=== PATIENT | female | born 1960 | race Caucasian/White ===

== ENCOUNTER 2016-08-15 16:09 | Observation (INO) ==
[2016-08-15 17:03] LABS: MANUAL DIFF NEEDED? NO
[2016-08-15 17:04] LABS: BASO% 0.1 % (0.0-0.8); EOS# 0.24 X1000 (0.0-0.7); EOS% 3.2 % (0.0-10.0); HEMATOCRIT 36.1 % (37.0-47.0); HEMOGLOBIN 11.6 g/dL (12.0-16.0); IMM GRAN# 0.02 X1000 (0.0-0.04); IMM GRAN% 0.3 % (0.0-0.5); LYMPH# 1.41 X1000 (1.2-3.4); MCH 27.6 PG (27-31); MCHC 32.1 g/dL (33-37); MCV 85.7 FL (81-99); MONO# 0.61 X1000 (0.11-0.59); MONO% 8.2 % (1.7-9.3); MPV 9.3 FL (7.4-10.4); NEUT% 69.2 % (42.2-75.2); PLT 230 X1000 (130-400); RBC 4.21 XMIL (4.2-5.4)
[2016-08-15 17:12] LABS: INR 1.03; PROTIME 10.9 Seconds (9.2-11.7); PTT 27.5 Seconds (22.0-36.0)
[2016-08-15 17:21] LABS: ALBUMIN 3.7 g/dL (3.5-5.0); CALCIUM 8.9 mg/dL (8.8-10.2); MAGNESIUM 1.4 mg/dL (1.5-2.7); POTASSIUM 4.4 mmol/L (3.5-5.1); TOTAL BILIRUBIN 0.27 mg/dL (0.20-1.00); TOTAL PROTEIN 6.5 g/dL (6.3-8.3)
--- NOTE | 2016-08-15 17:57 | Diag Imaging Result Document ---
PROCEDURE NAME: HEAD W/O CONTRAST - 08/15/2016 CT HEAD WITHOUT CONTRAST: FINDINGS: A dose reduction protocol was used. Compared with 10/14/2014. There is no evidence of hemorrhage, mass effect, midline shift, or hydrocephalus. There are minimal chronic microvascular ischemic changes. There is no evidence of infarct, although acute infarcts may not be immediately visible. Visualized portions of paranasal sinuses appear essentially clear. IMPRESSION: No visible acute intracranial abnormality. No hemorrhage or mass effect.
[2016-08-15] MEDS ORDERED: MAGNESIUM SULFATE 2 GM/S.W.I. 50 ML IV ONE (18:00)
--- NOTE | 2016-08-15 18:06 | Diag Imaging Result Document ---
PROCEDURE NAME: CHEST-2 VIEWS - 08/15/2016 CHEST 2 VIEWS: COMPARISON: Compared with 03/01/2016. FINDINGS: Heart size appears the upper range of normal and stable. There is slight fullness at the right hilum, possibly related to mild perihilar infiltrate or atelectasis. The remainder of the lungs appear clear. There is no pleural effusion or pneumothorax identified. IMPRESSION: Slight fullness at the right hilum, which may relate to mild perihilar infiltrate or atelectasis. Followup is recommended.
--- NOTE | 2016-08-15 18:39 | HISTORY AND PHYSICAL ---
CHIEF COMPLAINT: Headache and accelerated hypertension. HISTORY OF PRESENT ILLNESS: Ms Gamble, 56-year-old white female patient with multiple medical problems including longstanding diabetes, poorly controlled, hypertension, hyperlipidemia, COPD requiring home oxygen, mood disorder, uterine cancer. The patient claims she had headache for 3 days throbbing in nature, associated with mild nausea. The patient claims she had migraines for many years. Usually she takes [id number] Aleve, Advil or Excedrin which takes care of her headache. She took those medicines but it was not helping. She did have some nausea. The patient came to my office. Her systolic blood pressure was more than 200. Patient was in mild to moderate distress. I evaluated the patient. Because of her headache, accelerated blood pressure and other risk factor, I decided to admit the patient for further care. The patient was also complaining of pain in her ear. No ear drainage. She denied any sore throat. No dysphagia or odynophagia. No spitting up of blood. No neck stiffness. The patient does have cough with scanty sputum production. The patient does get short of breath with exertion. No abdominal pain. Denied any diarrhea, blood or mucus in the stool. Complaining of urinary frequency, urgency, dysuria, at times pain in the lower back and legs. No history suggestive of DVT. The patient does have longstanding diabetes. Her blood sugar was staying high. No major hypoglycemic episode. The patient is poorly compliant to diet and medication. The patient does have depression and mood disorder. The patient does have labile mood. No suicidal or homicidal ideation. ALLERGIES: Patient is allergic to codeine. HOME MEDICATIONS: Include Levemir 50 units once a day, NovoLog 12 units twice a day, metformin 850 mg b.i.d., Zestril 20 mg daily, Toprol-XL 50 mg b.i.d., Lipitor 40 mg daily, the patient is on Effexor 150 mg daily, Lamictal 150 mg b.i.d., the patient is on trazodone she does not remember the dose. The patient is on Risperdal. PAST MEDICAL HISTORY: Hypertension, hyperlipidemia, diabetes mellitus, mood disorder, uterine cancer status post hysterectomy, migraine headache, low back pain. The patient had a cholecystectomy, appendectomy, right ankle surgery. Patient had stent placement in LAD. PERSONAL HISTORY: Single. Patient trying to quit smoking. She is on Chantix still smoking 4-5 cigarettes a day. Denied alcohol or substance abuse. Patient is being followed by psychiatrist for her mood disorder. REVIEW OF SYSTEMS: As per HPI. Otherwise unobtainable. PHYSICAL EXAMINATION: GENERAL: Middle-aged white female patient in mild distress. VITAL SIGNS: Blood pressure 180/77, pulse 75, respirations 20, temperature 98 degrees. SKIN: Normal turgor. No rash or petechiae. HEENT: Head atraumatic, normocephalic. [place] conjunctivae. Anicteric sclerae. Extraocular muscle movement normal. Fundus cannot be penetrated. Good oral hygiene. No tonsillopharyngeal congestion or exudate. Both ears did show some orchitis externa. Nose benign. NECK: Supple. No JVD, thyromegaly or lymphadenopathy. CHEST: Bilateral good air entry present. Bibasilar crepitation. Occasional wheezing. CARDIOVASCULAR: S1 and S2 heard. No gallop or thrill. ABDOMEN: Soft, globular. Bowel sounds present. Mild hypogastric tenderness. No guarding or rigidity. EXTREMITIES: No cyanosis, clubbing. No acute DVT. Minimal swelling most likely due to dependency in the lower legs. Crepitation both the knee joints. POLE CUTTER: Alert, awake, oriented x3. No focalities. The patient did have labile mood. LAB DATA: Revealed WBC count 7.41, hemoglobin 11.6, hematocrit 36.1, platelet count was 230,000. PT and PTT were normal. BUN 16, creatinine 1.3. Blood sugar was 385. Magnesium was 1.4. Urinalysis result is pending. I did CT scan of the head because of headache and accelerated hypertension. No visible acute intracranial abnormality. No hemorrhage or mass effect. CONSIDERATION: 1. Headache. 2. Accelerated hypertension. 3. History suggestive of possible urinary tract infection. 4. Otitis. 5. Uncontrolled diabetes. 6. Low back pain. 7. Hyperlipidemia. 8. Mood disorder. PLAN: Admit the patient. Symptomatic treatment. Close observation. Encouraged smoking cessation. Monitor Accu-Chek. Overall plan discussed with the patient and she is in agreement.
[2016-08-15] MEDS: NORCO-7.5 PO PRN (19:01)
[2016-08-15] MEDS: ROCEPHIN 1 GM/NS 50 ML IV SCH (19:04)
[2016-08-15] MEDS: PROTONIX IV SCH (19:04)
[2016-08-15] MEDS: SODIUM CHLORIDE 0.9% INJ SCH (19:04)
[2016-08-15 19:40] LABS: URINE MICRO REVIEW NEEDED? NO; URINE SOURCE CLEAN CATCH
[2016-08-15 19:51] LABS: BILIRUBIN URINE NEGATIVE (NEGATIVE); BLOOD URINE NEGATIVE (NEGATIVE); COLOR YELLOW; GLUCOSE URINE >1000 mg/dL (NEGATIVE); LEUKOCYTES URINE NEGATIVE (NEGATIVE); NITRITE URINE NEGATIVE (NEGATIVE); PH URINE 6.5; PROTEIN URINE 70 mg/dL (NEGATIVE); SP GRAVITY URINE 1.027; TURBIDITY URINE CLEAR (CLEAR); UR EPITHELIAL CELLS <10 /HPF (<10); URINE BACTERIA 1+ /HPF; URINE RBC <10 /HPF (<10); URINE WBC <10 /HPF (<10); UROBILINOGEN URINE NORMAL (NORMAL)
[2016-08-15] MEDS: LAMICTAL PO SCH (20:28)
[2016-08-15] MEDS: RISPERDAL PO SCH (20:28)
[2016-08-15] MEDS: LIPITOR PO SCH (20:28)
[2016-08-15] MEDS: TOPROL XL PO SCH (20:29)
[2016-08-15] MEDS: GLUCOPHAGE PO SCH (20:29)
[2016-08-15] MEDS: CHANTIX PO SCH (20:37)
[2016-08-15] MEDS: HUMALOG SUBQ SCH (22:38)
[2016-08-16] MEDS: NORCO-7.5 PO PRN ×3 (02:18→23:36)
[2016-08-16 06:10] LABS: MANUAL DIFF NEEDED? NO
[2016-08-16] MEDS: HUMALOG SUBQ SCH ×4 (06:12→23:51)
[2016-08-16 06:19] LABS: BASO% 0.1 % (0.0-0.8); EOS# 0.29 X1000 (0.0-0.7); EOS% 4.1 % (0.0-10.0); HEMATOCRIT 35.8 % (37.0-47.0); HEMOGLOBIN 11.4 g/dL (12.0-16.0); IMM GRAN# 0.03 X1000 (0.0-0.04); IMM GRAN% 0.4 % (0.0-0.5); LYMPH# 1.52 X1000 (1.2-3.4); LYMPH% 21.7 % (20.5-51.1); MCH 27.7 PG (27-31); MCHC 31.8 g/dL (33-37); MCV 86.9 FL (81-99); MONO# 0.63 X1000 (0.11-0.59); MPV 9.4 FL (7.4-10.4); NEUT% 64.7 % (42.2-75.2); PLT 207 X1000 (130-400); RBC 4.12 XMIL (4.2-5.4)
[2016-08-16 06:28] LABS: HEMOGLOBIN A1C 10.6 % (4.8-6.0)
[2016-08-16 06:39] LABS: AGAP 12; ALBUMIN 3.5 g/dL (3.5-5.0); ALKALINE PHOSPHATASE 95 U/L (32-104); BUN 18 mg/dL (8-22); CALCIUM 8.7 mg/dL (8.8-10.2); CHLORIDE 96 mmol/L (98-107); COSMO 292; GOT 10 U/L (10-30); GPT 13 U/L (10-36); HDL 29 mg/dL (45-65); LDL 57 mg/dL; MAGNESIUM 1.7 mg/dL (1.5-2.7); POTASSIUM 5.1 mmol/L (3.5-5.1); SODIUM 138 mmol/L (136-145); TCO2 30 mmol/L (25-35); TOTAL BILIRUBIN 0.21 mg/dL (0.20-1.00); TOTAL PROTEIN 6.5 g/dL (6.3-8.3); TRIGLYCERIDES 190 mg/dL (35-135); VLDL 38 mg/dL
[2016-08-16] MEDS: SYMBICORT 80/4.5 MICROGM INHALER INH SCH ×2 (07:05→19:17)
[2016-08-16] MEDS: CORTISPORIN OTIC SOLN BOTH EARS SCH ×3 (08:27→22:33)
[2016-08-16] MEDS: CHANTIX PO SCH ×2 (08:29→22:31)
[2016-08-16] MEDS: LAMICTAL PO SCH ×2 (08:30→22:30)
[2016-08-16] MEDS: TOPROL XL PO SCH ×2 (08:31→22:30)
[2016-08-16] MEDS: EFFEXOR XR PO SCH (08:31)
[2016-08-16] MEDS: GLUCOPHAGE PO SCH ×2 (08:31→22:30)
[2016-08-16] MEDS: LEVEMIR SUBQ SCH (08:32)
[2016-08-16] MEDS ORDERED: PRINIVIL PO SCH (09:00)
[2016-08-16] MEDS ORDERED: IMITREX PO ONE (09:21)
--- NOTE | 2016-08-16 09:52 | PROGRESS NOTE ---
DATE: 08/16/2016 SUBJECTIVE: Ms. Gamble is still complaining of moderate headache. She denies any nausea or vomiting. The patient does have pain in her ear. Blood sugar is still staying high. Does have chronic cough with scanty sputum production. No typical chest pain. Denied abdominal pain, nausea, vomiting. No diarrhea, blood, or mucus in the stool. OBJECTIVE: Vital Signs: Her vital signs noted. Blood pressure 187/85. Neck: Supple. No JVD. Lungs: Bilateral occasional wheezing. CVS: S1 and S2 heard. Abdomen: Soft, globular. Bowel sounds present. Extremities: No cyanosis, clubbing. No acute DVT. Minimal swelling. CRACKLING PRESS OPERATOR: Alert, awake, able to move all 4 limbs. CONSIDERATION: 1. Patient admitted with significant headache, uncontrolled hypertension. I am going to increase her lisinopril to twice a day. Optimize headache medicine. 2. Uncontrolled diabetes mellitus. 3. Otitis. 4. Chest x-ray did reveal fullness in the right hilum, which may be due to perihilar infiltrate or atelectasis. I will repeat chest x-ray in the morning. Continue rest of the treatment. 5. Her other problems includes mood disorder, hyperlipidemia. Overall plan discussed with the patient. She is in agreement.
[2016-08-16] MEDS: LOVENOX SUBQ SCH (12:00)
[2016-08-16] MEDS ORDERED: ZOFRAN IV PRN (15:33)
[2016-08-16] MEDS: CATAPRES PO PRN ×2 (15:45→23:36)
[2016-08-16] MEDS: SODIUM CHLORIDE 0.9% INJ SCH (17:21)
[2016-08-16] MEDS: PROTONIX IV SCH (17:21)
[2016-08-16] MEDS: ROCEPHIN 1 GM/NS 50 ML IV SCH (17:21)
[2016-08-16] MEDS: PRINIVIL PO SCH (22:30)
[2016-08-16] MEDS: RISPERDAL PO SCH (22:30)
[2016-08-16] MEDS: LIPITOR PO SCH (22:30)
[2016-08-17] MEDS: HUMALOG SUBQ SCH ×3 (06:35→22:53)
[2016-08-17 06:45] LABS: ALBUMIN 3.4 g/dL (3.5-5.0); CALCIUM 8.7 mg/dL (8.8-10.2); POTASSIUM 4.7 mmol/L (3.5-5.1); TOTAL BILIRUBIN 0.26 mg/dL (0.20-1.00)
[2016-08-17] MEDS: SYMBICORT 80/4.5 MICROGM INHALER INH SCH ×2 (07:30→20:24)
[2016-08-17] MEDS: CHANTIX PO SCH ×2 (08:50→20:01)
[2016-08-17] MEDS: PRINIVIL PO SCH ×2 (08:50→20:00)
[2016-08-17] MEDS: EFFEXOR XR PO SCH (08:51)
[2016-08-17] MEDS: TOPROL XL PO SCH ×2 (08:51→20:01)
[2016-08-17] MEDS: GLUCOPHAGE PO SCH ×2 (08:51→20:00)
[2016-08-17] MEDS: LAMICTAL PO SCH ×2 (08:51→20:00)
[2016-08-17] MEDS: LOVENOX SUBQ SCH (08:52)
[2016-08-17] MEDS: LEVEMIR SUBQ SCH (08:52)
[2016-08-17] MEDS: CORTISPORIN OTIC SOLN BOTH EARS SCH ×3 (08:52→20:02)
[2016-08-17] MEDS: NORCO-7.5 PO PRN ×2 (08:55→17:57)
--- NOTE | 2016-08-17 09:26 | Diag Imaging Result Document ---
PROCEDURE NAME: CHEST-2 VIEWS - 08/17/2016 FRONTAL AND LATERAL CHEST, TWO VIEWS: COMPARISON: Compared to 08/15/2016. FINDINGS: The lungs are well expanded. Heart is borderline mildly prominent. Minimal vascular distension. No consolidation. No pleural effusions. IMPRESSION: Mild cardiac prominence with minimal vascular distension.
--- NOTE | 2016-08-17 09:36 | PROGRESS NOTE ---
DATE: 08/17/2016 SUBJECTIVE: Ms. Asencio is doing fair. The patient does have cough with scanty sputum production. No hemoptysis. She is still complaining of headache. Her blood pressure was high. Last night, it was 216/85, slasher tender 187/83. I increased her lisinopril 20 mg twice a day. No typical chest pain. The patient started using her BiPAP. No nausea or vomiting. Blood sugar doing fair. The patient is on sliding scale insulin. PHYSICAL EXAMINATION: Vital Signs: Her vital signs noted. Neck: Supple. No JVD. Lungs: Bilateral good air entry present. Few basal crepitations. CVS: S1 and S2 heard. Abdomen: Soft, globular. Bowel sounds present. Extremities: No cyanosis, clubbing. No acute DVT. ANIMAL CAREGIVER: Alert, awake. Able to move all 4 limbs. CONSIDERATION: 1. Uncontrolled hypertension, headache. I am going to add diuretics. Continue rest of the treatment. History suggestive of chest, congestion, cough, abnormal chest x-ray. I repeated chest x-ray today. Result is pending. 2. Uncontrolled diabetes mellitus, on insulin and sliding scale. We will continue. 3. Sleep apnea. 4. Mood disorder. We will continue current treatment and close observation. PLAN: I am going to monitor patient today.
[2016-08-17] MEDS: BUMEX PO SCH (13:44)
[2016-08-17] MEDS: SODIUM CHLORIDE 0.9% INJ SCH (17:57)
[2016-08-17] MEDS: PROTONIX IV SCH (17:57)
[2016-08-17] MEDS: ROCEPHIN 1 GM/NS 50 ML IV SCH (17:58)
[2016-08-17] MEDS: RISPERDAL PO SCH (20:01)
[2016-08-17] MEDS: LIPITOR PO SCH (20:01)
[2016-08-17] MEDS: CATAPRES PO PRN (20:50)
[2016-08-18] MEDS: HUMALOG SUBQ SCH ×2 (06:13→11:27)
[2016-08-18 07:31] LABS: ALBUMIN 3.6 g/dL (3.5-5.0); CALCIUM 8.8 mg/dL (8.8-10.2); MAGNESIUM 1.3 mg/dL (1.5-2.7); POTASSIUM 4.4 mmol/L (3.5-5.1); TOTAL BILIRUBIN 0.28 mg/dL (0.20-1.00)
[2016-08-18 07:43] VITALS: BP 156/63
--- NOTE | 2016-08-18 08:09 | EKG Report ---
Test Performed on : 08/15/2016 6:09:34 PM Test Reason : headache, emergent HTN Blood Pressure : / mmHG Vent. Rate : 076 BPM Atrial Rate : 076 BPM P-R Int : 186 ms QRS Dur : 066 ms QT Int : 390 ms P-R-T Axes : 038 075 067 degrees QTc Int : 438 ms Normal sinus rhythm. Septal infarct (cited on or before 14-OCT-2014) Abnormal ECG When compared with ECG of 14-OCT-2014 07:18, No significant change was found Confirmed by Kerline ARAGON, Pedro Herndon ([id number]) on 08/18/2016 4:24:31 PM
[2016-08-18] MEDS ORDERED: MAGNESIUM SULFATE 2 GM/S.W.I. 50 ML IV ONE (09:30)
[2016-08-18] MEDS: GLUCOPHAGE PO SCH (10:42)
[2016-08-18] MEDS: PRINIVIL PO SCH (10:42)
[2016-08-18] MEDS: BUMEX PO SCH (10:42)
[2016-08-18] MEDS: LAMICTAL PO SCH (10:43)
[2016-08-18] MEDS: TOPROL XL PO SCH (10:44)
[2016-08-18] MEDS: CHANTIX PO SCH (10:44)
[2016-08-18] MEDS: CORTISPORIN OTIC SOLN BOTH EARS SCH (10:44)
[2016-08-18] MEDS: EFFEXOR XR PO SCH (10:45)
[2016-08-18] MEDS: LEVEMIR SUBQ SCH (10:45)
[2016-08-18] MEDS: LOVENOX SUBQ SCH (10:46)
[2016-08-18] MEDS ORDERED: INSULIN PEN NEEDLES ONE (10:55)
[2016-08-18] MEDS: NORCO-7.5 PO PRN (10:58)
--- NOTE | 2016-08-19 16:00 | DISCHARGE SUMMARY ---
ADMISSION DATE: 08/15/2016 DISCHARGE DATE: 08/18/2016 FINAL DISCHARGE DIAGNOSES: 1. Accelerated hypertension. 2. Headache. 3. Otitis. 4. Uncontrolled diabetes mellitus. 5. Chronic obstructive pulmonary disease. 6. Hyperlipidemia. 7. Hypomagnesemia. 8. Mood disorder. 9. Sleep apnea. 10. Gastritis and reflux disease. HISTORY: Ms. Gamble is a 56-year-old white female patient who came to my office with a headache of 7 days duration, moderate in intensity, not responding to outpatient treatment. The patient did have some nausea, watering from the eyes and nose. Usually her headache responds to Aleve or Advil. The patient also had pain in both ears, some sinus drainage. Her blood pressure was very much elevated, more than 200. The patient was feeling unsteady. Her blood sugar was staying high. I evaluated the patient in the office and decided to admit her for further care. HOSPITAL COURSE: The patient was treated with pain medicine, symptomatic treatment, IV antibiotics, supportive care. Her blood pressure remained elevated. Her headache persisted. I adjusted her blood pressure medicine. Increased lisinopril to 20 mg twice a day. Put her on diuretics. Continued bronchodilator care. Gave her eardrops. Her clinical condition gradually improved. Her headache improved and I decided to discharge the patient home. PHYSICAL EXAMINATION: On the day of discharge blood pressure was better. Neck: Supple. No JVD. Lungs: Bilateral good air entry present. Occasional wheezing. CVS: S1 and S2 heard. Abdomen: Soft, globular. Bowel sounds present. Extremities: Leg swelling improved. APPLICATIONS SUPPORT LEAD: Alert, awake. Able to move all 4 limbs. LAB DATA: Revealed electrolytes fairly benign. Blood sugar was staying high. I did adjust her insulin and explained to the patient about diet and how to adjust her insulin. Hemoglobin A1c was 10.6. Her magnesium was 1.5. We gave her magnesium prior to discharge, IV and also p.o. Total cholesterol 124, triglyceride 190, LDL 57. Cardiac isoenzymes negative. Hemoglobin 11.4, hematocrit 35.8, WBC count was 7. Urinalysis did not reveal UTI. Urine culture was no growth. CT scan of the brain did not show any acute changes. Initial chest x-ray did reveal some hilar fullness. Repeat chest x-ray did not show the same. DISCHARGE INSTRUCTIONS: Advised patient to quit smoking. Monitor blood pressure and Accu-Chek at home. Take medicine regularly. Follow up with me in a week. Follow up with foreman/project manager as scheduled. In case of more distress, call us back or go to the emergency room. I also gave her antibiotics for bronchitis and sinusitis and otitis. DISCHARGE CONDITION: Satisfactory.
== END 2016-08-18 13:36 | disposition home or self-care (01) ==
LOC: INTOOBSV 16:09 → DIRADM 16:09 → 3N 16:19
PROVIDERS: ADMIT Internal Medicine; ATTEND Internal Medicine
DX: I16.1 Hypertensive emergency (principal); R51 Headache; E11.65 Type 2 diabetes mellitus with hyperglycemia; E78.5 Hyperlipidemia, unspecified; M54.5 Low back pain; J44.9 Chronic obstructive pulmonary disease, unspecified; F39 Unspecified mood [affective] disorder; F17.210 Nicotine dependence, cigarettes, uncomplicated; G47.30 Sleep apnea, unspecified; R11.0 Nausea; H92.09 Otalgia, unspecified ear; R35.0 Frequency of micturition; R30.0 Dysuria; R39.15 Urgency of urination; Z91.14 Patient's other noncompliance with medication regimen; Z91.19 Patient's noncompliance with other medical treatment and regimen; Z71.6 Tobacco abuse counseling; Z99.81 Dependence on supplemental oxygen; Z79.899 Other long term (current) drug therapy; Z79.51 Long term (current) use of inhaled steroids; Z79.84 Long term (current) use of oral hypoglycemic drugs; Z79.4 Long term (current) use of insulin; Z95.5 Presence of coronary angioplasty implant and graft; Z85.42 Personal history of malignant neoplasm of other parts of uterus
CPT/HCPCS: 70450; 71020; 80053; 80061; 81001; 82550; 82948; 83036; 83735; 84439; 84443; 84484; 85025; 85610; 85730; 87088; 93005; 93010; 94761; C9113; J0696; J1650; J1815; J2405; J3475; 94640-76; S0164

== ENCOUNTER 2016-08-24 00:22 | Emergency (ER) ==
[2016-08-24] MEDS ORDERED: NS 1,000 ML IV ONE (00:43)
--- NOTE | 2016-08-24 00:58 | PROVIDER DOCUMENTATION ---
HPI-General Adult - General Source: patient - History of Present Illness -Gen Adult Nature of Presenting Problems: Pt is a 56 yof who presents to ER with CC of elevated B/S. Pt reports that she took her insulin at 2130 and checked her blood sugar at 2330 and reports it was 505. Pt did not know how to do her sliding scale and decided it would be best to come to the ER. Pt reports that she has not felt good all day and has "eaten everything as fast as possible." Pt complains of headache, muscle aches, weak legs, blurry vision, nausea. Location of Pain/Injury: reports: generalized Pain Radiation: reports: no radiation Quality of Pain: reports: aching Severity: reports: moderate Onset/Duration: reports: this morning Timing: reports: still present Associated Symptoms: reports: EENT symptoms (blurry vision), fatigue, headaches , muscle aches, nausea, sensory/motor loss (bilateral feet numbness (not new)), weakness, trouble walking. denies: anxiety, arm pain, back/neck pain, chest pain, constipation, cough, diaphoresis, diarrhea, dizziness, fever/chills, genitourinary problems, heartburn, joint pain, loss of appetite, malaise, sinus congestion/drainage, shortness of breath, vomiting - Diabetes Related Context Context: reports: high blood sugar <Alek Pitts - Last Filed: 08/24/16 01:39> - History of Present Illness -Gen Adult Nature of Presenting Problems: Pt took 12 units of Novalog at 2130, which is her normal dose. <Marychuy Meier - Last Filed: 08/24/16 03:00> <Nate Prakash - Last Filed: 08/24/16 03:33> - General Chief Complaint: High Blood Sugar Stated Complaint: ELEVATED BLOOD SUGAR Time Seen by Provider: 08/24/16 00:36 Allergies/Adverse Reactions: Patient Allergies Allergy/AdvReac Type Severity Reaction Status Date / Time codeine Allergy Mild RASH Verified 08/24/16 00:31 Home Medications: Home Medication List Medication Instructions Recorded Confirmed Last Taken Type Lamotrigine [Lamictal] 150 mg PO BID 04/10/12 08/24/16 08/23/16 History Metformin HCl 850 mg PO BID 04/10/12 08/24/16 08/23/16 History Metoprolol Succinate E.r. [Toprol 50 mg PO BID 04/10/12 08/24/16 08/23/16 History Xl] Risperidone [Risperdal] 3 mg PO HS 04/10/12 08/24/16 08/23/16 History Venlafaxine E.r. [Effexor Xr] 150 mg PO DAILY #0 05/10/13 08/24/16 08/23/16 History Atorvastatin Calcium [Lipitor] 40 mg PO HS 08/15/16 08/24/16 08/23/16 History Budesonide/Formoterol Inhaler 2 puff INH BID 08/15/16 08/24/16 08/23/16 History [Symbicort 80/4.5 Microgm Inhaler] Insulin Aspart [Novolog] 12 unit SQ BID 08/15/16 08/24/16 08/23/16 21:30 History Varenicline Tartrate [Chantix] 1 mg PO BID 08/15/16 08/24/16 08/23/16 History Bumetanide [Bumex] 1 mg PO DAILY #0 tablet 08/18/16 08/24/16 08/23/16 Rx Clonidine [Catapres] 0.1 mg PO Q6H PRN PRN #0 tablet 08/18/16 08/24/16 08/23/16 20:00 Rx Insulin Detemir [Levemir] 55 units SUBQ DAILY #0 08/18/16 08/24/16 08/23/16 Rx Lisinopril [Zestril] 20 mg PO BID #60 08/18/16 08/24/16 08/23/16 Rx Magnesium Oxide 400 mg PO BID #30 tablet 08/18/16 08/24/16 08/23/16 Rx Review of Systems - Adult - REVIEW OF SYSTEMS - ADULT Constitutional: reports: nafisa. denies: chills, fever, night sweats, weight gain, weight loss Eyes: reports: no symptoms reported Ears, Nose, Mouth & Throat: reports: no symptoms reported Cardiovascular: denies: chest pain, edema, heart murmur, irregular heart rate, palpitations, poor circulation, syncope Respiratory: denies: chronic cough, cough, dyspnea on exertion, excessive sputum production, hemoptysis, pleurisy, shortness of breath, wheezing Gastrointestinal: reports: nausea. denies: abdominal pain, hematemesis, constipation, diarrhea, difficulty swallowing, frequent heartburn, poor appetite , rectal bleeding, vomiting Genitourinary: reports: no symptoms reported Musculoskeletal: reports: frequent leg cramps, muscle aches, muscle weakness, neck pain. denies: bone pain, back pain, joint pain, joint swelling Integumentary: reports: no symptoms reported Neurological: reports: no symptoms reported Psychiatric: reports: anxiety, anti-depressant use, depression, emotional problems. denies: alcohol/drug dependence, insomnia, panic attacks, suicidal thoughts Endocrine: reports: no symptoms reported Hematologic/Lymphatic: reports: no symptoms reported Allergic/Immunologic: reports: no symptoms reported All Other Systems: Reviewed and Negative <Alek Pitts - Last Filed: 08/24/16 01:39> Past History - Adult - PAST MEDICAL HISTORY-ADULT Review of Records: reports: Nursing Assessment Review, Medications Reviewed Cardiovascular: reports: CAD, HTN, hyperlipidemia, IA, other (mitral stenosis) Respiratory: reports: COPD Gastrointestinal: reports: IBS, pancreatitis, other (hiatal hernia) Psychiatric: reports: bipolar Endocrine/Immune: reports: Diabetes - PRIOR SURGERIES/PROCEDURES Surgical/Procedure History: reports: appendectomy, cholecystectomy, cardiac stent (LAD), hysterectomy, tonsillectomy, other (facial reconstruction) - PRIOR HOSPITALIZATIONS Prior Hospitalizations: reports: for similar symptoms - IMMUNIZATION STATUS Childhood Immunizations: See Nurse Assessment Flu Vaccine: See Nurse Assessment <Alek Pitts - Last Filed: 08/24/16 01:39> Physical Exam-General - PHYSICAL EXAM-ADULT Initial Vital Signs Reviewed: Yes - CONSTITUTIONAL General Appearance: appears well, alert, moderate distress, obese, anxious. negative: no apparent distress, mild distress, severe distress, cachetic, thin, lethargic, slow to respond, obtunded, combative - NECK Neck: non-tender, full range of motion (painful ROM), supple - RESPIRATORY Respiratory: chest non-tender, lungs clear, normal breath sounds. negative: respiratory distress, decreased breath sounds, accessory muscle use, wheezing - CARDIOVASCULAR Cardiovascular: normal peripheral pulses, regular rate, rhythm. negative: bradycardia, tachycardia, irregularly irregular - GASTROINTESTINAL (ABDOMEN) Abdominal Exam: normal bowel sounds, non tender, soft. negative: abnormal bowel sounds, tenderness, mass - MUSCULOSKELETAL Extremity: normal range of motion, non-tender, normal gait, other (numb bilateral feet (not new onset)) Peripheral Pulses: dorsalis-pedis (R): 2+, dorsalis-pedis (L): 2+ - NEUROLOGIC Neurologic: grossly normal, no motor/sensory deficits, sensory deficit ( bilateral feet numbness (not new onset)). negative: focal weakness, motor weakness - PSYCHIATRIC Psych/Mental Status: normal thought content, normal thought process, oriented x 3, anxious, disheveled, depressed affect, tearful. negative: normal mood/affect , disoriented x 3, paranoid <Alek Pitts - Last Filed: 08/24/16 01:39> Progress - CHANGE OF SHIFT REPORT (ED Provider) Report Given and Care Transferred to:: Dr. Prakash Time of Transfer: 02:00 Items Pending: Labs, Other (FSBS) Tentative Impression of Patient: hyperglycemia, [place] <Marychuy Meier - Last Filed: 08/24/16 03:00> Departure <Alek Pitts - Last Filed: 08/24/16 01:39> - Departure Certified Medical Emergency: Emergent <Marychuy Meier - Last Filed: 08/24/16 03:00> - Departure Time of Disposition Order: 03:33 Certified Medical Emergency: Emergent <Nate Prakash - Last Filed: 08/24/16 03:33> - Departure DIAGNOSIS: Hyperglycemia Headache Qualifiers: Headache type: unspecified Headache chronicity pattern: acute headache Intractability: not intractable Qualified Code(s): R51 - Headache Disposition: HOME 01 Condition: Stable Additional Instructions: Follow up with PCP for recheck and further management. Drink plenty of fluids. Follow low glycemic index diet. ED Follow Up Instructions: You have been treated by a care provider in the Emergency Department. These instructions are being provided to you so you can have an understanding of how to care for yourself upon discharge. Upon discharge from the Emergency Department, you are responsible for making arrangements for follow-up care by a physician of your choice. Take all prescribed medications as directed. Return to the Emergency Department immediately for any new or worsening symptoms. You may call the Physician Referral phone number at [phone] to obtain a list of Physicians who are taking new patients. Referrals: Haile Tovar MD [Primary Care Provider] - Instructions: Migraine Headache, [id number] Attestation - Scribe Verification/Attestation Scribe:: Alek Pitts Acting as Scribe for:: Marychuy Meier Scribe documention review:: This chart was documented by a scribe and accurately reflects the service the provider performed and the decisions made by the provider. <Alek Pitts - Last Filed: 08/24/16 01:39> Physician Attestation
[2016-08-24 01:18] LABS: MANUAL DIFF NEEDED? NO
[2016-08-24 01:18] LABS: URINE MICRO REVIEW NEEDED? NO; URINE SOURCE CLEAN CATCH
[2016-08-24 01:28] LABS: BASO% 0.3 % (0.0-0.8); EOS# 0.39 X1000 (0.0-0.7); EOS% 3.6 % (0.0-10.0); HEMATOCRIT 37.5 % (37.0-47.0); HEMOGLOBIN 12.4 g/dL (12.0-16.0); IMM GRAN# 0.03 X1000 (0.0-0.04); IMM GRAN% 0.3 % (0.0-0.5); LYMPH# 1.87 X1000 (1.2-3.4); LYMPH% 17.4 % (20.5-51.1); MCH 28.1 PG (27-31); MCHC 33.1 g/dL (33-37); MONO# 0.94 X1000 (0.11-0.59); MONO% 8.7 % (1.7-9.3); MPV 9.8 FL (7.4-10.4); NEUT% 69.7 % (42.2-75.2); PLT 299 X1000 (130-400); RBC 4.41 XMIL (4.2-5.4)
[2016-08-24 01:29] LABS: BILIRUBIN URINE NEGATIVE (NEGATIVE); BLOOD URINE NEGATIVE (NEGATIVE); COLOR YELLOW; GLUCOSE URINE >1000 mg/dL (NEGATIVE); LEUKOCYTES URINE TRACE (NEGATIVE); NITRITE URINE NEGATIVE (NEGATIVE); PROTEIN URINE 30 mg/dL (NEGATIVE); SP GRAVITY URINE 1.017; TURBIDITY URINE CLEAR (CLEAR); UROBILINOGEN URINE NORMAL (NORMAL)
[2016-08-24 01:30] LABS: UR EPITHELIAL CELLS <10 /HPF (<10); URINE BACTERIA NEGATIVE /HPF; URINE CULTURE NEEDED? YES; URINE RBC <10 /HPF (<10); URINE WBC <10 /HPF (<10)
[2016-08-24 01:32] LABS: ACETONE SERUM NEGATIVE (NEGATIVE)
[2016-08-24] MEDS ORDERED: HUMULIN R IV ONE ×3 (01:35→04:19)
[2016-08-24] MEDS ORDERED: NORCO-5 PO ONE (01:42)
[2016-08-24] MEDS ORDERED: CATAPRES PO ONE (01:42)
[2016-08-24] MEDS ORDERED: COMPAZINE IV ONE (01:44)
[2016-08-24] MEDS ORDERED: SODIUM CHLORIDE 0.9% INJ ONE (01:44)
[2016-08-24] MEDS ORDERED: PHENERGAN IV ONE (01:44)
[2016-08-24] MEDS ORDERED: BENADRYL IV ONE (01:45)
[2016-08-24 01:56] LABS: AGAP 14; ALKALINE PHOSPHATASE 90 U/L (32-104); AMYLASE 26 U/L (20-200); BUN 19 mg/dL (8-22); CALCIUM 9.5 mg/dL (8.8-10.2); CHLORIDE 86 mmol/L (98-107); COSMO 285; GOT 18 U/L (10-30); GPT 16 U/L (10-36); LIPASE 42 U/L (13-60); POTASSIUM 4.3 mmol/L (3.5-5.1); SODIUM 132 mmol/L (136-145); TCO2 32 mmol/L (25-35); TOTAL PROTEIN 7.2 g/dL (6.3-8.3)
[2016-08-24 04:12] VITALS: BP 156/76
== END 2016-08-24 04:31 | disposition home or self-care (01) ==
LOC: ED 00:22
DX: E11.65 Type 2 diabetes mellitus with hyperglycemia (principal); R51 Headache; M79.1 Myalgia; M62.81 Muscle weakness (generalized); R26.2 Difficulty in walking, not elsewhere classified; R53.83 Other fatigue; R25.2 Cramp and spasm; M54.2 Cervicalgia; R20.0 Anesthesia of skin; I25.10 Atherosclerotic heart disease of native coronary artery without angina pectoris; I10 Essential (primary) hypertension; E78.5 Hyperlipidemia, unspecified; I25.2 Old myocardial infarction; J44.9 Chronic obstructive pulmonary disease, unspecified; F31.9 Bipolar disorder, unspecified; E66.9 Obesity, unspecified; Z79.4 Long term (current) use of insulin; Z79.899 Other long term (current) drug therapy; Z95.5 Presence of coronary angioplasty implant and graft
CPT/HCPCS: 80053; 81001; 82009; 82150; 82948; 83690; 85025; 87077; 87088; 87186; 96361; 96374; 96375; J0780; J1200; J2550; J7030

== ENCOUNTER 2018-07-24 03:22 | Inpatient (IN) ==
[2018-07-24] MEDS ORDERED: HUMULIN R IV ONE (04:01)
[2018-07-24] MEDS ORDERED: NS 1,000 ML IV ONE (04:01)
--- NOTE | 2018-07-24 04:10 | PROVIDER DOCUMENTATION ---
HPI-General Adult - General Chief Complaint: High Blood Sugar Stated Complaint: HIGH BLOOD SUGAR Time Seen by Provider: 07/24/18 03:49 Source: patient Allergies/Adverse Reactions: Patient Allergies Allergy/AdvReac Type Severity Reaction Status Date / Time latex Allergy Intermediate RASH Verified 07/24/18 04:27 Home Medications: Home Medication List Medication Instructions Recorded Confirmed Last Taken Type Lamotrigine [Lamictal] 150 mg PO BID 04/10/12 07/24/18 07/02/18 History Metoprolol Succinate E.r. [Toprol 50 mg PO BID 04/10/12 07/24/18 07/02/18 History Xl] Risperidone [Risperdal] 3 mg PO HS 04/10/12 07/24/18 07/01/18 History Venlafaxine E.r. [Effexor Xr] 150 mg PO DAILY #0 05/10/13 07/24/18 07/02/18 History Gabapentin 600 mg PO TID 06/14/17 07/24/18 07/02/18 History Polyethylene Glycol 3350 [Miralax] 17 gm PO DIRECTED PRN 07/16/17 07/24/18 History Insulin Glargine [Lantus] 52 unit SUBQ BID 11/09/17 07/24/18 07/02/18 History Insulin Lispro [Humalog Glenn 26 units SQ TID 11/09/17 07/24/18 07/02/18 History Kwikpen] Atorvastatin Calcium [Lipitor] 40 mg PO HS 12/07/17 07/24/18 06/02/18 History Hydralazine [Apresoline] 25 mg PO TID 12/07/17 07/24/18 07/02/18 History Isosorbide Dinitrate 25 mg PO TID 01/23/18 07/24/18 07/02/18 History Tramadol/APAP [Ultracet 1 ea PO Q6H PRN PRN #20 tab 01/27/18 07/24/18 06/03/18 Rx 37.5MG/325Mg] Aspirin 81 mg PO DAILY 02/24/18 07/24/18 07/01/18 History Zolpidem [Ambien] 5 mg PO HS PRN PRN 02/24/18 07/24/18 06/02/18 History Albuterol 2.5MG/Ipratrop 0.5MG 3 ml INH Q6H PRN #120 neb 02/26/18 07/24/1806/25 Rx [Duoneb (A & A)] Budesonide/Formoterol Inhaler 2 puff INH RTBID inhaler 04/05/18 07/24/18 Rx [Symbicort 80/4.5 Microgm Inhaler] Torsemide [Demadex] 50 mg PO BID 07/02/18 07/24/18 Unknown History - History of Present Illness -Gen Adult Nature of Presenting Problems: pt was seen by myself last shift, signed out to am physician for hyperglycemia, pt was offered admission but decided to go home, since going home pt hasn't been able to keep her sugar below 600, pt denies f/c, trivedi, cp, sob, cough, ap, n/ v/d. pt is lying in bed in no acute distress. Location of Pain/Injury: reports: none Pain Radiation: reports: no radiation Quality of Pain: reports: none Severity: reports: mild Onset/Duration: reports: 2 days ago Timing: reports: still present Context/Activities at Onset: reports: none Modifying Factors: improves with: nothing Associated Symptoms: reports: denies symptoms Similar Symptoms Previously?: Yes Recently seen or treated by another doctor?: Yes Review of Systems - Adult - REVIEW OF SYSTEMS - ADULT Constitutional: reports: no symptoms reported Eyes: reports: no symptoms reported Ears, Nose, Mouth & Throat: reports: no symptoms reported Cardiovascular: reports: no symptoms reported Respiratory: reports: no symptoms reported Gastrointestinal: reports: no symptoms reported Genitourinary: reports: no symptoms reported Musculoskeletal: reports: no symptoms reported Integumentary: reports: no symptoms reported Neurological: reports: no symptoms reported Psychiatric: reports: no symptoms reported Endocrine: reports: see HPI Hematologic/Lymphatic: reports: no symptoms reported Allergic/Immunologic: reports: no symptoms reported All Other Systems: Reviewed and Negative Past History - Adult - PAST MEDICAL HISTORY-ADULT Review of Records: reports: Old Records Reviewed, Nursing Assessment Review, Medications Reviewed, Social history reviewed & non-contributory. Major Childhood Illnesses: reports: denies history Cardiovascular: reports: CAD, CHF, HTN, hyperlipidemia, DC, other (mitral stenosis) Respiratory: reports: COPD, lung disease, sleep apnea Gastrointestinal: reports: GERD, IBS, pancreatitis, other (hiatal hernia) Obstetrical/Gynecological: reports: uterine/ovarian cancer (uterine) Genitourinary: reports: kidney disease Musculoskeletal: reports: denies history Neurological: reports: denies history Psychiatric: reports: anxiety, bipolar Endocrine/Immune: reports: Diabetes Other Conditions: reports: denies history - PRIOR SURGERIES/PROCEDURES Surgical/Procedure History: reports: appendectomy, cholecystectomy, cardiac stent (LAD), hysterectomy, tonsillectomy, other (facial reconstruction) - PRIOR HOSPITALIZATIONS Prior Hospitalizations: reports: for similar symptoms - IMMUNIZATION STATUS Childhood Immunizations: See Nurse Assessment Flu Vaccine: See Nurse Assessment - FAMILY HISTORY Family History: reviewed, not pertinent Physical Exam-General - PHYSICAL EXAM-ADULT Initial Vital Signs Reviewed: Yes - CONSTITUTIONAL General Appearance: appears well - EYES Eyes: PERRL/EOMI - HEAD, EARS, NOSE, MOUTH & THROAT HENMT: normocephalic/atraumatic - NECK Neck: non-tender - RESPIRATORY Respiratory: chest non-tender - CARDIOVASCULAR Cardiovascular: normal peripheral pulses - GASTROINTESTINAL (ABDOMEN) Abdominal Exam: normal bowel sounds - LYMPHATIC Lymphatic: no adenopathy - MUSCULOSKELETAL Back Exam: normal inspection Extremity: normal range of motion - SKIN Integumentary: normal color - NEUROLOGIC Neurologic: harp regulator II-XII nml as tested - PSYCHIATRIC Psych/Mental Status: normal mood/affect Progress - PLAN OF CARE/RESULTS Progress/Plan/Lab Results: Vital Signs - 8 hr 07/24/18 03:34 Temperature 97.0 F L Pulse Rate 90 Respiratory Rate 18 Blood Pressure 184/67 O2 Sat by Pulse Oximetry 94 L Orders Category Date Time Status cxr [CHEST-1 VIEW] [RAD] Stat Exams 07/24/18 04:04 Ordered ABG [RESP] Stat Lab 07/24/18 04:01 Ordered BNP [PRO B-NATRIURETIC PEPTIDE] Stat Lab 07/24/18 04:03 Uncollected CBC WITH ELECTRONIC DIFF [HEME] Stat Lab 07/24/18 04:01 Uncollected CMP [COMPREHENSIVE METABOLIC PANEL] [CHEM] Stat Lab 07/24/18 04:01 Uncollected TROPONIN T Stat Lab 07/24/18 04:03 Uncollected UA [URINALYSIS] [URINALYSIS] Stat Lab 07/24/18 04:01 Uncollected Insulin Human Regular [Humulin R] Med 07/24/18 04:01 Once 10 unit IV NOW ONE Ns 1000 ml IV Bolus X1 Med 07/24/18 04:01 Ordered 0.9% Sodium Chloride Inj [Ns] 1,000 ml IV 999 mls/hr Result Diagrams: 07/24/18 04:15 07/24/18 04:15 Departure - Departure Date of Disposition Decision: 07/24/18 Time of Disposition Decision: 05:53 DIAGNOSIS: Hyperglycemia Disposition: ADMITTED INPATIENT 09 Certified Medical Emergency: Emergent Condition: Stable Referrals and Follow-Ups: Haile Tovar MD [Primary Care Provider] - - Critical Care Note This patient required my direct & personal management of CC.: No Attestation - Physician/ JAVIER Attestation Patient care was provided by Advanced Practice Provider:: No The physician spent face to face time with patient:: Yes Advanced Practice Provider documentation review:: Supervising physician onsite and consulted in the evaluation and care of this patient. The physician did have a face to face encounter with the patient.
[2018-07-24 04:23] LABS: BASO# 0.03 X1000 (0.0-0.2); BASO% 0.4 % (0.0-0.8); EOS# 0.56 X1000 (0.0-0.7); HEMATOCRIT 34.8 % (37.0-47.0); HEMOGLOBIN 10.7 g/dL (12.0-16.0); LYMPH# 0.86 X1000 (1.2-3.4); LYMPH% 12.3 % (20.5-51.1); MCH 28.9 PG (27-31); MCHC 30.7 g/dL (33-37); MCV 94.1 FL (81-99); MONO# 0.54 X1000 (0.11-0.59); MONO% 7.7 % (1.7-9.3); MPV 9.6 FL (7.4-10.4); NEUT# 4.98 X1000 (1.4-6.5); NEUT% 71.6 % (42.2-75.2); PLT 187 X1000 (130-400); RDW 17.3 % (11.5-14.5); WBC 6.97 X1000 (4.8-10.8)
[2018-07-24 04:37] LABS: ALLEN TEST YES; BE 8.8 mmoll (-3.0-3.0); BLOOD TYPE ARTERIAL; HCO3-(ACT) 31.8 mmoll (20.0-26.0); METHB 1.4 % (0.0-1.5); O2HB 95.2 % (95.0-99.0); PO2(98.6) 102 mmHg (60-100); SAMPLE BLOOD; SAO2 98.6 % (95.0-100.0); THB 11.1 g/dL (11.5-17.4); pH(98.6) 7.36 (7.35-7.45)
[2018-07-24 04:38] LABS: MODALITY CANNULA
[2018-07-24 04:39] LABS: PCO2(98.6) 64 mmHg (35-45)
[2018-07-24 04:57] LABS: ALB/GLOB RATIO 1.1; CALCIUM 9.1 mg/dL (8.8-10.2); CREATININE 1.5 mg/dL (0.5-0.9); POTASSIUM 3.8 mmol/L (3.5-5.1); TOTAL BILIRUBIN 0.26 mg/dL (0.20-1.00); TOTAL PROTEIN 7.7 g/dL (6.3-8.3)
--- NOTE | 2018-07-24 08:10 | Diag Imaging Result Doc PS360 ---
CHEST-1 VIEW - 07/24/2018 INDICATION: sob COMPARISON: 04/04/2018 FINDINGS: The lungs are normally expanded and clear. Heart size and mediastinal contours are normal. No pneumothorax or pleural effusion. IMPRESSION: Negative exam. Electronically signed by Rajat Zamora 07/24/2018 8:08 AM
[2018-07-24 08:33] LABS: URINE SOURCE CLEAN CATCH
[2018-07-24 09:04] LABS: BILIRUBIN URINE NEGATIVE (NEGATIVE); BLOOD URINE NEGATIVE (NEGATIVE); COLOR STRAW; GLUCOSE URINE >1000 mg/dL (NEGATIVE); KETONE URINE NEGATIVE (NEGATIVE); LEUKOCYTES URINE NEGATIVE (NEGATIVE); NITRITE URINE NEGATIVE (NEGATIVE); PROTEIN URINE NEGATIVE (NEGATIVE); SP GRAVITY URINE 1.002; TURBIDITY URINE CLEAR (CLEAR); UROBILINOGEN URINE NORMAL (NORMAL)
[2018-07-24 09:05] LABS: UR EPITHELIAL CELLS <10 /HPF (<10); URINE BACTERIA NEGATIVE /HPF; URINE RBC <10 /HPF (<10); URINE WBC <10 /HPF (<10)
[2018-07-24] MEDS ORDERED: MIRALAX PO PRN (09:25)
[2018-07-24] MEDS ORDERED: APRESOLINE PO SCH (09:25)
[2018-07-24] MEDS: DUONEB (A & A) INH SCH ×3 (10:57→19:55)
[2018-07-24] MEDS: ROCEPHIN 1 GM in NS 50 ML IV SCH (11:36)
[2018-07-24] MEDS: TOPROL XL PO SCH ×2 (11:37→21:11)
[2018-07-24] MEDS: ASPIRIN PO SCH (11:37)
[2018-07-24] MEDS: EFFEXOR XR PO SCH (11:38)
[2018-07-24] MEDS: DEMADEX PO SCH ×2 (11:39→21:09)
[2018-07-24] MEDS: ISORDIL PO SCH ×3 (11:40→17:10)
[2018-07-24] MEDS: LAMICTAL PO SCH ×2 (11:41→21:10)
[2018-07-24] MEDS: LOVENOX SUBQ SCH (11:42)
[2018-07-24] MEDS: ULTRACET 37.5MG/325MG PO PRN (11:42)
[2018-07-24] MEDS: POTASSIUM CHLORIDE 10 MEQ in NS 1,000 ML IV SCH (11:43)
[2018-07-24] MEDS: HUMALOG SUBQ SCH ×2 (11:44→17:11)
[2018-07-24] MEDS: APRESOLINE PO SCH ×2 (12:01→17:10)
[2018-07-24] MEDS: NEURONTIN PO SCH ×3 (12:08→21:09)
--- NOTE | 2018-07-24 14:07 | Diag Imaging Result Doc PS360 ---
ABDOMEN FLAT/UPRIGHT - 07/24/2018 INDICATION: pain COMPARISON: 06/14/2017 FINDINGS: There is a nonobstructive bowel gas pattern. No free air or abdominal calcifications. Stable surgical clips in the right upper quadrant. IMPRESSION: No acute disease. Electronically signed by Rajat Zamora 07/24/2018 2:05 PM
[2018-07-24] MEDS: BASAGLAR SUBQ SCH ×2 (15:17→23:00)
--- NOTE | 2018-07-24 15:31 | HISTORY AND PHYSICAL ---
CHIEF COMPLAINT: Uncontrolled diabetes mellitus, uncontrolled blood sugar. Ms Gamble, 58-year-old white female patient, known case of diabetes mellitus poorly controlled partially due to noncompliance to medication, also the diet plus her multiple medical problems. The patient claimed lately her blood sugar is staying more than 350 to 400. Yesterday her blood sugar was around 500. The patient claims she was taking her insulin regularly. She was watching her diet. Sometimes she was not even eating and her blood sugar was staying high. She came to the emergency room. Evaluated by ER physician. The patient stayed in the ER till yesterday morning 11 o'clock. The patient was given option of being admitted versus outpatient treatment. The patient claims she may not be that sick and she decided to go home. After going home she checked her sugar and it was staying very high. The patient was concerned and she came back to the emergency room. The patient claims she had chest congestion, cough with sputum production. No high-grade fever. She did have some chills. Does have dull headache. No nausea or vomiting. Oral intake was fair. Patient does have COPD, chronic cough, no hemoptysis. Patient quit smoking last many months. Unquantified weight gain. She denied any diarrhea, blood or mucus in the stool. She did have polyuria, polydipsia but no dysuria or hematuria. No vaginal discharge. No symptoms suggestive of perirectal abscess, skin infection. Patient does feel depressed, worrying about her health. No heat or cold intolerance. No suicidal or homicidal ideation. The patient does have arthritic pain in the knee, at times in the hip joint and the back for which patient is on Ultracet. ALLERGIES: Latex. PAST MEDICAL HISTORY: Significant for COPD, coronary artery disease, pulmonary hypertension, hypertension, hyperlipidemia, congestive heart failure, sleep apnea, chronic respiratory failure, gastritis and reflux disease. Patient had uterine cancer, chronic kidney disease, anxiety and bipolar disorder. PAST SURGICAL HISTORY: Appendectomy, cholecystectomy, patient had cardiac stent, hysterectomy, tonsillectomy. FAMILY HISTORY: Noncontributory. REVIEW OF SYSTEMS: As per HPI. MEDICATIONS: Include Lamictal, Toprol, risperidone, Effexor, Neurontin, MiraLAX, Lantus, Humalog, Lipitor, hydralazine, isosorbide dinitrate, Ultracet, aspirin, Ambien, nebulizer treatment, Symbicort and Demodex. PHYSICAL EXAMINATION: GENERAL: Middle-aged white female patient in mild distress. The patient is morbidly obese. VITAL SIGNS: Blood pressure 184/67, pulse 90, respiration 18, temperature 97 degrees, O2 saturation was 94% on 3 L. SKIN: Dry turgor. HEENT: Head atraumatic, normocephalic. [place] conjunctivae. Anicteric sclerae. Extraocular muscle movement normal. Fundus cannot be penetrated. Good oral hygiene. No tonsillopharyngeal congestion or exudate. Ears and nose benign. NECK: Supple. No JVD, thyromegaly or lymphadenopathy. CHEST: Bilateral good air entry present. No rales. Bibasilar crepitations. Bilateral expiratory wheezing. CARDIOVASCULAR: S1 and S2 heard. No gallop or thrill. A 2/6 systolic murmur at the apex. ABDOMEN: Soft, globular. Bowel sounds present. No organomegaly or mass. EXTREMITIES: No cyanosis, clubbing. Minimal swelling both the legs. Crepitation both the knee joints. MODEL MAKER SCALE: Alert, awake, able to move all 4 limbs. Answering questions fairly well. MUSCULOSKELETAL: Vague tenderness lumbosacral spine. CONSIDERATION: 1. Uncontrolled diabetes mellitus. 2. Chronic respiratory failure. 3. Acute kidney injury. 4. Acute asthmatic bronchitis. 5. Pulmonary hypertension. 6. Diabetes mellitus. 7. Bipolar disorder. 8. Morbid obesity. 9. Patient blood sugar not responding to outpatient treatment. We decided to admit the patient for further care. PLAN: Admit patient, gentle hydration, increase Lantus, proper diet. Monitor Accu-Chek. Continue insulin. Overall plan discussed at length with the patient and she is in agreement. Patient also had evidence of bronchitis and I added Rocephin. cc: Haile Tovar MD
[2018-07-24] MEDS ORDERED: PNEUMOVAX 23 IM ONE (15:45)
[2018-07-24] MEDS: SYMBICORT 80/4.5 MICROGM INHALER INH SCH (19:55)
[2018-07-24] MEDS: RISPERDAL PO SCH (21:11)
[2018-07-24] MEDS: LIPITOR PO SCH (21:11)
[2018-07-24] MEDS ORDERED: INSULIN PEN NEEDLES ONE (22:59)
[2018-07-25] MEDS: DUONEB (A & A) INH SCH ×6 (00:09→23:59)
[2018-07-25] MEDS: ULTRACET 37.5MG/325MG PO PRN ×3 (01:23→23:43)
[2018-07-25 06:46] LABS: BASO# 0.02 X1000 (0.0-0.2); BASO% 0.3 % (0.0-0.8); EOS# 0.65 X1000 (0.0-0.7); EOS% 8.5 % (0.0-10.0); HEMOGLOBIN 10.1 g/dL (12.0-16.0); IMM GRAN# 0.04 X1000 (0.0-0.04); IMM GRAN% 0.5 % (0.0-0.5); LYMPH% 11.7 % (20.5-51.1); MCH 29.5 PG (27-31); MCHC 30.6 g/dL (33-37); MCV 96.5 FL (81-99); MONO# 0.67 X1000 (0.11-0.59); MONO% 8.7 % (1.7-9.3); MPV 9.8 FL (7.4-10.4); NEUT# 5.38 X1000 (1.4-6.5); NEUT% 70.3 % (42.2-75.2); PLT 195 X1000 (130-400); RBC 3.42 XMIL (4.2-5.4); RDW 17.4 % (11.5-14.5); WBC 7.66 X1000 (4.8-10.8)
[2018-07-25 07:14] LABS: ALB/GLOB RATIO 1.1; ALBUMIN 3.8 g/dL (3.5-5.0); CALCIUM 8.4 mg/dL (8.8-10.2); CREATININE 1.4 mg/dL (0.5-0.9); MAGNESIUM 1.7 mg/dL (1.5-2.7); POTASSIUM 3.9 mmol/L (3.5-5.1); TOTAL BILIRUBIN 0.3 mg/dL (0.20-1.00); TOTAL PROTEIN 7.4 g/dL (6.3-8.3)
[2018-07-25 07:23] LABS: FREE T4 1.25 ng/dL (0.93-1.70); TSH 2.36 uIUmL (0.27-4.20)
[2018-07-25] MEDS: POTASSIUM CHLORIDE 10 MEQ in NS 1,000 ML IV SCH ×2 (08:16→09:24)
[2018-07-25] MEDS: SYMBICORT 80/4.5 MICROGM INHALER INH SCH ×2 (08:35→19:15)
[2018-07-25] MEDS: APRESOLINE PO SCH ×3 (09:26→16:16)
[2018-07-25] MEDS: NEURONTIN PO SCH ×3 (09:27→21:03)
[2018-07-25] MEDS: TOPROL XL PO SCH ×2 (09:27→21:03)
[2018-07-25] MEDS: DEMADEX PO SCH ×2 (09:28→16:16)
[2018-07-25] MEDS: ISORDIL PO SCH ×3 (09:30→16:15)
[2018-07-25] MEDS: LAMICTAL PO SCH ×2 (09:31→21:01)
[2018-07-25] MEDS: EFFEXOR XR PO SCH (09:33)
[2018-07-25] MEDS: HUMALOG SUBQ SCH ×3 (09:34→16:08)
[2018-07-25] MEDS: LOVENOX SUBQ SCH (09:34)
[2018-07-25] MEDS: ASPIRIN PO SCH (09:34)
[2018-07-25] MEDS: ROCEPHIN 1 GM in NS 50 ML IV SCH (09:34)
[2018-07-25] MEDS: BASAGLAR SUBQ SCH ×2 (09:49→21:08)
--- NOTE | 2018-07-25 11:16 | PROGRESS NOTE ---
DATE: 07/25/2018 OBJECTIVE: Vital signs: Stable with temperature 97.7 degrees, heart rate 78, respirations 16, blood pressure 149/65, O2 saturation 99% on 3 L nasal oxygen. The patient is a 58-year-old white female who has been having difficulty controlling her blood sugar recently despite taking insulin. She was admitted for further evaluation. There is history of sleep apnea, obesity, hypertension, COPD, pulmonary hypertension, hyperlipidemia, congestive heart failure. Chest x-ray was clear and abdominal films showed no evidence of obstruction. White blood count has been normal and urine was normal with no evidence of infection for etiology of hyperglycemia. She is currently on 60 units of Lantus b.i.d. and 23 units of Humalog with each meal. Sugar this morning was 323. PLAN: Increase Lantus to 70 units b.i.d. cc: MD Haile Marcum MD
[2018-07-25] MEDS: RISPERDAL PO SCH (21:01)
[2018-07-25] MEDS: LIPITOR PO SCH (21:04)
[2018-07-26] MEDS: POTASSIUM CHLORIDE 10 MEQ in NS 1,000 ML IV SCH ×2 (05:24→06:34)
--- NOTE | 2018-07-26 07:03 | PROGRESS NOTE ---
DATE: 07/26/2018 SUBJECTIVE: Ms. Gamble is feeling better. Her chest congestion, cough, and symptoms of sinus infection are improving. She denied any nausea or vomiting. No dysuria or hematuria. Her Accu- Chek reading improving some. No diarrhea, blood or mucus in the stool. Past medical history and medications noted. The patient was admitted with uncontrolled diabetes mellitus. OBJECTIVE: Vital Signs: Blood pressure 130/71, pulse 79, respirations 24, temperature 98.1 degrees. Skin: No rash. Neck: Supple. No JVD. Lungs: Bilateral good air entry present. Wheezing improved. Abdomen: Soft, globular. Bowel sounds present. Extremities: No cyanosis, clubbing. No acute DVT. INSERT OPERATOR: Alert, awake. Able to move all 4 limbs. CONSIDERATION: 1. Patient admitted with uncontrolled diabetes mellitus. Her Lantus increased to 70 units subcutaneous twice a day. Patient is on Humalog which I am going to increase to 28 units 3 times a day before each meal. We will monitor her Accu-Chek. Encourage proper diet. I already referred her to full stack developer. 2. Her other problems include chronic respiratory failure, pulmonary hypertension, hyperlipidemia, mood disorder. The patient does have chronic kidney disease, not a candidate for metformin with her history of pancreatitis. I cannot add any GLP 1 and she does have a history of vaginal yeast infection off and on which prevented me from adding SGLT type medication. I did check her cortisol level which was not significantly elevated. We will continue current treatment. Her other problems include acute bronchitis and sinusitis. PLAN: Overall plan discussed with the patient and she is in agreement. cc: Haile Tovar MD
[2018-07-26] MEDS: DUONEB (A & A) INH SCH ×5 (08:00→22:50)
[2018-07-26] MEDS: SYMBICORT 80/4.5 MICROGM INHALER INH SCH ×2 (08:02→19:28)
[2018-07-26] MEDS: HUMALOG SUBQ SCH ×3 (08:09→16:23)
[2018-07-26] MEDS: ASPIRIN PO SCH (09:08)
[2018-07-26] MEDS: EFFEXOR XR PO SCH (09:09)
[2018-07-26] MEDS: NEURONTIN PO SCH ×3 (09:09→20:51)
[2018-07-26] MEDS: LAMICTAL PO SCH ×2 (09:09→20:50)
[2018-07-26] MEDS: DEMADEX PO SCH ×2 (09:09→20:51)
[2018-07-26] MEDS: APRESOLINE PO SCH ×3 (09:09→16:11)
[2018-07-26] MEDS: ISORDIL PO SCH ×3 (09:10→16:11)
[2018-07-26] MEDS: ROCEPHIN 1 GM in NS 50 ML IV SCH (09:10)
[2018-07-26] MEDS: TOPROL XL PO SCH ×2 (09:10→20:53)
[2018-07-26] MEDS: BASAGLAR SUBQ SCH ×2 (09:11→20:53)
[2018-07-26] MEDS: LOVENOX SUBQ SCH (09:11)
[2018-07-26] MEDS: ULTRACET 37.5MG/325MG PO PRN ×2 (11:49→23:42)
[2018-07-26] MEDS: RISPERDAL PO SCH (20:51)
[2018-07-26] MEDS: LIPITOR PO SCH (20:51)
[2018-07-26] MEDS ORDERED: INSULIN PEN NEEDLES ONE (22:11)
--- NOTE | 2018-07-27 06:32 | DISCHARGE SUMMARY ---
ADMISSION DATE: 07/24/2018 DISCHARGE DATE: FINAL DISCHARGE DIAGNOSES: 1. Uncontrolled diabetes mellitus. 2. Acute bronchitis. 3. Chronic respiratory failure. 4. Acute on chronic kidney disease. 5. Pulmonary hypertension. 6. Bipolar disorder. 7. Morbid obesity. 8. Osteoarthritis. 9. Low back pain. 10. Hyperlipidemia. 11. Gastritis. 12. Reflux disease. HOSPITAL COURSE: Ms. Gamble, a 58-year-old female, patient lately not doing well. Her blood pressure was staying high. The patient claims she was trying to be compliant to medication and diet. Still her blood sugar was staying more than 500, at times 600. She did not have any evidence of ketoacidosis. Patient was concerned. Elevated blood sugar making her nervous and anxious. She had 2 ER visits. She also had a history suggestive of acute bronchitis and sinus infection. Patient is not a candidate for metformin, SGLT, or Januvia, or GLP 1 because of her history of pancreatitis, vaginal yeast infection, and chronic kidney disease. Patient admitted, hydrated gently. Started on antibiotics for bronchitis. We gradually advanced her insulin. The patient is doing much better. Her blood sugar improved. Clinically, she is feeling better. No fever or chills. No major hypoglycemic episode. I had lengthy discussion with the patient about hypoglycemia signs, symptoms, and what to do. The patient understood and agreed. Also, discussed about hyperglycemia and precaution. Overall, patient received maximum benefit of hospitalization. She agreed to do proper diet. I already referred her to food preparation supervisor, waiting for appointment. Follow up with me in 2 weeks. Continue home medicine. I increased her Lantus 70 units twice a day, and Humalog 28 units 3 times a day. OBJECTIVE: Vital Signs: Noted which is stable. Neck: Supple. No JVD. Lungs: Bilateral good air entry present. Cardiovascular: S1 and S2 heard. Abdomen: Soft, globular. Bowel sounds present. QUALITY ASSURANCE CLERK: Alert, awake, able to move all 4 limbs. Minimal leg swelling. No acute DVT. The patient will continue her Trilogy for chronic respiratory failure. OVERALL DISCHARGE CONDITION: Satisfactory. DISCHARGE INSTRUCTIONS: She will follow a strict diet, monitor Accu-Chek, keep record of it in case of more distress. Call us back or go to emergency room. cc: Haile Tovar MD
[2018-07-27] MEDS ORDERED: ROCEPHIN IM ONE (07:36)
[2018-07-27] MEDS ORDERED: XYLOCAINE-MPF 1% INJ ONE (07:36)
[2018-07-27 07:43] VITALS: BP 145/71
[2018-07-27] MEDS: DUONEB (A & A) INH SCH (07:55)
[2018-07-27] MEDS: DEMADEX PO SCH (08:01)
[2018-07-27] MEDS: ISORDIL PO SCH (08:01)
[2018-07-27] MEDS: LOVENOX SUBQ SCH (08:01)
[2018-07-27] MEDS: ASPIRIN PO SCH (08:02)
[2018-07-27] MEDS: NEURONTIN PO SCH (08:02)
[2018-07-27] MEDS: TOPROL XL PO SCH (08:02)
[2018-07-27] MEDS: BASAGLAR SUBQ SCH (08:03)
[2018-07-27] MEDS: HUMALOG SUBQ SCH (08:04)
[2018-07-27] MEDS: ULTRACET 37.5MG/325MG PO PRN (08:10)
[2018-07-27] MEDS: EFFEXOR XR PO SCH (08:12)
[2018-07-27] MEDS: APRESOLINE PO SCH (08:22)
[2018-07-27] MEDS: LAMICTAL PO SCH (08:22)
== END 2018-07-27 09:09 | disposition home health service (06) | DRG 638 ==
LOC: ED 03:22 → 4N 08:52
PROVIDERS: ADMIT Internal Medicine; ATTEND Internal Medicine
CPT/HCPCS: 71010; 71045; 74019; 74020; 80048; 80053; 81001; 82140; 82533; 82805; 82948; 83605; 83735; 83880; 84439; 84443; 84484; 85025; 87040; 90732; 94640; 94660; 94761; 96360; 96361; 99283; 99285; A9270; J0696; J1650; J1815; J3480; J7030; XXXXX

== ENCOUNTER 2019-04-04 12:25 | Inpatient (IN) ==
--- NOTE | 2019-04-04 14:05 | PROVIDER DOCUMENTATION ---
HPI-General Adult - General Chief Complaint: Altered Mental Status Stated Complaint: Possible OD Time Seen by Provider: 04/04/19 14:04 Source: patient, family, RN/MD Unable to obtain history due to:: altered Allergies/Adverse Reactions: Patient Allergies Allergy/AdvReac Type Severity Reaction Status Date / Time latex Allergy Intermediate RASH Verified 03/12/19 05:45 Home Medications: Home Medication List Medication Instructions Recorded Confirmed Last Taken Type Lamotrigine [Lamictal] 150 mg PO BID 04/10/12 04/04/19 07/02/18 History Metoprolol Succinate E.r. [Toprol 50 mg PO BID 04/10/12 04/04/19 07/02/18 History Xl] Risperidone [Risperdal] 3 mg PO HS 04/10/12 04/04/19 07/01/18 History Venlafaxine E.r. [Effexor Xr] 150 mg PO DAILY #0 05/10/13 04/04/19 07/02/18 History Gabapentin 300 mg PO TID 06/14/17 04/04/19 07/02/18 History Atorvastatin Calcium [Lipitor] 80 mg PO HS 12/07/17 04/04/19 06/02/18 History Isosorbide Dinitrate 20 mg PO TID 01/23/18 04/04/19 07/02/18 History Aspirin 81 mg PO DAILY 02/24/18 04/04/19 07/01/18 History Budesonide/Formoterol Inhaler 2 puff INH RTBID inhaler 04/05/18 04/04/19 07/02/18 Rx [Symbicort 80/4.5 Microgm Inhaler] Oxycodone/APAP 5 mg/325 mg 1 ea PO Q6H PRN PRN tab 12/28/18 04/04/19 Unknown Rx [Percocet-5] Torsemide [Demadex] 75 mg PO BID #0 12/28/18 04/04/19 Unknown Rx Insulin Glargine [Lantus Insulin] 60 unit SUBQ BID 03/08/19 04/04/19 Unknown History Potassium Chloride E.r. [Klor-Con] 30 ml PO DAILY 03/08/19 04/04/19 Unknown History Venlafaxine E.r. [Effexor Xr] 75 mg PO QHS 03/08/19 04/04/19 Unknown History Amiodarone [Cordarone] 200 mg PO BID 04/04/19 04/04/19 Unknown History Chlorthalidone 25 mg PO DAILY 04/04/19 04/04/19 Unknown History Insulin Lispro [Humalog] 38 unit SQ TID 04/04/19 04/04/19 Unknown History - History of Present Illness -Gen Adult Nature of Presenting Problems: This is a 58yo female who presents with daughter via EMS for CC of altered mental status. The family reports that starting yesterday the patient was not herself. They report that she was repeating her speech and they were having a difficult time waking her up. The patient is chronically on 3L of O2 at home but was reportedly sating at 88% at home. The family reports that the patient has had some generalized pain as well as some shortness of breath and did have a fall, and the family struggled to get her up. At baseline the patient has not been able to walk around for some time, and she is helped at home by daughter and live in [facility]. The patient is currently able to converse and is oriented to person and place but not month. The patient reports that she was brought here because her family was concerned she was not acting right. The patients speech is pressure and she does appear somulent. Review of Systems - Adult - REVIEW OF SYSTEMS - ADULT ROS:: ROS per family (some reports by patient) Constitutional: reports: fever Eyes: reports: no symptoms reported. denies: eye pain Ears, Nose, Mouth & Throat: reports: no symptoms reported. denies: throat pain Cardiovascular: reports: no symptoms reported. denies: chest pain Respiratory: reports: shortness of breath Gastrointestinal: reports: no symptoms reported, nausea, vomiting. denies: abdominal pain, diarrhea Genitourinary: reports: no symptoms reported. denies: frequency Musculoskeletal: reports: other (extremity pain) Integumentary: reports: other (skin sores chronic on LE) Neurological: reports: other (altered mentation and abnormal speach) Psychiatric: reports: emotional problems (bipolar disorder) Endocrine: reports: no symptoms reported Hematologic/Lymphatic: reports: other (no bleeding) Allergic/Immunologic: reports: no symptoms reported, other (no swelling) Past History - Adult - PAST MEDICAL HISTORY-ADULT Review of Records: reports: Old Records Reviewed Major Childhood Illnesses: reports: denies history Cardiovascular: reports: CAD, CHF, HTN, hyperlipidemia, MS, other (mitral stenosis) Respiratory: reports: COPD, lung disease, sleep apnea Gastrointestinal: reports: GERD, IBS, liver disease, pancreatitis, other (hiatal hernia) Obstetrical/Gynecological: reports: uterine/ovarian cancer (uterine) Genitourinary: reports: kidney disease Musculoskeletal: reports: denies history Neurological: reports: denies history Psychiatric: reports: anxiety, bipolar Endocrine/Immune: reports: Diabetes Other Conditions: reports: denies history - PRIOR SURGERIES/PROCEDURES Surgical/Procedure History: reports: appendectomy, cholecystectomy, cardiac stent (LAD), hysterectomy, tonsillectomy, other (facial reconstruction) - PRIOR HOSPITALIZATIONS Prior Hospitalizations: reports: for similar symptoms - IMMUNIZATION STATUS Childhood Immunizations: See Nurse Assessment Flu Vaccine: See Nurse Assessment - FAMILY HISTORY Family History: reviewed, not pertinent - SOCIAL HISTORY Smoking: denies Substance Use: none/never Alcohol Use Frequency: never Physical Exam-General - PHYSICAL EXAM-ADULT Initial Vital Signs Reviewed: Yes - CONSTITUTIONAL General Appearance: obese, lethargic, slow to respond - EYES Eyes: PERRL/EOMI. negative: conjuctival exudate, scleral icterus - HEAD, EARS, NOSE, MOUTH & THROAT HENMT: normocephalic/atraumatic. negative: moist mucous membranes (dry mucous membranes) - RESPIRATORY Respiratory: decreased breath sounds, rales (RLL). negative: respiratory distress - CARDIOVASCULAR Cardiovascular: regular rate, rhythm. negative: no edema (1+ LE edema) - GASTROINTESTINAL (ABDOMEN) Abdominal Exam: soft, tenderness (sub umbilical, no other tenderness). negative: guarding, rebound - MUSCULOSKELETAL Extremity: other (1+ LE edema) - SKIN Integumentary: other (3 superfical skin ulcerations noted in the LE. 2 noted on the right 1 noted on the left. Some purulence and surrounding erythema noted around wounds) - NEUROLOGIC Neurologic: other (Slight asymtry of the right face with smile testing, other CN appear intact and some weakness in the right LE which is reported chronic. Difficulty with neuro exam as patient did struggle to follow commands and patient also has chronic neuropathy. EOMI. 5/5 strength in UE.). negative: EOM palsy - PSYCHIATRIC Psych/Mental Status: other (blunted affect and somulent). negative: oriented x 3 (oriented to person and place, not time) Progress - PLAN OF CARE/RESULTS Progress/Plan/Lab Results: Vital Signs - 8 hr 04/04/19 12:47 Temperature 99.0 F Pulse Rate 70 Respiratory Rate 20 Blood Pressure 121/74 O2 Sat by Pulse Oximetry 96 58yo female with complex PMH including DM, bipolar, chronic pain, and liver and kidney disease present with family and EMS with CC of altered mental status. The patient currently is conversant, but slowed. Differential remains broad including UTI, Metabolic disorder, hypercapnea, and UTI/infection. The patient is currently hemodynamically stable and exam does show some concern for volume overload, extremity weakness and encephalopathy. Will obtain broad spectrum work up including CT Head, CXR, CMP/CBC/BNP, Tropo pratik, EKG, Lactate, UA, and TSH. We will continue to monitor closely. Result Diagrams: 04/04/19 15:03 04/04/19 15:03 - EKG 1 EKG Read and Signed by:: Enrrique Adamson (Originally signed by Dr. Hendrickson [id number]) EKG Interpretation (*Must complete 3 of following elements*): Abnormal Rate: 91 Rhythm: Atrial Fibrillation [place]: normal QRS: normal ST Wave: normal Comments: Atrial Fibrillation without injury current Departure - Departure Date of Disposition Decision: 04/04/19 Time of Disposition Decision: 19:09 DIAGNOSIS: BO (acute kidney injury) Altered mental state Qualifiers: Altered mental status type: unspecified Qualified Code(s): R41.82 - Altered mental status, unspecified UTI (urinary tract infection) Qualifiers: Urinary tract infection type: acute cystitis Hematuria presence: with hematuria Qualified Code(s): N30.01 - Acute cystitis with hematuria Cellulitis Qualifiers: Site of cellulitis: extremity Site of cellulitis of extremity: lower extremity Laterality: unspecified laterality Qualified Code(s): L03.119 - Cellulitis of unspecified part of limb Disposition: ADMITTED INPATIENT 09 Certified Medical Emergency: Emergent Condition: Fair Referrals and Follow-Ups: Haile Tovar MD [Primary Care Provider] - - Critical Care Note This patient required my direct & personal management of CC.: No Attestation - Physician/ JAVIER Attestation Patient care was provided by Advanced Practice Provider:: No The physician spent face to face time with patient:: Yes Advanced Practice Provider documentation review:: Supervising physician onsite and consulted in the evaluation and care of this patient. The physician did have a face to face encounter with the patient.
--- NOTE | 2019-04-04 14:55 | EKG Report ---
Test Performed on : 04/04/2019 1:02:01 PM Test Reason : CP Blood Pressure : / mmHG Vent. Rate : 072 BPM Atrial Rate : 072 BPM P-R Int : 198 ms QRS Dur : 084 ms QT Int : 438 ms P-R-T Axes : 068 097 071 degrees QTc Int : 479 ms Normal sinus rhythm. Rightward axis Low voltage QRS Septal infarct (cited on or before 06-NOV-2017) Abnormal ECG When compared with ECG of 12-MAR-2019 03:52, (Unconfirmed) No significant change was found Unconfirmed Result
--- NOTE | 2019-04-04 15:11 | Diag Imaging Result Doc PS360 ---
EXAM: CHEST-PORTABLE HISTORY: Altered mental status and shortness of breath TECHNIQUE: Chest single view COMPARISON: 03/12/2019 FINDINGS: The lungs are well expanded. The heart is mildly prominent. The vessels are mildly distended. There are no infiltrates. No effusion identified. IMPRESSION: Mild cardiomegaly with mild pulmonary edema Electronically signed by Davin Barragan 04/04/2019 3:09 PM
[2019-04-04 15:14] LABS: URINE SOURCE CATH
--- NOTE | 2019-04-04 15:26 | Diag Imaging Result Doc PS360 ---
EXAM: CT HEAD W/O CONTRAST 04/04/2019 HISTORY: Alterted Mental status TECHNIQUE: This exam was performed using automated exposure control, adjustment of mA or kV according to patient size, and/or use of iterative reconstruction technique. COMMENT: There is no evidence of mass effect, bleed, or abnormal extra-axial fluid collection. There is some periventricular lucency in the frontal white matter bilaterally. Compared to 08/15/2016 this may be slightly worse but otherwise are has been no significant change in the appearance of the brain. IMPRESSION: Chronic microvascular white matter change. No evidence of acute disease. Electronically signed by Chester Dozier 04/04/2019 3:23 PM
[2019-04-04 15:32] LABS: INR 1.61; PROTIME 19.5 Seconds (11.0-16.0)
[2019-04-04 15:33] LABS: PTT 38.6 Seconds (22.3-41.8)
[2019-04-04 15:37] LABS: UR AMPHETAMINES QUAL NONE DETECTED (NONE DETECT); UR BARBITUATES QUAL NONE DETECTED (NONE DETECT); UR BENZODIAZEPIN QUAL NONE DETECTED (NONE DETECT); UR CANNABINOIDS QUAL NONE DETECTED (NONE DETECT); UR COCAINE QUAL NONE DETECTED (NONE DETECT); UR METHADONE QUAL NONE DETECTED (NONE DETECT); UR OPIATES QUAL NONE DETECTED (NONE DETECT); UR OXYCODONE QUAL PRESUMPTIVE POSITIVE (NONE DETECT); UR PCP QUAL NONE DETECTED (NONE DETECT)
[2019-04-04 15:37] LABS: ALLEN TEST YES; BE 23.5 mmoll (-3.0-3.0); BLOOD TYPE ARTERIAL; HCO3-(ACT) 43.2 mmoll (20.0-26.0); METHB 1.4 % (0.0-1.5); O2(CT) 14.5 mL/dL (15.0-23.0); O2HB 95.5 % (95.0-99.0); PO2(98.6) 107 mmHg (60-100); SAMPLE BLOOD; SAO2 98.7 % (95.0-100.0); THB 10.7 g/dL (11.5-17.4); pH(98.6) 7.48 (7.35-7.45)
[2019-04-04 15:39] LABS: BILIRUBIN URINE NEGATIVE (NEGATIVE); BLOOD URINE MODERATE (NEGATIVE); COLOR YELLOW; GLUCOSE URINE NEGATIVE (NEGATIVE); KETONE URINE NEGATIVE (NEGATIVE); LEUKOCYTES URINE LARGE (NEGATIVE); NITRITE URINE POSITIVE (NEGATIVE); PROTEIN URINE TRACE mg/dL (NEGATIVE); SP GRAVITY URINE 1.009; TURBIDITY URINE HAZY (CLEAR); UROBILINOGEN URINE NORMAL (NORMAL)
[2019-04-04 15:40] LABS: MODALITY CANNULA; PCO2(98.6) 68 mmHg (35-45)
[2019-04-04 15:42] LABS: UR EPITHELIAL CELLS <10 /HPF (<10); URINE BACTERIA 1+ /HPF; URINE WBC TNTC /HPF (<10)
[2019-04-04 15:46] LABS: BASO# 0.03 X1000 (0.0-0.2); BASO% 0.4 % (0.0-0.8); EOS# 0.49 X1000 (0.0-0.7); EOS% 5.8 % (0.0-10.0); HEMATOCRIT 34.9 % (37.0-47.0); HEMOGLOBIN 10.1 g/dL (12.0-16.0); IMM GRAN# 0.02 X1000 (0.0-0.04); IMM GRAN% 0.2 % (0.0-0.5); LYMPH# 1.15 X1000 (1.2-3.4); LYMPH% 13.6 % (20.5-51.1); MCHC 28.9 g/dL (33-37); MCV 93.3 FL (81-99); MONO# 0.68 X1000 (0.11-0.59); MPV 8.8 FL (7.4-10.4); PLT 228 X1000 (130-400); RBC 3.74 XMIL (4.2-5.4); RDW 17.3 % (11.5-14.5); WBC 8.47 X1000 (4.8-10.8)
[2019-04-04 16:18] LABS: ALB/GLOB RATIO 1.1; ALBUMIN 4.1 g/dL (3.5-5.0); POTASSIUM 4.2 mmol/L (3.5-5.1); TOTAL BILIRUBIN 0.49 mg/dL (0.20-1.00); TOTAL PROTEIN 7.8 g/dL (6.3-8.3)
[2019-04-04] MEDS ORDERED: NS 500 ML IV ONE (16:22)
[2019-04-04 16:44] LABS: SED RATE 111 mm/hr (0-20)
[2019-04-04] MEDS: ROCEPHIN 1 GM in NS 50 ML IV SCH (18:25)
--- NOTE | 2019-04-04 22:03 | HISTORY AND PHYSICAL ---
CHIEF COMPLAINT: Altered mental status. A 58-year-old white female patient, known case of COPD, cor pulmonale, chronic respiratory failure, not doing well the last 2 days. The patient has excessive somnolence, altered mental status. Patient was brought by family via EMS. They reported patient was repeating her speech and they had difficulty at times waking her up. The patient is chronically on 3 L of oxygen at home but her oxygen saturation was staying low. The patient does have chronic pain for which she is being followed up by pain clinic and patient is taking pain medication. The patient had increasing confusion and disorientation. The patient was brought to the emergency room. Evaluated by ER physician. In the ER the patient found to have UTI. Her troponin was elevated and patient was admitted for further care. The patient denied any typical chest pain. She does have dyspnea on exertion, history of leg swelling. The patient does have chronic cough with scanty sputum production. The patient does have orthopnea. Patient is using BiPAP at home because of her chronic respiratory failure. No hemoptysis. No major weight gain, unquantified weight loss. The patient had nonhealing ulcer on the leg. They are doing wound care. The patient is waiting for appointment with the Wound Clinic. The patient does have chronic back pain, pain in the hip joint and the knee. The patient does have depression and mood disorder. No hallucination. No suicidal or homicidal ideation. Denied major hypoglycemic episode. No dysphagia or odynophagia. No diarrhea, blood or mucus in the stool. No further history available at this time. ALLERGIES: The patient is allergic to Latex. MEDICATIONS: Include amiodarone, chlorthalidone, Humalog, Effexor, potassium, Levemir, Demodex, oxycodone, Symbicort, aspirin, isosorbide dinitrate, Lipitor, Neurontin, Effexor, risperidone, Toprol-XL, Lamictal. PAST MEDICAL HISTORY: Mood disorder, hypertension, depression, peripheral neuropathy, hyperlipidemia, COPD, cor pulmonale, osteoarthritis, diabetes mellitus, paroxysmal atrial fibrillation, congestive heart failure, obesity. Patient had hysterectomy, mitral stenosis. PERSONAL HISTORY: Single. Quit smoking many months ago. Denied alcohol or substance abuse. Needs minimal assistance in activities of daily living. FAMILY HISTORY: Noncontributory. REVIEW OF SYSTEMS: As per HPI. PHYSICAL EXAMINATION: GENERAL: Middle-aged white female patient in no acute distress. VITAL SIGNS: Blood pressure on arrival 163/63, pulse 71, respiration 22, temperature 99 degrees. SKIN: Senile turgor. Head atraumatic, normocephalic. Equality conjunctivae. Anicteric sclerae. Extraocular muscle movement normal. Fundus cannot be penetrated. Good oral hygiene. No tonsillopharyngeal congestion or exudate. Ears and nose benign. NECK: Supple. No JVD, thyromegaly or lymphadenopathy. CHEST: Bibasilar crepitation. No rales. CARDIOVASCULAR: S1 and S2 heard, 2/6 systolic murmur at the apex. No gallop or thrill. ABDOMEN: Soft, globular. Bowel sounds present. EXTREMITIES: No cyanosis, clubbing. Minimal swelling. No acute DVT. The patient does have ulcer right lower leg with some surrounding redness. ASSEMBLER ERECTOR: Alert, awake, able to move all 4 limbs. Patient's problems include altered mental status. Urinalysis did reveal urinary tract infection. Her cardiac isoenzymes minimally elevated, could be due to her chronic kidney disease. Her other problems includes cor pulmonale, chronic obstructive pulmonary disease, morbid obesity, nonhealing ulcer right leg, mood disorder, gastritis and reflux disease. Urinalysis did reveal moderate blood, leukocyte large, too numerous to count WBC. Patient does have chronic low back pain. Urine drug screen was positive for oxycodone. TSH 4.64, proBNP was 351, BUN 87, creatinine was 3, blood gas pH 7.48, pCO2 68, PT/INR 1.61. Patient does have history suggestive of cirrhosis of the liver. PLAN: Admit patient. Close observation. Neuro check. Started her on antibiotics. Monitor Accu- Chek. Continue home medicine. Overall plan discussed with the patient and she is in agreement. cc: Haile Tovar MD
[2019-04-04] MEDS ORDERED: HUMALOG SUBQ ONE (23:01)
[2019-04-04] MEDS ORDERED: LOVENOX SUBQ SCH (23:01)
[2019-04-04] MEDS ORDERED: DEMADEX PO SCH (23:01)
[2019-04-04] MEDS ORDERED: PERCOCET-5 PO PRN (23:01)
[2019-04-04] MEDS ORDERED: DUONEB (A & A) INH ONE (23:01)
[2019-04-04] MEDS: EFFEXOR XR PO SCH (23:29)
[2019-04-04] MEDS: RISPERDAL PO SCH (23:29)
[2019-04-04] MEDS: TOPROL XL PO SCH (23:30)
[2019-04-04] MEDS: CORDARONE PO SCH (23:30)
[2019-04-04] MEDS: LANTUS INSULIN SUBQ SCH (23:30)
[2019-04-04] MEDS: LIPITOR PO SCH (23:33)
[2019-04-04] MEDS: LAMICTAL PO SCH (23:33)
[2019-04-04] MEDS: SYMBICORT 80/4.5 MICROGM INHALER INH SCH (23:50)
[2019-04-05 04:46] LABS: BE 24.6 mmoll (-3.0-3.0); BLOOD TYPE ARTERIAL; METHB 1.2 % (0.0-1.5); O2(CT) 13.4 mL/dL (15.0-23.0); O2HB 91.2 % (95.0-99.0); PO2(98.6) 60 mmHg (60-100); SAMPLE BLOOD; SRATE 5 BPM; THB 10.4 g/dL (11.5-17.4); TVOL 500 mL; pH(98.6) 7.51 (7.35-7.45)
[2019-04-05 04:48] LABS: ALLEN TEST YES; MODALITY BI PAP
[2019-04-05 04:51] LABS: PCO2(98.6) 64 mmHg (35-45)
[2019-04-05 07:06] LABS: BASO# 0.03 X1000 (0.0-0.2); BASO% 0.3 % (0.0-0.8); EOS# 0.44 X1000 (0.0-0.7); EOS% 5.1 % (0.0-10.0); IMM GRAN# 0.02 X1000 (0.0-0.04); IMM GRAN% 0.2 % (0.0-0.5); LYMPH# 1.09 X1000 (1.2-3.4); LYMPH% 12.6 % (20.5-51.1); MCHC 28.6 g/dL (33-37); MCV 94.3 FL (81-99); MONO# 0.83 X1000 (0.11-0.59); MONO% 9.6 % (1.7-9.3); MPV 8.9 FL (7.4-10.4); NEUT# 6.21 X1000 (1.4-6.5); NEUT% 72.2 % (42.2-75.2); PLT 203 X1000 (130-400); RBC 3.71 XMIL (4.2-5.4); RDW 17.2 % (11.5-14.5); WBC 8.62 X1000 (4.8-10.8)
--- NOTE | 2019-04-05 07:08 | PROGRESS NOTE ---
DATE: 04/05/2019 SUBJECTIVE: Ms. Gamble is going fair. She denied any chest pain or shortness of breath. The patient is on BiPAP. No nausea or vomiting. No high-grade fever or chills. Her vital Signs is satisfactory. Patient admitted with altered mental status. Found to have a UTI. OBJECTIVE: Vital Signs: Noted. Neck: Supple. No JVD. Lungs: Bibasilar crepitations. Heart: S1 and S2 heard. Abdomen: Soft, globular. Bowel sounds present. Extremities: Patient have ulcer right leg. 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 LABORATORY DATA: Done yesterday noted. Blood gas done today, pH 7.51, pCO2 64, pO2 was 60. Overall patient is doing better. We will continue current treatment. PROBLEM LIST: 1. Chronic hypoxemic and hypercarbic respiratory failure. 2. Cor pulmonale. 3. Chronic kidney disease. 4. Bipolar disorder. 5. Morbid obesity. 6. Urinary tract infection. 7. Nonhealing ulcer right leg. PLAN: We will continue current treatment. I did ask wound care nurse to evaluate the patient. After reviewing labs, we will make necessary recommendations. cc: Haile Tovar MD
[2019-04-05 07:26] LABS: HEMOGLOBIN A1C 6.1 % (4.8-6.0)
[2019-04-05 07:42] LABS: ALBUMIN 3.7 g/dL (3.5-5.0); CALCIUM 9.8 mg/dL (8.8-10.2); CREATININE 2.5 mg/dL (0.5-0.9); MAGNESIUM 2.5 mg/dL (1.5-2.7); PHOSPHORUS 3.8 mg/dL (2.7-4.5); POTASSIUM 3.2 mmol/L (3.5-5.1); TOTAL BILIRUBIN 0.48 mg/dL (0.20-1.00); TOTAL PROTEIN 7.5 g/dL (6.3-8.3)
[2019-04-05] MEDS: SYMBICORT 80/4.5 MICROGM INHALER INH SCH ×2 (08:43→20:15)
[2019-04-05] MEDS: KLOR-CON PO SCH (09:56)
[2019-04-05] MEDS: TOPROL XL PO SCH ×2 (09:56→22:54)
[2019-04-05] MEDS: CORDARONE PO SCH ×2 (09:56→22:53)
[2019-04-05] MEDS: HUMALOG SUBQ SCH ×3 (09:56→16:47)
[2019-04-05] MEDS: ISORDIL PO SCH ×3 (09:56→16:47)
[2019-04-05] MEDS: PATIENT'S OWN MED PO SCH ×2 (09:57→22:57)
[2019-04-05] MEDS: ASPIRIN PO SCH (09:57)
[2019-04-05] MEDS: LANTUS INSULIN SUBQ SCH (09:57)
[2019-04-05] MEDS: LAMICTAL PO SCH ×2 (09:57→22:53)
--- NOTE | 2019-04-05 10:50 | EKG Report ---
Test Performed on : 04/05/2019 10:23:39 AM Test Reason : elevated troponins Blood Pressure : / mmHG Vent. Rate : 064 BPM Atrial Rate : 064 BPM P-R Int : 208 ms QRS Dur : 088 ms QT Int : 482 ms P-R-T Axes : 076 098 080 degrees QTc Int : 497 ms Normal sinus rhythm. Rightward axis Septal infarct (cited on or before 06-NOV-2017) Abnormal ECG When compared with ECG of 04-APR-2019 13:02, (Unconfirmed) No significant change was found Confirmed by Juan Leone MD ([id number]) on 04/05/2019 1:27:18 PM
[2019-04-05] MEDS: ELIQUIS PO SCH ×2 (12:01→22:54)
--- NOTE | 2019-04-05 12:02 | CARDIOLOGY CONSULTATION ---
DATE: 04/05/2019 CHIEF COMPLAINT: Altered mental status. HISTORY OF PRESENT ILLNESS: Ms. 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 Most recently seen at [facility] earlier this month. She apparently had a cardioversion in late February with subsequent amiodarone. She presented for complaints of around 1 week of just not feeling well, which she says somewhat disconnected and confused. She has had some lower extremity weakness but overall denies any shortness of breath or chest pain. She reports some frequency in urination but no dysuria. She says low-grade fevers have been happening at home as well but she denies knowing any accurate temperatures. She has not had any nausea or vomiting. PAST MEDICAL HISTORY: 1. Significant for coronary artery disease. Her last cardiac catheterization was in 2016, that shows essentially normal coronaries with the exception of a stent within the proximal LAD that was patent and free of any obstruction. 2. 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 3. History of atrial flutter, status post cardioversion in February of 2019. 4. Myasthenia gravis. 5. Mitral stenosis/moderate mitral regurgitation. 6. Obstructive sleep apnea. 7. Diabetes. 8. Hypertension. 9. Hyperlipidemia. 10. Osteoarthritis. 11. Gout. 12. Diverticulitis. 13. COPD. 14. Morbid obesity. SOCIAL HISTORY: She does not currently smoke. She is single, lives with a roommate. FAMILY HISTORY: Significant for hypertension. REVIEW OF SYSTEMS: A 10 system review of systems is negative except for those things mentioned in the HPI. PHYSICAL EXAMINATION: Vital Signs: The patient is afebrile. Heart rate 61, blood pressure 154/57. General: She is in no acute distress. HEENT: Oropharynx is moist. Normal dentition. Eye examination shows pink conjunctivae and white sclerae. Neck: Examination shows no obvious thyromegaly or thyroid tenderness. Cardiovascular: She sounds to be in a regular rate and rhythm. I do not hear any obvious murmurs. She has somewhat distant heart sounds. She has no lower extremity edema. Chest: Clear bilaterally. She has no increased work of breathing. Abdomen: Soft, nontender. Skin Examination: Warm and dry throughout. She has some healing wounds to her left anterior glez. They appear to be epithelialized completely but still in the healing process. Psychiatric: She seems oriented. A little bit groggy but able to answer all questions appropriately. Neurological: She is moving all extremities well. She has no lateralizing deficits. PERTINENT DATA: She had an EKG performed on the at 1302 that shows sinus rhythm, no ischemic changes. Essentially normal EKG. Subsequent EKG was performed at 1023 on the that shows sinus rhythm, first-degree AV block. No acute ischemic changes. She had a head CT that was unremarkable except for some chronic microvascular changes. Her chest x-ray demonstrated mild cardiomegaly with pulmonary edema. Her lab data shows a white count of 8.6, hematocrit 35, platelet count 203,000. Sodium 140, potassium is 3.2, BUN 80, creatinine 2.5. Her urinalysis was too numerous to count WBCs, 1+ bacteria, positive nitrite. She had a urine Gram stain that was positive for gram-negative rods. Laboratory data continued shows her troponin was elevated at 0.106 with a subsequent of 0.105. ASSESSMENT: Ms. Gamble is a 58-year-old, white female who presented with complaints of confusion. PLAN: She appears to have a UTI. She has a significant renal dysfunction. We will check one more troponin and an echocardiogram, and if this is unremarkable, I would not make any changes to her regimen. Presently, she was already on aspirin, amiodarone, high-intensity statin therapy, as well as a beta-natalie. We will continue with this regimen for the time-being. cc: MD Haile Burdick MD
[2019-04-05] MEDS ORDERED: KLOR-CON PO ONE (13:06)
[2019-04-05] MEDS: ROCEPHIN 1 GM in NS 50 ML IV SCH (17:36)
[2019-04-05] MEDS ORDERED: LANTUS INSULIN SUBQ SCH (21:00)
[2019-04-05] MEDS ORDERED: SSD CREAM TOP SCH (21:00)
[2019-04-05] MEDS: EFFEXOR XR PO SCH (22:53)
[2019-04-05] MEDS: LIPITOR PO SCH (22:54)
[2019-04-05] MEDS: RISPERDAL PO SCH (22:54)
[2019-04-06] MEDS: PERCOCET-5 PO PRN ×2 (03:58→23:14)
--- NOTE | 2019-04-06 07:28 | PROGRESS NOTE ---
DATE: 04/06/2019 SUBJECTIVE: Ms. Gamble is doing better. Her confusion is improved. No high-grade fever or chills. Medical Artist's recommendation noted. Mild cough. No expectoration. No unusual shortness of breath. Denied any dysuria or hematuria. Urine culture growing gram-negative bacteria. Wound on the right leg healing well. OBJECTIVE: Vital Signs: Her vital signs noted. Neck: Supple. No JVD. Lungs: Bibasilar crepitations. Heart: S1 and S2 heard. Abdomen: Soft, globular. Bowel sounds present. Central Nervous System: Alert, awake, answering questions fairly well. CONSIDERATION: The patient admitted with altered mental status. Found to have UTI. The patient does have chronic kidney disease. Her other problems include chronic respiratory failure, mood disorder, COPD, cor pulmonale. Medical Artist's recommendation noted. The patient's lab data reviewed. I am going to check today's electrolytes. I will increase her insulin if clinical condition permits. PLAN: The plan is to discharge the patient home this afternoon. cc: Haile Tovar MD
[2019-04-06] MEDS: SYMBICORT 80/4.5 MICROGM INHALER INH SCH ×2 (08:17→21:20)
[2019-04-06 08:45] LABS: CALCIUM 9.2 mg/dL (8.8-10.2); CREATININE 2.7 mg/dL (0.5-0.9); MAGNESIUM 2.5 mg/dL (1.5-2.7); POTASSIUM 3.6 mmol/L (3.5-5.1)
[2019-04-06] MEDS: ASPIRIN PO SCH (09:13)
[2019-04-06] MEDS: CORDARONE PO SCH ×2 (09:14→23:15)
[2019-04-06] MEDS: LAMICTAL PO SCH ×2 (09:14→23:21)
[2019-04-06] MEDS: KLOR-CON PO SCH (09:14)
[2019-04-06] MEDS: ISORDIL PO SCH ×3 (09:14→17:46)
[2019-04-06] MEDS: ELIQUIS PO SCH ×2 (09:14→23:16)
[2019-04-06] MEDS: PATIENT'S OWN MED PO SCH ×2 (09:17→23:16)
[2019-04-06] MEDS: TOPROL XL PO SCH ×2 (09:17→23:16)
[2019-04-06] MEDS: HUMALOG SUBQ SCH ×3 (09:17→17:46)
[2019-04-06] MEDS: LANTUS INSULIN SUBQ SCH ×2 (09:37→23:22)
--- NOTE | 2019-04-06 15:06 | Diag Imaging Result Doc PS360 ---
US RENAL 2 (RETROPER) COMPLETE - 04/06/2019 INDICATION: matthew/arf TECHNIQUE: COMPARISON: 04/16/2017 FINDINGS: The exam is challenging due to the patient's large size. The kidneys are grossly normal. The right kidney measures 11 x 6.7 x 5.8 cm. The left kidney measures 10 x 6.3 x 4.6 cm. Urinary bladder is obscured. IMPRESSION: Negative exam. Electronically signed by Rajat Zamora 04/06/2019 3:04 PM
[2019-04-06] MEDS: ROCEPHIN 1 GM in NS 50 ML IV SCH (17:47)
[2019-04-06] MEDS: LIPITOR PO SCH (23:15)
[2019-04-06] MEDS: RISPERDAL PO SCH (23:16)
[2019-04-06] MEDS: EFFEXOR XR PO SCH (23:16)
[2019-04-07 07:45] VITALS: BP 133/65
[2019-04-07] MEDS: SYMBICORT 80/4.5 MICROGM INHALER INH SCH (08:12)
--- NOTE | 2019-04-07 08:25 | ECHO REPORT ---
ORDER DATE: 04/06/2019 INTERPRETING PHYSICIAN: Dr. Perez CLINICAL INDICATIONS: Abnormal cardiac enzymes, possible non-ST myocardial infarction. M-MODE MEASUREMENTS: Left ventricle end diastole: 4.5 cm. Left ventricle end systole: 2.7 cm. Posterior wall: 1.0 cm. Interventricular septum: 1.1 cm. Left atrium: 3.7 cm. Aortic diameter: 2.7 cm. SUMMARY OF 2-DIMENSIONAL IMAGING: This study was difficult. Optison was added to optimize visualization of endocardium. The left ventricular systolic function appears to be hyperdynamic. Ejection fraction estimated to be in the range of 70-75%. No wall motion abnormality is noted. The right ventricle appears to be grossly normal. The aortic valve is normal. Color flow mapping unremarkable. Mitral valve shows some calcification of the annulus. Color flow mapping unremarkable. Pulse wave Doppler of mitral inflow shows a "normal E/A ratio." Tissue Doppler of septal and lateral mitral annulus averages 4.5 cm per second. The left atrium is significantly enlarged. The E/E prime ratio is significantly elevated suggesting diastolic dysfunction/impaired left ventricular relaxation, elevation of left atrial pressure. Inferior vena cava is not dilated. Tricuspid valve is unremarkable. Pulmonary pressure estimated to be somewhere in the range of 29-34 mmHg. Pulmonic valve was suboptimally visualized. Doppler signal is unremarkable. The pericardium shows evidence of fat pad. Clinical correction recommended. cc: MD Lencho Vega MD Bharat K. Vakharia, MD
[2019-04-07] MEDS: LAMICTAL PO SCH (08:45)
[2019-04-07] MEDS: ASPIRIN PO SCH (08:46)
[2019-04-07] MEDS: HUMALOG SUBQ SCH (08:46)
[2019-04-07] MEDS: ELIQUIS PO SCH (08:46)
[2019-04-07] MEDS: TOPROL XL PO SCH (08:46)
[2019-04-07] MEDS: ISORDIL PO SCH (08:46)
[2019-04-07] MEDS: KLOR-CON PO SCH (08:46)
[2019-04-07] MEDS: LANTUS INSULIN SUBQ SCH (08:46)
[2019-04-07] MEDS: CORDARONE PO SCH (08:46)
[2019-04-07] MEDS: PATIENT'S OWN MED PO SCH (08:47)
--- NOTE | 2019-04-08 04:47 | DISCHARGE SUMMARY ---
ADMISSION DATE: 04/05/2019 DISCHARGE DATE: 04/07/2019 FINAL DISCHARGE DIAGNOSES: 1. Acute hypoxemic respiratory failure cor pulmonale. 2. Acute on chronic hypercarbic respiratory failure. 3. Chronic obstructive pulmonary disease exacerbation. 4. Metabolic encephalopathy due to urinary tract infection. 5. Uncontrolled diabetes mellitus. 6. Acute on chronic kidney disease. 7. Gastritis and reflux disease. 8. Morbid obesity. 9. Atrial fibrillation. 10. Osteoarthritis. 11. Nonhealing ulcer on the legs. 12. Peripheral neuropathy. 13. Mood disorder. HISTORY OF PRESENT ILLNESS: Ms. Gamble is a 58-year-old white female patient admitted with increasing confusion and altered mental status. The patient had a fall at home. She was brought to the emergency room, and evaluated by ER physician. The patient was hypoxemic and hypercarbic. Her pCO2 was 68, pH 7.48, BUN 87, and creatinine was 3. Troponin was minimally elevated. The patient was admitted for further care. Cardiology consult obtained and recommendation noted. Because of chronic kidney disease, we did renal ultrasound which was benign. The patient's urinalysis did reveal UTI. Urine culture grew E. Coli which was sensitive to multiple antibiotics. Her flu test was negative. We continued her BiPAP. Overall, the patient received maximum benefit of hospitalization. Her mental status improved. The problem with the patient if she uses her BiPAP she does well. This morning patient is doing much better. More alert and awake. OBJECTIVE: Vital Signs: Noted. Neck: Supple. No JVD. Lungs: Bibasilar crepitations. Heart: 2-3/6 systolic murmur at the apex. Abdomen: Soft and globular. Bowel sounds present. Patient does have ulcer right leg. No acute DVT. COTTON PRESSER: Alert, awake and answering questions fairly well. LABORATORY DATA: Revealed WBC count 8.62, hemoglobin 10, hematocrit 35 and platelet count 203,000. Blood gas pH 7.51, pCO2 64, PO2 was 60. Electrolytes done yesterday, her BUN was 88, creatinine 2.7, and potassium 3.6. Urinalysis did reveal UTI due to E. Coli. Renal ultrasound was benign. DISPOSITION: Overall, patient received maximum benefit of hospitalization. She is eager to go home and will discharge patient home today. Follow up with me in 1 week. Monitor Accu-Chek and her blood pressure at home. Advised her to use her BiPAP as much as she can. 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 Follow up with me in 1 week. In case of more distress, call us back or go to emergency room. She will gradually increase her insulin. I discharge her on Macrobid. Overall discharge condition satisfactory. cc: Haile Tovar MD
== END 2019-04-07 10:31 | disposition home or self-care (01) | DRG 689 ==
LOC: SUPCPDRO → 3N 12:25 → ED 12:25
PROVIDERS: ADMIT Internal Medicine; ATTEND Internal Medicine

== ENCOUNTER 2019-05-01 03:02 | Inpatient (IN) ==
--- NOTE | 2019-05-01 03:33 | PROVIDER DOCUMENTATION ---
HPI-Chest Pain - General Chief Complaint: Chest Pain Stated Complaint: cp Time Seen by Provider: 05/01/19 03:12 Source: patient Allergies/Adverse Reactions: Patient Allergies Allergy/AdvReac Type Severity Reaction Status Date / Time latex Allergy Intermediate RASH Verified 04/14/19 14:47 Home Medications: Home Medication List Medication Instructions Recorded Confirmed Last Taken Type Lamotrigine [Lamictal] 150 mg PO BID 04/10/12 05/01/19 04/14/19 History Metoprolol Succinate E.r. [Toprol 50 mg PO QAM 04/10/12 05/01/19 04/14/19 History Xl] Risperidone [Risperdal] 3 mg PO HS 04/10/12 05/01/19 1 Day Ago History ~04/13/19 Venlafaxine E.r. [Effexor Xr] 75 mg PO DAILY #0 05/10/13 05/01/19 04/14/19 History Atorvastatin Calcium [Lipitor] 40 mg PO HS 12/07/17 05/01/19 1 Day Ago History ~04/13/19 Isosorbide Dinitrate 40 mg PO TID 01/23/18 05/01/19 04/14/19 History Aspirin 81 mg PO DAILY 02/24/18 05/01/19 04/14/19 History Budesonide/Formoterol Inhaler 2 puff INH RTBID inhaler 04/05/18 05/01/19 04/14/19 Rx [Symbicort 80/4.5 Microgm Inhaler] Torsemide [Demadex] 75 mg PO BID #0 12/28/18 05/01/19 04/14/19 Rx Insulin Glargine [Lantus Insulin] 60 unit SUBQ BID 03/08/19 05/01/19 04/14/19 History Potassium Chloride E.r. [Klor-Con] 20 meq PO BID 03/08/19 05/01/19 04/14/19 History Chlorthalidone 25 mg PO DAILY 04/04/19 05/01/19 04/14/19 History Apixaban [Eliquis] 5 mg PO BID tab 04/07/19 05/01/19 04/14/19 Rx Oxycodone/APAP 5 mg/325 mg 1 ea PO Q8H PRN PRN tab 04/07/19 05/01/19 1 Day Ago Rx [Percocet-5] ~04/13/19 Albuterol Sulfate Inhaler 1 puff INH Q4H PRN PRN 05/01/19 05/01/19 Unknown History [Ventolin Hfa] Chlorthalidone 25 mg PO QAM 05/01/19 05/01/19 Unknown History Insulin Lispro [Humalog] 25 unit SQ TID 05/01/19 05/01/19 Unknown History Isosorbide Dinitrate 40 mg PO TID 05/01/19 05/01/19 Unknown History Linaclotide [Linzess] 72 mcg PO DAILY 05/01/19 05/01/19 Unknown History Metoprolol [Lopressor] 25 mg PO QHS 05/01/19 05/01/19 Unknown History Metoprolol [Lopressor] 25 mg PO QHS 05/01/19 05/01/19 Unknown History Torsemide 100 mg PO BID 05/01/19 05/01/19 Unknown History - History of Present Illness-CP Nature of Presenting Problem: Patient was at home and was about to go to bed when she started having chest pain in the left side of her chest. It was a 10/10. It radiated to her left jaw and left arm. No n/v. No diaphoresis. It is now a 4/10. She has had a stent in the past and recently had cardioversion at [facility] for atrial fibrilation. Location: reports: substernal Chest Pain Radiation: reports: arms, neck Quality of Pain: reports: fullness, pressure Severity in ED: mild Onset/Duration: just prior to arrival Timing: still present, improving Context/Activities at Onset: reports: light activity Modifying Factors: improves with: nothing Associated Symptoms: reports: shortness of breath Aspirin Treatment Today: 81 mg x 1, provided at home Prior Chest Pain/Cardiac Workup: reports: no prior cardiac workup Similar Symptoms Previously?: Yes Recently Seen Here or By Another Healthcare Provider: Yes Review of Systems - Adult - REVIEW OF SYSTEMS - ADULT Constitutional: reports: no symptoms reported Eyes: reports: no symptoms reported Ears, Nose, Mouth & Throat: reports: no symptoms reported Cardiovascular: reports: see HPI Gastrointestinal: reports: see HPI Genitourinary: reports: no symptoms reported Musculoskeletal: reports: no symptoms reported Integumentary: reports: no symptoms reported Neurological: reports: no symptoms reported Psychiatric: reports: no symptoms reported Endocrine: reports: no symptoms reported Hematologic/Lymphatic: reports: no symptoms reported Allergic/Immunologic: reports: no symptoms reported Past History - Adult - PAST MEDICAL HISTORY-ADULT Review of Records: reports: Old Records Reviewed, Nursing Assessment Review Major Childhood Illnesses: reports: denies history Cardiovascular: reports: CAD, CHF, HTN, hyperlipidemia, [place], other (mitral stenosis) Respiratory: reports: COPD, lung disease, sleep apnea Gastrointestinal: reports: GERD, IBS, liver disease, pancreatitis, other (hiatal hernia) Obstetrical/Gynecological: reports: uterine/ovarian cancer (uterine) Genitourinary: reports: kidney disease Musculoskeletal: reports: denies history Neurological: reports: denies history Psychiatric: reports: anxiety, bipolar Endocrine/Immune: reports: Diabetes Other Conditions: reports: denies history - PRIOR SURGERIES/PROCEDURES Surgical/Procedure History: reports: appendectomy, cholecystectomy, cardiac stent (LAD), hysterectomy, tonsillectomy, other (facial reconstruction) - PRIOR HOSPITALIZATIONS Prior Hospitalizations: reports: for similar symptoms - IMMUNIZATION STATUS Childhood Immunizations: See Nurse Assessment Flu Vaccine: See Nurse Assessment - FAMILY HISTORY Family History: reviewed, not pertinent Physical Exam-General - CONSTITUTIONAL General Appearance: appears well, no apparent distress - EYES Eyes: PERRL/EOMI, pink conjunctivae - HEAD, EARS, NOSE, MOUTH & THROAT HENMT: normocephalic/atraumatic, moist mucous membranes, normal ENT inspection, TMs normal, pharynx normal - NECK Neck: non-tender, full range of motion, supple - RESPIRATORY Respiratory: chest non-tender, lungs clear, normal breath sounds, no pleuratic chest pain, no respiratory distress, no accessory muscle use - CARDIOVASCULAR Cardiovascular: normal peripheral pulses, regular rate, rhythm, systolic murmur - GASTROINTESTINAL (ABDOMEN) Abdominal Exam: non tender, soft, no organomegaly, no pulsatile mass - LYMPHATIC Lymphatic: no adenopathy - MUSCULOSKELETAL Back Exam: normal inspection, no CVA tenderness Extremity: normal range of motion, other (chronic ulcers of lower legs) - SKIN Integumentary: normal color, normal turgor - NEUROLOGIC Neurologic: grossly normal - PSYCHIATRIC Psych/Mental Status: depressed affect - HEART Score HEART Score: History: Highly Suspicious HEART Score: ECG: Non-Specific Repolarization Disturbance/LBBB/PM HEART Score: Age: 45-65 Years HEART Score: Risk Factors for Atherosclerotic Disease: > or = 3 Risk Factors or History of Atherosclerotic Disease HEART Score: Troponin: < or = Normal Limit Total HEART Score:: 6 Progress - PLAN OF CARE/RESULTS Progress/Plan/Lab Results: Vital Signs - 8 hr 05/01/19 03:20 Temperature 97.7 F Pulse Rate 71 Respiratory Rate 18 Blood Pressure 133/49 O2 Sat by Pulse Oximetry 97 Laboratory Results - last 24 hr 05/01/19 05/01/19 05/01/19 03:39 03:39 03:39 WBC RBC Hgb Hct MCV MCH MCHC RDW Std Deviation Plt Count MPV Immature Gran % (Auto) Neut % (Auto) Lymph % (Auto) [place] % (Auto) Eos % (Auto) Baso % (Auto) Immature Gran # (Auto) Neut # (Auto) Lymph # (Auto) [place] # (Auto) Eos # (Auto) Baso # (Auto) Sodium 140 Potassium 4.0 Chloride 87 L Carbon Dioxide 37 H Anion Gap 16 BUN 98 H Creatinine 2.6 H Estimated GFR/1.73 m2 19 BUN/Creatinine Ratio 38 Glucose 222 H Calculated Osmolality 317 Calcium 9.5 Total Bilirubin 0.35 AST 18 ALT 18 Alkaline Phosphatase 123 H Creatine Kinase 117 Troponin T 0.110 H Och-Y-Xyvyiupkmhy Pept 302 H Total Protein 8.1 Albumin 4.0 Globulin 4.1 Albumin/Globulin Ratio 1.0 05/01/19 03:39 WBC 9.55 RBC 3.69 L Hgb 10.2 L Hct 35.1 L MCV 95.1 MCH 27.6 MCHC 29.1 L RDW Std Deviation 18.4 H Plt Count 246 MPV 9.4 Immature Gran % (Auto) 0.3 Neut % (Auto) 71.6 Lymph % (Auto) 14.1 L [place] % (Auto) 9.5 H Eos % (Auto) 4.1 Baso % (Auto) 0.4 Immature Gran # (Auto) 0.03 Neut # (Auto) 6.83 H Lymph # (Auto) 1.35 [place] # (Auto) 0.91 H Eos # (Auto) 0.39 Baso # (Auto) 0.04 Sodium Potassium Chloride Carbon Dioxide Anion Gap BUN Creatinine Estimated GFR/1.73 m2 BUN/Creatinine Ratio Glucose Calculated Osmolality Calcium Total Bilirubin AST ALT Alkaline Phosphatase Creatine Kinase Troponin T Ghi-B-Jadhrfbegqb Pept Total Protein Albumin Globulin Albumin/Globulin Ratio Orders Category Date Time Status CHEST-PORTABLE [RAD] Stat Exams 05/01/19 03:21 Taken CBC WITH ELECTRONIC DIFF [HEME] Stat Lab 05/01/19 03:39 Completed CK PROFILE [SP CHEM] Stat Lab 05/01/19 03:39 Completed COMPREHENSIVE METABOLIC PANEL [CHEM] Stat Lab 05/01/19 03:39 Completed PRO B-NATRIURETIC PEPTIDE Stat Lab 05/01/19 03:39 Completed TROPONIN T Stat Lab 05/01/19 03:39 Completed EKG [EKG] Stat Ther 05/01/19 03:13 Ordered Result Diagrams: 05/01/19 03:39 05/01/19 03:39 - EKG 1 Time of EKG reading by physician:: 03:37 EKG Read and Signed by:: Brandyn Ayala EKG Interpretation (*Must complete 3 of following elements*): Abnormal Rate: 66 Rhythm: sinus [place]: normal QRS: poor R wave progression, other (low voltage) [place] Interval: normal ST Wave: normal Prior EKG Comparison: unchanged from prior - XRAY 1 XRAY Study: Chest (mildly enlarged heart shadow. No infiltrates. No changes vs March 2019) - CONSULTS/PCP/HOSPITALIST Notification #1 *Consult/PCP/Hospitalist*: Dr Varela Time Discussed: 04:41 Consult Disposition: Will see in ED Departure - Departure Date of Disposition Decision: 05/01/19 Time of Disposition Decision: 04:42 DIAGNOSIS: Chest pain due to coronary artery disease, Shortness of breath Disposition: ADMITTED INPATIENT 09 Certified Medical Emergency: Emergent Condition: Fair Referrals and Follow-Ups: Haile Tovar MD [Primary Care Provider] - - Critical Care Note This patient required my direct & personal management of CC.: No Attestation - Physician/ JAVIER Attestation Patient care was provided by Advanced Practice Provider:: No The physician spent face to face time with patient:: Yes Advanced Practice Provider documentation review:: Supervising physician onsite and consulted in the evaluation and care of this patient. The physician did have a face to face encounter with the patient.
[2019-05-01 03:59] LABS: BASO# 0.04 X1000 (0.0-0.2); BASO% 0.4 % (0.0-0.8); EOS# 0.39 X1000 (0.0-0.7); EOS% 4.1 % (0.0-10.0); HEMATOCRIT 35.1 % (37.0-47.0); HEMOGLOBIN 10.2 g/dL (12.0-16.0); IMM GRAN# 0.03 X1000 (0.0-0.04); IMM GRAN% 0.3 % (0.0-0.5); LYMPH# 1.35 X1000 (1.2-3.4); LYMPH% 14.1 % (20.5-51.1); MCH 27.6 PG (27-31); MCHC 29.1 g/dL (33-37); MCV 95.1 FL (81-99); MONO# 0.91 X1000 (0.11-0.59); MONO% 9.5 % (1.7-9.3); MPV 9.4 FL (7.4-10.4); NEUT# 6.83 X1000 (1.4-6.5); NEUT% 71.6 % (42.2-75.2); PLT 246 X1000 (130-400); RBC 3.69 XMIL (4.2-5.4); RDW 18.4 % (11.5-14.5); WBC 9.55 X1000 (4.8-10.8)
[2019-05-01 04:11] LABS: CALCIUM 9.5 mg/dL (8.8-10.2); CREATININE 2.6 mg/dL (0.5-0.9); TOTAL BILIRUBIN 0.35 mg/dL (0.20-1.00); TOTAL PROTEIN 8.1 g/dL (6.3-8.3)
--- NOTE | 2019-05-01 07:09 | EKG Report ---
Test Performed on : 05/01/2019 06:05:34 AM Test Reason : REPEAT Blood Pressure : / mmHG Vent. Rate : 062 BPM Atrial Rate : 062 BPM P-R Int : 208 ms QRS Dur : 088 ms QT Int : 452 ms P-R-T Axes : 078 071 049 degrees QTc Int : 458 ms Normal sinus rhythm. Low voltage QRS Septal infarct (cited on or before 06-NOV-2017) Abnormal ECG When compared with ECG of 01-MAY-2019 03:25, (Unconfirmed) ST no longer depressed in Lateral leads Unconfirmed Result
--- NOTE | 2019-05-01 07:10 | EKG Report ---
Test Performed on : 05/01/2019 03:25:11 AM Test Reason : chest pain Blood Pressure : / mmHG Vent. Rate : 066 BPM Atrial Rate : 066 BPM P-R Int : 196 ms QRS Dur : 076 ms QT Int : 460 ms P-R-T Axes : 095 076 058 degrees QTc Int : 482 ms Normal sinus rhythm. Low voltage QRS Septal infarct (cited on or before 06-NOV-2017) Abnormal ECG When compared with ECG of 14-APR-2019 14:12, (Unconfirmed) MT interval has decreased Unconfirmed Result
--- NOTE | 2019-05-01 07:56 | HISTORY AND PHYSICAL ---
CHIEF COMPLAINT: Left-sided chest pain noted prior to admission. HISTORY OF PRESENT ILLNESS: Ms. Trinh Gamble is a 58-year-old female, who has a history of multiple medical conditions, including coronary artery disease, congestive heart failure atrial fibrillation, hypertension, hyperlipidemia, pulmonary hypertension, COPD, obstructive sleep apnea, diabetes mellitus, bipolar disorder, gastroesophageal reflux disease, anxiety disorder, chronic kidney disease. She presents to the hospital because of left-sided chest pain which she noted prior to admission. She first noticed the pain around 1:30 a.m. on 05/02/2019. She describes the pain as sharp, constant, on a scale of 0 to 10 it is 10/10, radiates to her neck, both jaw areas as well as the left upper extremity. The pain is improved with nitroglycerin and made worse with activity. She has associated shortness of breath, palpitations. She indicates that this presentation is similar to the one she had when she had her last myocardial infarction. That was sometime around 2001. Then she had a stent placed in her LAD. Her most recent cardiac workup included cardiac stress test done in 2019. She has also had recent cardioversion done for atrial fibrillation. She follows up with Cardiology at [facility]. The patient was seen and evaluated in the ER. She has now been referred to the floor for further management. SOCIAL HISTORY: She denies any history of cigarette smoking. No alcohol or drug use. ALLERGIES: She is allergic to latex. FAMILY HISTORY: Positive for diabetes. PAST SURGICAL HISTORY: Include the following 1. Cholecystectomy. 2. Appendectomy. 3. Jaw surgery. 4. Hysterectomy. 5. Nose reconstruction. 6. Ankle surgery. PAST MEDICAL HISTORY: Includes: 1. Severe pulmonary hypertension. 2. Diastolic heart failure. 3. Coronary artery disease. 4. COPD. 5. Pulmonary nodule. 6. Hypertension. 7. Hyperlipidemia. 8. Type 2 diabetes mellitus. 9. Morbid obesity. 10. Sleep apnea. 11. History of medical noncompliance. 12. History of tobacco use history. 13. Chronic kidney disease III. 14. Bipolar disorder. 15. Anxiety disorder. MEDICATIONS: Include the followin. Lamictal 150 mg p.o. twice a day. 2. Methocarbamol 50 mg p.o. once a day. 3. Risperdal 3 mg p.o. at bedtime. 4. Effexor 75 mg p.o. once a day. 5. Atorvastatin 40 mg p.o. at bedtime. 6. Isosorbide dinitrate 40 mg p.o. 3 times a day. 7. Symbicort 80/4.5, 2 puffs twice a day. 8. Torsemide 75 mg p.o. twice a day. 9. Lantus 16 units subcutaneous twice a day. 10. Potassium chloride 20 mEq p.o. twice a day. 11. Chlorthalidone 25 mg p.o. daily. 12. Eliquis 5 mg p.o. twice a day. 13. Percocet 5 one q.8 hours p.r.n. 14. Ventolin HFA 1 puff q.4 hours p.r.n. 15. Chlorthalidone 25 mg p.o. once a day. 16. Humalog 25 units subcutaneous 3 times a day. 17. Linzess 72 mcg p.o. daily. REVIEW OF SYSTEMS: General: No fever. 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 Eyes: No blurred vision. ENT: She has no hearing loss or sinus problems. Respiratory: No cough. GI: She has nausea with diarrhea. No abdominal pain. : No dysuria. Hematology: She does have evidence of stasis dermatitis in the lower extremities. Musculoskeletal: Has joint pain. Hematology: She is on anticoagulation and bleeds easily. Endocrinology: She has diabetes but no thyroid disease. Psychiatric: She does have bipolar disorder with anxiety and depression. Allergy/Immunology: No symptoms suggestive of allergic rhinitis. LABORATORY DATA: WBC is 9.55, hematocrit is 35.1, with a platelet count of 246,000. Sodium is 140, potassium is 4.0, chloride is 85, bicarb is 37, BUN is 98, creatinine is 2.6. Troponin is 0.110. ProBNP is 302. Chest x-ray shows evidence of cardiomegaly, no significant pulmonary vascular congestion noted. EKG shows normal sinus rhythm with low-voltage QRS with evidence of Q- waves noted in V1 as well as V2 and also in the inferior leads. ASSESSMENT AND PLAN: 1. Chest pain. Rule out acute myocardial infarction. Place patient on telemetry. Follow up on serial cardiac enzymes. Maintain patient on aspirin, beta natalie, nitroglycerin, statin. Consult with Cardiology. We will also get a D-dimer level. If elevated, need to get a V/Q scan. 2. Coronary artery disease. Maintain patient on anti-platelet, beta natalie, nitroglycerin as well as statin. 3. Chronic diastolic congestive heart failure. Monitor intake and output, as well as daily weights. Diuretics as needed. 4. Atrial fibrillation. Continue rate controlling agent as well as anticoagulation. 5. Hypertension. Optimize blood pressure control. 6. Hyperlipidemia. Continue statin. 7. Pulmonary hypertension. Aware. 8. Chronic obstructive pulmonary disease. Nebulized bronchodilators as needed. 9. Obstructive sleep apnea. Continue CPAP. The patient does have one at home. 10. History of bipolar disorder, as well as anxiety disorder. Continue appropriate psych medications. 11. Diabetes mellitus. Monitor blood sugar levels. Maintain patient on sliding scale insulin. Continue Lantus. Check hemoglobin A1c level. 12. Gastroesophageal reflux disease. Maintain patient on proton pump inhibitor. 13. Acute on chronic kidney disease. Follow up on renal function. Avoid nephrotoxic agent. Judicious use of IV fluids in light of congestive heart failure. 14. Bilateral lower extremity cellulitis, probably secondary to stasis. Maintain patient on antibiotics. 15. Deep vein thrombosis prophylaxis. Patient is currently on Eliquis. 16. Gastrointestinal prophylaxis. Maintain patient on proton pump inhibitor. cc: Octaviano Varela MD
--- NOTE | 2019-05-01 08:04 | Diag Imaging Result Doc PS360 ---
CHEST-PORTABLE - 05/01/2019 INDICATION: chest pain COMPARISON: 04/04/2019 FINDINGS: Stable mild cardiomegaly and pulmonary vascular congestion. No infiltrates or edema. No pneumothorax or pleural effusion. IMPRESSION: Cardiomegaly and pulmonary vascular congestion. Electronically signed by Rajat Zamora 05/01/2019 8:02 AM
[2019-05-01] MEDS ORDERED: DUONEB (A & A) INH PRN (08:51)
[2019-05-01] MEDS ORDERED: ISORDIL PO SCH (09:00)
[2019-05-01] MEDS ORDERED: EFFEXOR XR PO SCH (09:00)
[2019-05-01] MEDS: ELIQUIS PO SCH ×2 (10:40→21:31)
[2019-05-01] MEDS: LAMICTAL PO SCH ×2 (10:40→21:32)
[2019-05-01] MEDS: TOPROL XL PO SCH (10:40)
[2019-05-01] MEDS: ASPIRIN PO SCH (10:41)
[2019-05-01] MEDS: LANTUS INSULIN SUBQ SCH ×2 (10:45→21:27)
[2019-05-01] MEDS: SYMBICORT 80/4.5 MICROGM INHALER INH SCH ×2 (11:08→19:45)
[2019-05-01] MEDS: HUMULIN R SUBQ SCH ×3 (12:31→21:33)
--- NOTE | 2019-05-01 14:32 | PROGRESS NOTE ---
DATE: 05/01/2019 SUBJECTIVE: Patient not complaining of any chest pains currently. She has been seen in the wound clinic for a wound on her right lower leg. She has had some chronic leg pains. OBJECTIVE: Vital signs: Afebrile, pulse 72, respirations 18, blood pressure 135/50, O2 saturation 98% on 2 L. Cardiovascular: RRR. Lungs: CTA. Extremities: No calf tenderness or cords. There is a wound to the right distal glez area anteriorly. LABORATORY: CBC satisfactory. Platelets 246,000, hemoglobin 10.2, white count 9.55. D-dimer came back elevated at 0.93. Blood sugars in the mid 200s. Troponins were mildly elevated at 0.1 and 0.095. BUN and creatinine are 98 and 2.6 respectively and these are chronic elevations. Total CKs are 117 to 106. Chest x-ray reveals some cardiomegaly with pulmonary vascular congestion. No infiltrates or edema. ASSESSMENT: 1. Chest pain. Improved per patient. 2. Coronary artery disease. 3. Chronic diastolic congestive heart failure. 4. Paroxysmal atrial fibrillation, on chronic Eliquis treatment. 5. Leg pain and wound right distal lower extremity with elevated D-dimer, unlikely deep vein thrombosis and pulmonary embolism. 6. Chronic kidney disease. 7. Obstructive sleep apnea. 8. Chronic obstructive pulmonary disease. 9. Pulmonary hypertension. 10. Hypertension. 11. Hyperlipidemia. 12. Bipolar disorder. PLAN: Continue current treatment to include Lopressor, aspirin, Eliquis, Lipitor, Symbicort, her Lantus insulin, SSI, isosorbide dinitrate. Continue her Lamictal, Risperdal, and Effexor. Dr. Castano is going to evaluate the patient as well. We will check a V/Q scan tomorrow and possibly might need venous Dopplers lower extremity tomorrow. For now continue the Eliquis at full strength. cc: Kannan Forrester MD
--- NOTE | 2019-05-01 15:35 | CARDIOLOGY CONSULTATION ---
DATE: 05/01/2019 HISTORY OF PRESENT ILLNESS: Ms. Trinh Gamble is a 58-year-old female with a history of coronary artery disease, history of heart failure, COPD, bipolar disorder, chronic renal insufficiency, came to the emergency room with chest discomfort where she had chest pain around 1:30 a.m., describes as pressure-like sensation with radiation to the neck, with radiation to the upper extremity. She indicates that this is similar to when she had her last myocardial infarction in 2002. Symptoms lasted for about 30 minutes. By the time she was here at the hospital she was pain free. She had a cardioversion done for atrial fibrillation earlier this year at [facility] and had a stress test in 2018, per patient it was unremarkable. She has chronic kidney disease as well. There is no history of palpitations. There is no dizziness or syncope. REVIEW OF SYSTEM: A 14-point review of systems was done. GI System: There is no history of nausea, vomiting, or diarrhea. There is no history of hematemesis or melena. Central nervous system: No focal weakness to suggest a CVA or TIA. PAST MEDICAL HISTORY: 1. Coronary artery disease, status post stent placement to left anterior descending artery. 2. Paroxysmal atrial fibrillation, status post cardioversion earlier this year at [facility]. 3. Anticoagulation therapy. 4. Diabetes. 5. Hyperlipidemia. 6. Sleep apnea. 7. Chronic kidney disease. 8. Bipolar disorder. 9. COPD. 10. Ankle surgery. 11. Nose reconstruction. 12. Jaw surgery. 13. Appendectomy. 14. Cholecystectomy. 15. Anxiety disorder. HOME MEDICATIONS: 1. Linzess. 2. Humalog. 3. Ventolin. 4. Percocet. 5. Eliquis 5 mg b.i.d. 6. Chlorthalidone 25. 7. Potassium supplements. 8. Lantus. 9. Torsemide 75 mg b.i.d. 10. Symbicort. 11. Isosorbide dinitrate 40 mg 3 times a day. 12. Effexor 75. 13. Atorvastatin 40. 14. Risperdal at bedtime. 15. Lamictal 150 b.i.d. PHYSICAL EXAMINATION: Vital signs: Blood pressure was 135/70. Cardiovascular system: First and second heart sounds were heard. Jugular venous pressure was normal. There was no S3 gallop. Respiratory System: Normal air entry. There are decreased breath sounds. There are no crepitations and rhonchi. Abdomen: Soft, nontender. There was no guarding or rigidity. Bowel sounds were heard. Central nervous system: Alert and oriented. Was moving all 4 extremities. Extremities: Examination revealed mild pedal edema. LABORATORY EXAMINATION: Sodium 140, potassium 4.0, BUN 98, creatinine 2.8. CK was normal. Troponin abnormal at 0.110. 0.102. Subsequent troponin was 0.095. Electrocardiogram revealed normal sinus rhythm. There were no ST-T changes to suggest ischemia or infarction. Chest x-ray: Cardiomegaly, mild pulmonary vascular congestion. ASSESSMENT: Ms. Trinh Gamble is a 58-year-old lady with history of coronary artery disease, stent placement to the left anterior descending artery in the past, paroxysmal atrial fibrillation status post cardioversion earlier this year at [facility], history of diastolic heart failure, chronic kidney disease, obstructive sleep apnea, bipolar disorder, comes with complaints of chest pain as described above. CK was normal. Electrocardiogram did not reveal any significant ST-T changes. Symptoms lasted for 30 minutes. She has chronic kidney disease. Nephrology has been consulted. PLAN: 1. We will get a Cardiolite stress test to assess for and rule out ischemia. We will get an echocardiogram to reassess cardiac and valvular function. 2. I suspected her troponin abnormality is secondary to chronic kidney disease. However, she has a significant cardiac history as well. I have not made any changes. 3. She has undergone cardioversion. She has paroxysmal atrial fibrillation and is on Eliquis. I have not made any changes to her medication. 4. She is on beta blockers. I have advised her to continue with the medication. 5. For antianginals, she is on isosorbide dinitrate. I have not made any changes to her medication. 6. She takes Lipitor for hyperlipidemia I have not made any changes to her medications. Thank you for the consult. We will follow hospital course. cc: MD RASHMI Garg
[2019-05-01] MEDS: ISORDIL PO SCH ×2 (17:31→21:31)
[2019-05-01] MEDS ORDERED: FLU VACCINE IM ONE (18:27)
[2019-05-01] MEDS: LOPRESSOR PO SCH (21:30)
[2019-05-01] MEDS: RISPERDAL PO SCH (21:32)
[2019-05-01] MEDS: LIPITOR PO SCH (21:37)
[2019-05-01] MEDS: PERCOCET-5 PO PRN (21:38)
[2019-05-02] MEDS: HUMULIN R SUBQ SCH ×4 (06:34→22:46)
[2019-05-02 06:47] LABS: BASO# 0.03 X1000 (0.0-0.2); BASO% 0.4 % (0.0-0.8); EOS# 0.31 X1000 (0.0-0.7); EOS% 4.4 % (0.0-10.0); HEMATOCRIT 33.9 % (37.0-47.0); HEMOGLOBIN 9.8 g/dL (12.0-16.0); LYMPH# 1.09 X1000 (1.2-3.4); LYMPH% 15.5 % (20.5-51.1); MCH 27.5 PG (27-31); MCHC 28.9 g/dL (33-37); MONO# 0.77 X1000 (0.11-0.59); MPV 9.3 FL (7.4-10.4); NEUT# 4.82 X1000 (1.4-6.5); NEUT% 68.7 % (42.2-75.2); PLT 217 X1000 (130-400); RBC 3.57 XMIL (4.2-5.4); RDW 17.9 % (11.5-14.5); WBC 7.02 X1000 (4.8-10.8)
[2019-05-02] MEDS ORDERED: PROTONIX PO SCH (07:00)
[2019-05-02 07:02] LABS: IRON SATURATION 17 %; TIBC 273 ug/dL; TOTAL IRON 47 ug/dL (49-151); UNBOUND IRON 226 ug/dL (112-346)
[2019-05-02 07:15] LABS: CALCIUM 9.4 mg/dL (8.8-10.2); POTASSIUM 3.5 mmol/L (3.5-5.1)
[2019-05-02 07:32] LABS: TSH 4.62 uIUmL (0.27-4.20)
[2019-05-02] MEDS: SYMBICORT 80/4.5 MICROGM INHALER INH SCH ×2 (07:53→19:43)
[2019-05-02 08:14] LABS: HEMOGLOBIN A1C 6.2 % (4.8-6.0)
[2019-05-02] MEDS: LAMICTAL PO SCH ×2 (08:42→22:03)
[2019-05-02] MEDS: ELIQUIS PO SCH ×2 (08:42→22:02)
[2019-05-02] MEDS: TOPROL XL PO SCH (08:43)
[2019-05-02] MEDS: ASPIRIN PO SCH (08:43)
[2019-05-02] MEDS: EFFEXOR XR PO SCH (08:43)
[2019-05-02] MEDS: ISORDIL PO SCH ×3 (08:43→22:02)
--- NOTE | 2019-05-02 09:45 | PROGRESS NOTE ---
DATE: 05/02/2019 Ms. Gamble, who is a 58-year-old, white female, was admitted with chest pain. She is anemic. Hemoglobin is 9.8. Her BUN was 96, creatinine was 3.0. She has chronic renal failure, diabetes. TSH was 4.62. Cardiology consultation with Dr. Castano was made yesterday and [facility]. -6 cc: MD Haile Mchugh MD
[2019-05-02] MEDS: LANTUS INSULIN SUBQ SCH ×2 (10:00→22:04)
--- NOTE | 2019-05-02 10:36 | Diag Imaging Result Doc PS360 ---
EXAM: CHEST-2 VIEWS 05/02/2019 HISTORY: CHEST PAIN TECHNIQUE: PA and lateral chest COMMENT: There is mild cardiomegaly. There is no evidence of acute pulmonary disease. Compared to 05/01/2019 considering differences in technique there has been no significant change. IMPRESSION: Borderline cardiomegaly. Electronically signed by Chester Dozier 05/02/2019 10:34 AM
--- NOTE | 2019-05-02 10:39 | Diag Imaging Result Doc PS360 ---
EXAM: LUNG SCAN / VQ 05/02/2019 HISTORY: elevated d-dimer/cp TECHNIQUE: Ventilation/perfusion lung scan, 42.8 mCi of technetium 99m DTPA aerosol and 6.3 mCi of technetium 99m MAA intravenously. COMMENT: There is no evidence of ventilation/perfusion mismatch. No absolute perfusion defects are present. IMPRESSION: Normal study. Electronically signed by Chester Dozier 05/02/2019 10:36 AM
--- NOTE | 2019-05-02 10:56 | NEPHROLOGY CONSULTATION ---
DATE: 05/02/2019 REASON FOR ADMISSION: Left-sided chest pain, rule out [place]. REASON FOR CONSULTATION: Assist with management, acute on chronic kidney disease. CONSULTING PHYSICIAN: Dr. Varela. HISTORY OF PRESENT ILLNESS: This is a 58-year-old female with a past medical history of severe pulmonary hypertension, diastolic heart failure, coronary artery disease, type 2 diabetes, and chronic kidney disease with a baseline creatinine of around 2 to 2.5. She came into the emergency room secondary to left-sided chest pain that radiated to the neck, the jaw and the left upper extremity. Her pain improved with nitroglycerin. She was admitted to the hospital for further workup and treatment. She does have a history of a myocardial infarction with a stent placed to the LAD in 2001. 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 She had a cardiac stress test done earlier this year. She also had a recent cardioversion for atrial fibrillation. The patient states she has never seen a assembler bonding. She states that over the last several months her energy level has declined. She has had nausea in the morning. She states that she has lower extremity edema that is "always there." States that her shortness of breath does get worse if her edema is worse. This morning I see her; she is able to sit up on the side of the bed and ambulate with some assistance. She has been able to do some self-care this morning. She is about to go down for a V/Q scan when I see her. PAST MEDICAL HISTORY: 1. Again pulmonary hypertension, severe. 2. Diastolic heart failure, coronary artery disease, COPD, pulmonary nodule, hypertension, hyperlipidemia, type 2 diabetes with retinopathy, morbid obesity, sleep apnea. 3. History of noncompliance. 4. History of tobacco use. 5. CKD. 6. Bipolar anxiety. SURGICAL HISTORY: Cholecystectomy, appendectomy, jaw surgery, hysterectomy, nose reconstruction, ankle surgery. She has had cardiac stenting and cardioversion. ALLERGIES: Latex. HOME MEDICATIONS: Listed as Lamictal methocarbamol, Risperdal, Effexor, Atorvastatin, isosorbide, Symbicort, torsemide, Lantus, potassium chloride, chlorthalidone, Eliquis, Percocet, Ventolin, Humalog and Linzess. FAMILY HISTORY: Diabetes. SOCIAL HISTORY: No EtOH, tobacco, or illicit drug use. REVIEW OF SYSTEMS: Pertinent positives noted above in the HPI. PHYSICAL EXAMINATION: Vital Signs: Temperature 97.7 degrees, pulse 59, respiratory rate 18, blood pressure 136/56. Intake 550 mL; output 1.1 L voiding. General: This is a middle-aged female, who appears older than stated age. When I see her, she is sitting up on the bedside commode and is able to transfer to the bed with minimal assistance. HEENT: Normocephalic, atraumatic. HATTIE. Conjunctivae are pale. Oral mucosa moist. Dentition poor. Neck: Supple, thick, does have JVD. Cardiovascular: Regular rate and rhythm. Pulmonary: Clear bilaterally. She is on O2 supplementation via nasal cannula. Abdomen: Obese, soft with large pannus. : Voiding. Extremities: She has significant vascular disease bilateral lower extremities. She has some trace lower extremity edema today. Integumentary: Skin is warm and dry. Neurologic: Grossly nonfocal. Psych: She is calm and cooperative with exam with adequate insight. LAB DATA: WBC of 7.0, hemoglobin 9.8. Sodium 142, potassium 3.5, CO2 37, chloride 91. BUN 96, creatinine 3.0 (2.6). X-RAY DATA: Chest x-ray with cardiomegaly. No significant pulmonary vascular congestion. ASSESSMENT AND PLAN: 1. Acute on chronic kidney disease. Little change from baseline. She continues to make excellent urine. We will go ahead and order renal imaging today and urine studies to assist with plan. I also discussed with the patient that according to her history when she is out of the hospital, she will need to follow up with us as an outpatient for her chronic kidney disease. 2. Electrolytes,acid-base balance, anemia. She does have some mild anemia. I will check her iron stores, but because of current medical plans, would not add that yet. 3. Shortness of breath. It looks like she will have a ventilation perfusion scan today and a Cardiolite stress test tomorrow. Once we have those results back, we will assist with our care plan. Dictated by CYNTHIA Mackenzie for Jesus Manuel Luna MD Face to face encounter, data reviewed, discussed with Chon Matthews on 05/02/19. I agree with the above assessment and plan of care. cc: Jesus Manuel D. GlaMD Haile rees MD MTDD
--- NOTE | 2019-05-02 11:36 | Diag Imaging Result Doc PS360 ---
EXAM: CT ABDOMEN/PELVIS W/O CONTRAST 05/02/2019 HISTORY: decreased renal function TECHNIQUE: This exam was performed using automated exposure control, adjustment of mA or kV according to patient size, and/or use of iterative reconstruction technique. COMMENT: There is apparent atelectasis in the inferior lingula and left lower lobe. This was not present time the previous study. There are nodules in the left lower lobe most notably on image 14. This measures almost 11 mm and has some faint calcification in the center. There is another nodule present in the costophrenic sulcus on image 32 measuring less than 4 mm in diameter. This is fairly dense but not clearly calcified. There is a small amount of pericardial effusion. The spleen and adrenal glands are stable in appearance. The pancreas is unremarkable given the lack of contrast. There has apparently been previous cholecystectomy. There is no evidence of nephrolithiasis. There is no evidence of hydronephrosis. There is atrophy of the left kidney, which measures 8 cm in length compared to 8.5 cm at the time the previous examination of 11/09/2017. There also appears to be some thinning of the cortex compared to the previous study. The right kidney is also slightly decreased in size from 8.9 cm at the time the previous study to 8.4 cm today. The urinary bladder is not distended. There is marked diverticulosis in the sigmoid colon without evidence of active diverticulitis. There is no evidence of bowel obstruction or appendicitis. There is no evidence of nephrolithiasis or ureterolithiasis. IMPRESSION: Renal atrophy, worse on the left. Pulmonary nodules in the left lower lobe, stable. Electronically signed by Chester Dozier 05/02/2019 11:34 AM
[2019-05-02 11:56] LABS: URINE SOURCE VOIDED
[2019-05-02 11:59] LABS: BILIRUBIN URINE NEGATIVE (NEGATIVE); BLOOD URINE NEGATIVE (NEGATIVE); COLOR YELLOW; GLUCOSE URINE NEGATIVE (NEGATIVE); KETONE URINE NEGATIVE (NEGATIVE); LEUKOCYTES URINE TRACE (NEGATIVE); NITRITE URINE NEGATIVE (NEGATIVE); PROTEIN URINE NEGATIVE (NEGATIVE); SP GRAVITY URINE 1.015; TURBIDITY URINE CLEAR (CLEAR); UR EPITHELIAL CELLS <10 /HPF (<10); URINE BACTERIA 1+ /HPF; URINE RBC <10 /HPF (<10); URINE WBC <10 /HPF (<10); UROBILINOGEN URINE NORMAL (NORMAL)
[2019-05-02 12:20] LABS: PROTEIN CREAT RATIO 0.1; UR CREAT RANDOM 121.8 mg/dL (11-20); UR PROT RANDOM 10.7 mg/dL
[2019-05-02 12:39] LABS: UR CREAT RANDOM 111.4 mg/dL (11-20); UR PROT RANDOM 8.8 mg/dL
[2019-05-02] MEDS: LOPRESSOR PO SCH (22:02)
[2019-05-02] MEDS: RISPERDAL PO SCH (22:02)
[2019-05-02] MEDS: LIPITOR PO SCH (22:03)
--- NOTE | 2019-05-02 22:18 | ECHO REPORT ---
ORDER DATE: 05/02/2019 MEASUREMENTS: Septal thickness 1.0, left ventricular internal diameter in diastole 4.9, posterior wall thickness 1.0, left ventricular internal diameter in systole 3.1, aortic root 3.0, left atrium 4.4. SUMMARY: 1. Technically difficult study due to limited acoustic window quality. Intravenous echo contrast agent Optison was utilized to enhance endocardial definition. 2. Aortic valve without evidence of structural abnormality and opens adequately on 2-dimensional images. Peak gradient across the valve is approximately 10 mmHg. There is trace aortic regurgitation. There is mild diastolic doming of anterior mitral leaflet demonstrated with some restriction in mitral valve opening evident. The peak gradient across the mitral valve is 11 mmHg. The mitral valve area by pressure halftime method is 1.9 cm2. Mild mitral stenosis is suggested. There is mild mitral regurgitation. Tricuspid valve without evidence of structural abnormality while pulmonic valve is not well demonstrated. There is trace tricuspid regurgitation. The estimated systolic PA pressure by Doppler is 65 mmHg suggesting moderate pulmonary hypertension. Aortic root is normal in size. 3. Normal left ventricular dimensions demonstrated. Estimated left ejection fraction appears to be at least 65%. No regional wall motion abnormalities evident. Left atrium is mildly enlarged. The right atrium, right ventricle are normal in size with grossly preserved right ventricular systolic function. 4. No pericardial effusion. 5. Appearance of inferior vena cava suggests normal central venous pressure. CONCLUSIONS: 1. Technically difficult study. 2. Mild mitral stenosis with mild mitral regurgitation. 3. Trace tricuspid regurgitation with moderate pulmonary hypertension by Doppler. 4. Estimated left ejection fraction at least 65%. cc: MD Jeff Barnes MD Bharat K. Vakharia, MD
[2019-05-02] MEDS: PERCOCET-5 PO PRN (22:45)
[2019-05-03] MEDS: HUMULIN R SUBQ SCH ×3 (06:28→16:25)
[2019-05-03 07:14] LABS: ALBUMIN 3.7 g/dL (3.5-5.0); CALCIUM 9.1 mg/dL (8.8-10.2); CREATININE 2.7 mg/dL (0.5-0.9); PHOSPHORUS 4.4 mg/dL (2.7-4.5); POTASSIUM 3.8 mmol/L (3.5-5.1)
[2019-05-03] MEDS: SYMBICORT 80/4.5 MICROGM INHALER INH SCH ×2 (08:28→19:11)
[2019-05-03 08:32] LABS: HEMATOCRIT 32.8 % (37.0-47.0); HEMOGLOBIN 9.5 g/dL (12.0-16.0); MCH 27.5 PG (27-31); MCV 94.8 FL (81-99); MPV 9.4 FL (7.4-10.4); RBC 3.46 XMIL (4.2-5.4); RDW 18.2 % (11.5-14.5); WBC 7.62 X1000 (4.8-10.8)
[2019-05-03] MEDS: LAMICTAL PO SCH ×2 (10:58→21:18)
[2019-05-03] MEDS: ASPIRIN PO SCH (10:58)
[2019-05-03] MEDS: EFFEXOR XR PO SCH (10:58)
[2019-05-03] MEDS: ELIQUIS PO SCH ×2 (10:59→21:19)
[2019-05-03] MEDS: ISORDIL PO SCH ×3 (10:59→21:19)
[2019-05-03] MEDS: PERCOCET-5 PO PRN (11:40)
--- NOTE | 2019-05-03 11:40 | PROGRESS NOTE ---
DATE: 05/03/2019 LOCATION: Room 431. SUBJECTIVE: Ms. Gamble is doing fairly well. Her vital signs are stable. She is alert. She is in no more chest pain. Her lab data revealed hemoglobin is 9.5, white count is normal. BUN is 19, creatinine is 2.7, which is a change from 96 and 3. Her blood sugar was 142 this morning. She had a CT scan of the abdomen done yesterday, which revealed renal atrophy, worse on the left side. Bladder was not distended. There is marked diverticulosis. She has pulmonary nodules in the left lower lobe. Nodules are stable. She also had a V/Q lung scan which was negative for pulmonary embolism. We are waiting for the Lexiscan or the stress test on her. We are going to continue with the current management. -8 cc: MD Haile Mchugh MD
[2019-05-03] MEDS: LANTUS INSULIN SUBQ SCH ×2 (11:58→21:19)
[2019-05-03] MEDS ORDERED: SORBITOL PO ONE (13:00)
[2019-05-03] MEDS: TOPROL XL PO SCH (13:37)
--- NOTE | 2019-05-03 16:14 | PROVIDER PROGRESS NOTE ---
Progress Note Subjective: patient lying in bed awake talking on the phone. She reports some nausea this a.m. Denies any shortness of breath chest pain or decreased appetite. Objective: Temperature 98.3, pulse 60, respirations 18, blood pressure 110/48, O2 sat 100% on 2 L nasal cannula. General: elderly white female lying in bed in no acute distress. HEENT: normocephalic, atraumatic, pupils equal and reactive. Trachea midline. Skin: warm and dry Neck: supple, no jvd appreciated. Cardiovascular: S1, S2, no murmur gallop noted. Respiratory: few wheezes to the anterior lower lobes. Abdominal: soft, obese, nondistended, tender to right upper quadrant. Bowel sounds hypoactive. : non inspected Extremities: No clubbing or cyanosis. Trace edema to bilateral lower extremities. Neurologic: alert and oriented to person, place and time. Labs: WBC 7.62, hemoglobin 9.5, hematocrit 32.8, platelet count 212, sodium 142, potassium 3.8, chloride 93, carbon dioxide 32, BUN 99, creatinine 2.7. Intake 680, output 1950. Impression: Acute on chronic kidney disease. FENA score 0.29% suggesting prerenal. Atrophic kidneys noted on imaging. Creatinine improved today with good urine output. Continue to monitor. Electrolytes and acid base balance. Stable. Constipation. Sorbitol ordered. Nutrition. Adequate. Ambulation. Walking in room. Medication review.
[2019-05-03] MEDS: LIPITOR PO SCH (21:18)
[2019-05-03] MEDS: LOPRESSOR PO SCH (21:19)
[2019-05-03] MEDS: RISPERDAL PO SCH (21:19)
[2019-05-04] MEDS: PERCOCET-5 PO PRN ×2 (01:56→12:08)
[2019-05-04] MEDS: HUMULIN R SUBQ SCH ×5 (04:43→21:39)
[2019-05-04 06:37] LABS: HEMATOCRIT 32.7 % (37.0-47.0); HEMOGLOBIN 9.8 g/dL (12.0-16.0); MCH 28.4 PG (27-31); MCV 94.8 FL (81-99); MPV 9.1 FL (7.4-10.4); RBC 3.45 XMIL (4.2-5.4); RDW 18.2 % (11.5-14.5)
[2019-05-04 07:08] LABS: CALCIUM 9.4 mg/dL (8.8-10.2); CREATININE 2.7 mg/dL (0.5-0.9); PHOSPHORUS 4.6 mg/dL (2.7-4.5); POTASSIUM 3.2 mmol/L (3.5-5.1)
[2019-05-04] MEDS: SYMBICORT 80/4.5 MICROGM INHALER INH SCH ×2 (07:16→19:31)
[2019-05-04] MEDS ORDERED: LEXISCAN ONE (09:29)
[2019-05-04] MEDS: ISORDIL PO SCH ×3 (11:52→21:39)
[2019-05-04] MEDS: EFFEXOR XR PO SCH (11:53)
[2019-05-04] MEDS: LAMICTAL PO SCH ×2 (11:54→21:40)
[2019-05-04] MEDS: ELIQUIS PO SCH ×2 (11:54→21:40)
[2019-05-04] MEDS: ASPIRIN PO SCH (11:55)
[2019-05-04] MEDS: LANTUS INSULIN SUBQ SCH ×2 (11:56→21:38)
[2019-05-04] MEDS: TOPROL XL PO SCH (11:59)
--- NOTE | 2019-05-04 12:50 | PROGRESS NOTE ---
DATE: 05/04/2019 Ms. Gamble continues to be slightly somewhat anemic. Hemoglobin 9.8. It is probably secondary from renal failure. Her blood sugar was 178. She is getting a Lexiscan done today. She has chronic renal failure. We will continue with the current management. Physical Examination is unchanged today. -3 cc: MD Haile Mchugh MD
--- NOTE | 2019-05-04 13:45 | Diag Imaging Result Document ---
PROCEDURE NAME: MYOCARDIAL PERF SCAN, STR/REST - 05/02/2019 PROCEDURE PERFORMED: Lexiscan Cardiolite stress. DESCRIPTION OF PROCEDURE: Lexiscan was infused per standard protocol. There was no chest pain. Stress electrocardiogram was negative for ischemia. Following Lexiscan infusion, Cardiolite was injected. There were 15.6 mCi of Cardiolite injected for the rest phase and 46.4 mCi of Cardiolite injected for the stress phase. Images were obtained in standard views. Images revealed chest wall and diaphragmatic attenuation. There is moderate grade, fixed defect in the anterior wall and in the left ventricular apex suggestive of scar. Cannot rule out attenuation defect. Left ventricular cavity size was normal. Left ventricular ejection fraction by gated SPECT was 75%. There is no evidence of ischemia. CONCLUSIONS: 1. No chest pain. 2. Negative Lexiscan stress electrocardiogram. 3. Myocardial perfusion images revealed no evidence of ischemia. 4. There is moderate size, fixed defect in the anterior wall as well as in the left ventricular apex which is [id number] grade, suggestive of scar. Cannot rule out attenuation defect. Wall motion was normal. Left ventricular ejection fraction 75%. There is no evidence of ischemia. cc: Jeff Castano MD
[2019-05-04] MEDS ORDERED: MILK OF MAGNESIA PO PRN (17:41)
[2019-05-04] MEDS ORDERED: LINZESS PO ONE (17:45)
[2019-05-04] MEDS: LINZESS PO SCH (19:01)
--- NOTE | 2019-05-04 19:50 | NEPHROLOGY PROGRESS NOTE ---
DATE: 05/04/2019 SUBJECTIVE: She states she feels fine. She is anticipating a stress test today and then discharge. OBJECTIVE: Vital Signs: Blood pressure 125/47, heart rate 62, respiration 18, afebrile. General: No acute distress. Skin: Warm and dry. Neck: Neck veins are not distended. Heart: Regular. Lungs: Equal. No crackles. Abdomen: Soft, obese, nontender. Bowel sounds present. Extremities: 1+ edema. No clubbing or cyanosis. IMPRESSION: Chronic kidney disease stage 4, at baseline. Electrolytes/acid base acceptable. Serum bicarbonate is elevated at 34, and she is not receiving intravenous bicarbonate. As such, this is likely secondary to pulmonary status. Chart review finds that this is roughly stable. cc: MD Haile Falcon MD
[2019-05-04] MEDS: RISPERDAL PO SCH (21:39)
[2019-05-04] MEDS: LIPITOR PO SCH (21:39)
[2019-05-04] MEDS: LOPRESSOR PO SCH (21:39)
[2019-05-05] MEDS: PERCOCET-5 PO PRN (01:25)
[2019-05-05] MEDS: HUMULIN R SUBQ SCH ×2 (06:31→12:19)
[2019-05-05] MEDS: LINZESS PO SCH (06:32)
[2019-05-05] MEDS: SYMBICORT 80/4.5 MICROGM INHALER INH SCH (07:21)
[2019-05-05 07:22] VITALS: BP 117/48
[2019-05-05] MEDS: TOPROL XL PO SCH (09:15)
[2019-05-05] MEDS: ISORDIL PO SCH (09:15)
[2019-05-05] MEDS: LANTUS INSULIN SUBQ SCH (09:15)
[2019-05-05] MEDS: ELIQUIS PO SCH (09:16)
[2019-05-05] MEDS: EFFEXOR XR PO SCH (09:16)
[2019-05-05] MEDS: ASPIRIN PO SCH (09:16)
[2019-05-05] MEDS: LAMICTAL PO SCH (09:16)
--- NOTE | 2019-05-05 10:25 | PROVIDER PROGRESS NOTE ---
Progress Note Subjective: Lying in bed with Head of bed elevated. Objective: Temp 98.2, pulse 61, respirations 16, blood pressure 120/56, 02 sat 95% on CPAP. General: elderly white female lying in bed in no acute distress. HEENT: normocephalic, atraumatic, pupils equal and reactive. Trachea midline. Skin: warm and dry Neck: supple, no jvd appreciated. Cardiovascular: S1, S2, soft systolic murmur, no gallop noted. Respiratory: few wheezes to the anterior lower lobes. Abdominal: soft, obese, nondistended, tender to right upper quadrant. Bowel sounds hypoactive. : non inspected Extremities: No clubbing or cyanosis. Trace edema to bilateral lower extremities. Neurologic: alert and oriented to person, place and time. Labs: not received yet. Intake 910, output 1600. Impression: Chronic kidney disease stage4. Her creatinine is around her baseline. We will follow her outpatient when she discharges. Electrolytes and acid base balance. Stable. Nutrition. Adequate. Ambulation. Walking in room. Medication review.
--- NOTE | 2019-05-05 12:20 | PROGRESS NOTE ---
DATE: 05/05/2019 SUBJECTIVE: Ms. Gamble is doing better. Her vital signs are stable. Electrolytes reveal that the potassium was 3.2. That was yesterday and she has been followed by Dr. Luna. She had a myocardial perfusion test, which was actually negative except for the scar, moderate-size fixed defect in the anterior wall as in the left ventricular apex, and she had ejection fraction of 75%. SUMMARY: We will continue with the current management and discharge her today. -2 cc: MD Haile Mchugh MD
--- NOTE | 2019-05-06 08:16 | DISCHARGE SUMMARY ---
ADMISSION DATE: 05/01/2019 DISCHARGE DATE: 05/05/2019 HISTORY: Ms. Gamble who is a 58-year-old white female, came to the emergency room with left-sided chest pain. She noted at home. It radiated to the left upper extremity and the jaw. She has known case of coronary artery disease, congestive heart failure, atrial fibrillation, hypertension, hyperlipidemia, pulmonary hypertension, COPD, obstructive sleep apnea, diabetes, bipolar disease, GERD syndrome, anxiety disorder, and chronic kidney disease. She also has pulmonary hypertension and hyperlipidemia. The course in the hospital was unremarkable. DISCHARGE MEDICATIONS: 1. Lamictal. 2. Methocarbamol, 3. Risperdal. 4. Effexor XR. 5. Atorvastatin. 6. Lantus 16 units twice a day. 7. Torsemide 75 mg twice a day. 8. Symbicort 2 puffs twice a day. 9. Potassium 20 mEq twice a day. 10. Chlorthalidone 25 mg daily. 11. Eliquis 5 mg twice a day. 12. Percocet 5. 13. Ventolin HFA. 14. Chlorthalidone. 15. Humalog 3 times a day. 16. Linzess 72 mg daily. DIAGNOSTIC: Chest x-ray revealed cardiomegaly with pulmonary vascular congestion. She had a V/Q lung scan which was negative for pulmonary embolism. Myocardial perfusion scan was negative except for anterior wall and apical scarring. Abdominal CT revealed renal atrophy, worse on the left side. There is no evidence of nephrolithiasis. LABORATORY DATA: Revealed mild anemia, hemoglobin 9.8 and hematocrit 32.7. D-dimer was 0.93. Glucose was 190. It was changed on a regular basis. Urinalysis was negative. Last sodium was 141, potassium 3.2, BUN 97, and creatinine 2.7. HOSPITAL COURSE: She did not have much chest pain after she was hospitalized. Workup was negative, and she will be discharged today. She usually follows with a caddy packer at [facility] and she will continue. I have told her to see Dr. Tovar in about 7 to 10 days. cc: MD Haile Mchugh MD
== END 2019-05-05 12:19 | disposition home or self-care (01) | DRG 313 ==
LOC: SUPCPDRO → ED 03:02 → 4N 07:53 → SUATTDRO 07:53
PROVIDERS: ADMIT Internal Medicine; ATTEND Internal Medicine

== ENCOUNTER 2019-07-21 00:17 | Inpatient (IN) ==
[2019-07-21 00:54] LABS: BASO# 0.02 X1000 (0.0-0.2); BASO% 0.1 % (0.0-0.8); EOS# 0.04 X1000 (0.0-0.7); EOS% 0.3 % (0.0-10.0); HEMOGLOBIN 9.9 g/dL (12.0-16.0); IMM GRAN# 0.04 X1000 (0.0-0.04); IMM GRAN% 0.3 % (0.0-0.5); LYMPH# 0.24 X1000 (1.2-3.4); LYMPH% 1.6 % (20.5-51.1); MCH 26.7 PG (27-31); MCV 88.9 FL (81-99); MONO# 0.32 X1000 (0.11-0.59); MONO% 2.1 % (1.7-9.3); MPV 8.9 FL (7.4-10.4); NEUT# 14.37 X1000 (1.4-6.5); NEUT% 95.6 % (42.2-75.2); PLT 300 X1000 (130-400); RBC 3.71 XMIL (4.2-5.4); RDW 16.8 % (11.5-14.5); WBC 15.03 X1000 (4.8-10.8)
[2019-07-21 01:12] LABS: ALBUMIN 3.6 g/dL (3.5-5.0); CALCIUM 9.2 mg/dL (8.8-10.2); CREATININE 2.5 mg/dL (0.5-0.9); POTASSIUM 3.3 mmol/L (3.5-5.1); TOTAL BILIRUBIN 0.51 mg/dL (0.20-1.00); TOTAL PROTEIN 7.2 g/dL (6.3-8.3)
[2019-07-21] MEDS ORDERED: NS 1,000 ML IV ONE ×2 (01:28→08:32)
[2019-07-21] MEDS ORDERED: ZOSYN 2.275 GM in NS 50 ML IV ONE (01:29)
[2019-07-21 01:43] LABS: INR 1.66
[2019-07-21 01:44] LABS: PTT 39.2 Seconds (22.3-41.8)
[2019-07-21 01:49] LABS: ALLEN TEST YES; BE 12.4 mmoll (-3.0-3.0); BLOOD TYPE ARTERIAL; HCO3-(ACT) 34.6 mmoll (20.0-26.0); METHB 0.3 % (0.0-1.5); O2(CT) 11.7 mL/dL (15.0-23.0); O2HB 97.1 % (95.0-99.0); PCO2(98.6) 41 mmHg (35-45); PO2(98.6) 110 mmHg (60-100); SAMPLE BLOOD; SAO2 99.5 % (95.0-100.0); THB 8.4 g/dL (11.5-17.4); pH(98.6) 7.55 (7.35-7.45)
[2019-07-21 01:50] LABS: MODALITY CANNULA
[2019-07-21] MEDS ORDERED: NS 2,500 ML IV ONE (01:55)
[2019-07-21 02:43] LABS: URINE SOURCE CATH
[2019-07-21 02:48] LABS: BILIRUBIN URINE NEGATIVE (NEGATIVE); BLOOD URINE LARGE (NEGATIVE); COLOR ORANGE; GLUCOSE URINE NEGATIVE (NEGATIVE); KETONE URINE NEGATIVE (NEGATIVE); LEUKOCYTES URINE LARGE (NEGATIVE); NITRITE URINE NEGATIVE (NEGATIVE); PH URINE 5.5; PROTEIN URINE 50 mg/dL (NEGATIVE); SP GRAVITY URINE 1.015; TURBIDITY URINE TURBID (CLEAR); UR EPITHELIAL CELLS <10 /HPF (<10); URINE BACTERIA 1+ /HPF; URINE RBC TNTC /HPF (<10); URINE WBC TNTC /HPF (<10); UROBILINOGEN URINE NORMAL (NORMAL)
[2019-07-21] MEDS ORDERED: VANCOMYCIN 1 GM/NS 1 GM/250 ML IVPB IV ONE (04:08)
--- NOTE | 2019-07-21 04:12 | PROVIDER DOCUMENTATION ---
This chart was entered by Keyanna Dennis Scribe, acting as scribe for Keaton Galvan MD. HPI-Neurological Disorder - General Chief Complaint: Altered Mental Status Stated Complaint: AMS Time Seen by Provider: 07/21/19 00:33 Source: patient, family Allergies/Adverse Reactions: Patient Allergies Allergy/AdvReac Type Severity Reaction Status Date / Time latex Allergy Intermediate RASH Verified 04/14/19 14:47 Home Medications: Home Medication List Medication Instructions Recorded Confirmed Last Taken Type Lamotrigine [Lamictal] 150 mg PO BID 04/10/12 05/01/19 04/14/19 History Metoprolol Succinate E.r. [Toprol 50 mg PO QAM 04/10/12 05/01/19 04/14/19 History Xl] Risperidone [Risperdal] 3 mg PO HS 04/10/12 05/01/19 1 Day Ago History ~04/13/19 Venlafaxine E.r. [Effexor Xr] 75 mg PO BID #0 05/10/13 05/03/19 05/02/19 History Atorvastatin Calcium [Lipitor] 40 mg PO HS 12/07/17 05/01/19 1 Day Ago History ~04/13/19 Isosorbide Dinitrate 40 mg PO TID 01/23/18 05/01/19 04/14/19 History Aspirin 81 mg PO DAILY 02/24/18 05/01/19 04/14/19 History Budesonide/Formoterol Inhaler 2 puff INH RTBID inhaler 04/05/18 05/01/19 04/14/19 Rx [Symbicort 80/4.5 Microgm Inhaler] Torsemide [Demadex] 75 mg PO BID #0 12/28/18 05/01/19 04/14/19 Rx Insulin Glargine [Lantus Insulin] 60 unit SUBQ BID 03/08/19 05/01/19 04/14/19 History Potassium Chloride E.r. [Klor-Con] 20 meq PO BID 03/08/19 05/01/19 04/14/19 History Chlorthalidone 25 mg PO DAILY 04/04/19 05/01/19 04/14/19 History Apixaban [Eliquis] 5 mg PO BID tab 04/07/19 05/01/19 04/14/19 Rx Oxycodone/APAP 5 mg/325 mg 1 ea PO Q8H PRN PRN tab 04/07/19 05/01/19 1 Day Ago Rx [Percocet-5] ~04/13/19 Albuterol Sulfate Inhaler 1 puff INH Q4H PRN PRN 05/01/19 05/01/19 Unknown History [Ventolin Hfa] Insulin Lispro [Humalog] 25 unit SQ TID 05/01/19 05/01/19 Unknown History Isosorbide Dinitrate 40 mg PO TID 05/01/19 05/01/19 Unknown History Linaclotide [Linzess] 72 mcg PO DAILY 05/01/19 05/01/19 Unknown History Metoprolol [Lopressor] 25 mg PO QHS 05/01/19 05/01/19 Unknown History Metoprolol [Lopressor] 25 mg PO QHS 05/01/19 05/01/19 Unknown History Torsemide 100 mg PO BID 05/01/19 05/01/19 Unknown History Albuterol 2.5MG/Ipratrop 0.5MG 3 ml INH Q2H PRN PRN neb 05/05/19 Unknown Rx [Duoneb (A & A)] - History of Present Illness-Neuro Nature of Presenting Problem: pt is a 59 yr old female presenting with family from home, pt is slow to respond to questions, only admits weakness/arm pain. pt denies any other complaints. family reports pt was at her normal baseline at 2100 when they spoke with her over the phone, at 2300 she did not answer when called and her daughter went to check on her, pt was found to be having difficulty ambulating and had slow/confused speech. family reports pt hx of UTIs and kidney failure, recent medication changes and strong smelling/dark urine. Onset/Duration: reports: unsure (last known normal 2100) Timing: reports: still present Context: reports: impaired speech, other (difficulty ambulating, confusion, decreased responsiveness-found by family) Character of Altered Mental Status: reports: confused, decreased responsiveness Any recent trauma/injury?: reports: none Character of Deficits: reports: impaired speech, decreased ability to walk New weakness or altered sensation location:: reports: general (diffuse) Cognitive Baseline: alert, oriented x3 Gait Baseline: walks without assistance Associated Symptoms: reports: confusion, trouble walking, weakness. denies: headache, numbness in legs/feet, seizures Similar Symptoms Previously?: Yes Recently seen or treated by another doctor?: No Review of Systems - Adult - REVIEW OF SYSTEMS - ADULT ROS:: limited per condition Constitutional: reports: no symptoms reported Eyes: reports: no symptoms reported Ears, Nose, Mouth & Throat: reports: no symptoms reported Cardiovascular: reports: no symptoms reported Respiratory: reports: no symptoms reported Gastrointestinal: reports: no symptoms reported Genitourinary: reports: frequent UTI's Musculoskeletal: reports: muscle weakness Integumentary: reports: no symptoms reported Neurological: denies: headache/migraines, seizure Psychiatric: reports: no symptoms reported Endocrine: reports: no symptoms reported Hematologic/Lymphatic: reports: no symptoms reported Allergic/Immunologic: reports: no symptoms reported All Other Systems: Reviewed and Negative Past History - Adult - PAST MEDICAL HISTORY-ADULT Review of Records: reports: Old Records Reviewed, Nursing Assessment Review, Medications Reviewed, Social history reviewed & non-contributory. Major Childhood Illnesses: reports: denies history Cardiovascular: reports: A-Fib, CAD, CHF, HTN, hyperlipidemia, VT, other (mitral stenosis) Respiratory: reports: COPD, lung disease, sleep apnea Gastrointestinal: reports: GERD, IBS, liver disease, pancreatitis, other (hiatal hernia) Obstetrical/Gynecological: reports: uterine/ovarian cancer (uterine) Genitourinary: reports: kidney disease Musculoskeletal: reports: denies history Neurological: reports: denies history Psychiatric: reports: anxiety, bipolar Endocrine/Immune: reports: Diabetes Other Conditions: reports: denies history - PRIOR SURGERIES/PROCEDURES Surgical/Procedure History: reports: appendectomy, cholecystectomy, cardiac stent (LAD), hysterectomy, tonsillectomy, other (facial reconstruction) - PRIOR HOSPITALIZATIONS Prior Hospitalizations: reports: for similar symptoms - IMMUNIZATION STATUS Childhood Immunizations: See Nurse Assessment Flu Vaccine: See Nurse Assessment - FAMILY HISTORY Family History: reviewed, not pertinent - SOCIAL HISTORY Smoking: quit greater than 1 year Substance Use: denies Living Situation: alone Physical Exam- Neurological - Physical Exam-Neuro Initial Vital Signs Reviewed: Yes General Appearance: no apparent distress, obese, slow to respond Eye Exam: bilateral eye: normal inspection, PERRL HENMT: normocephalic/atraumatic, other (dry oral mucosa) Head Injury: no evidence of injury Neck: supple, normal inspection Respiratory: lungs clear, normal breath sounds, no respiratory distress, no accessory muscle use Cardiovascular: normal peripheral pulses, regular rate, rhythm Abdominal Exam: normal bowel sounds, non tender, soft Lymphatic: no adenopathy Extremity: normal range of motion, 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 negative: sensory deficit Integumentary: normal color, normal turgor, warm/dry Psych/Mental Status: normal mood/affect - Glascow Coma Scale Best Eye Response: (4) open spontaneously Best Verbal Response: (5) oriented Best Motor Response: (6) obeys commands Total Glascow Score: 15 Progress - PLAN OF CARE/RESULTS Progress/Plan/Lab Results: Vital Signs - 8 hr 07/21/19 00:18 07/21/19 01:10 Temperature 99.5 F Pulse Rate 86 93 H Respiratory Rate 18 24 Blood Pressure 80/47 O2 Sat by Pulse Oximetry 94 L 07/21/19 00:38 Influenza Screen - Final Nasopharyngeal Laboratory Results - last 24 hr 07/21/19 07/21/19 07/21/19 00:35 00:35 00:35 WBC 15.03 H RBC 3.71 L Hgb 9.9 L Hct 33.0 L MCV 88.9 MCH 26.7 L MCHC 30.0 L RDW Std Deviation 16.8 H Plt Count 300 MPV 8.9 Immature Gran % (Auto) 0.3 Neut % (Auto) 95.6 H Lymph % (Auto) 1.6 L Jenkins % (Auto) 2.1 Eos % (Auto) 0.3 Baso % (Auto) 0.1 Immature Gran # (Auto) 0.04 Neut # (Auto) 14.37 H Lymph # (Auto) 0.24 L Jenkins # (Auto) 0.32 Eos # (Auto) 0.04 Baso # (Auto) 0.02 PT INR PTT (Actin FS) Specimen Type Sample Site pH pCO2 pO2 HCO3 Base Excess Oxyhemoglobin ABG O2 Sat (Calculated) ABG O2 Saturation ABG Carboxyhemoglobin ABG Methemoglobin Pedro Test A-a O2 Difference Total Hemoglobin Lactate Liter Flow Blood Gas Modality FiO2 % Sodium 134 L Potassium 3.3 L Chloride 86 L Carbon Dioxide 31 Anion Gap 17 BUN 76 H Creatinine 2.5 H Estimated GFR/1.73 m2 20 BUN/Creatinine Ratio 30 Glucose 179 H Calculated Osmolality 295 Calcium 9.2 Total Bilirubin 0.51 AST 24 ALT 19 Alkaline Phosphatase 113 H Ammonia 27 Creatine Kinase Troponin T High Sens Total Protein 7.2 Albumin 3.6 Globulin 3.6 Albumin/Globulin Ratio 1.0 Plasma Lactate Urine Source Urine Color Urine Turbidity Urine pH Ur Specific [place] Urine Protein Ur Glucose (Stick) Ur Ketones (Stick) Urine Blood Urine Nitrite Urine Bilirubin Urobilinogen Dipstick Urine Leukocytes Urine WBC (Auto) Urine RBC (Auto) U Epithel Cells (Auto) Urine Bacteria (Auto) 07/21/19 07/21/19 07/21/19 00:35 00:35 00:35 WBC RBC Hgb Hct MCV MCH MCHC RDW Std Deviation Plt Count MPV Immature Gran % (Auto) Neut % (Auto) Lymph % (Auto) Jenkins % (Auto) Eos % (Auto) Baso % (Auto) Immature Gran # (Auto) Neut # (Auto) Lymph # (Auto) Jenkins # (Auto) Eos # (Auto) Baso # (Auto) PT 20.0 H INR 1.66 PTT (Actin FS) 39.2 Specimen Type Sample Site pH pCO2 pO2 HCO3 Base Excess Oxyhemoglobin ABG O2 Sat (Calculated) ABG O2 Saturation ABG Carboxyhemoglobin ABG Methemoglobin Pedro Test A-a O2 Difference Total Hemoglobin Lactate Liter Flow Blood Gas Modality FiO2 % Sodium Potassium Chloride Carbon Dioxide Anion Gap BUN Creatinine Estimated GFR/1.73 m2 BUN/Creatinine Ratio Glucose Calculated Osmolality Calcium Total Bilirubin AST ALT Alkaline Phosphatase Ammonia Creatine Kinase 119 Troponin T High Sens Total Protein Albumin Globulin Albumin/Globulin Ratio Plasma Lactate 4.2 H* Urine Source Urine Color Urine Turbidity Urine pH Ur Specific [place] Urine Protein Ur Glucose (Stick) Ur Ketones (Stick) Urine Blood Urine Nitrite Urine Bilirubin Urobilinogen Dipstick Urine Leukocytes Urine WBC (Auto) Urine RBC (Auto) U Epithel Cells (Auto) Urine Bacteria (Auto) 07/21/19 07/21/19 07/21/19 00:35 01:40 02:00 WBC RBC Hgb Hct MCV MCH MCHC RDW Std Deviation Plt Count MPV Immature Gran % (Auto) Neut % (Auto) Lymph % (Auto) Jenkins % (Auto) Eos % (Auto) Baso % (Auto) Immature Gran # (Auto) Neut # (Auto) Lymph # (Auto) Jenkins # (Auto) Eos # (Auto) Baso # (Auto) PT INR PTT (Actin FS) Specimen Type ARTERIAL Sample Site R RADIAL pH 7.55 H pCO2 41 pO2 110 H HCO3 34.6 H Base Excess 12.4 H Oxyhemoglobin 97.1 ABG O2 Sat (Calculated) 11.7 L ABG O2 Saturation 99.5 ABG Carboxyhemoglobin 2.10 ABG Methemoglobin 0.3 Pedro Test YES A-a O2 Difference 67.0 Total Hemoglobin 8.4 L Lactate 2.80 H Liter Flow 3.0 Blood Gas Modality CANNULA FiO2 % 32.0 Sodium Potassium Chloride Carbon Dioxide Anion Gap BUN Creatinine Estimated GFR/1.73 m2 BUN/Creatinine Ratio Glucose Calculated Osmolality Calcium Total Bilirubin AST ALT Alkaline Phosphatase Ammonia Creatine Kinase Troponin T High Sens 117 H* Total Protein Albumin Globulin Albumin/Globulin Ratio Plasma Lactate Urine Source CATH Urine Color ORANGE Urine Turbidity TURBID Urine pH 5.5 Ur Specific [place] 1.015 Urine Protein 50 A Ur Glucose (Stick) NEGATIVE Ur Ketones (Stick) NEGATIVE Urine Blood LARGE A Urine Nitrite NEGATIVE Urine Bilirubin NEGATIVE Urobilinogen Dipstick NORMAL Urine Leukocytes LARGE A Urine WBC (Auto) TNTC A Urine RBC (Auto) TNTC A U Epithel Cells (Auto) <10 Urine Bacteria (Auto) 1+ Orders Category Date Time Status Cardiac Monitoring DIRECTED Care 07/21/19 01:23 Active IV Insertion ORDERED Care 07/21/19 01:23 Completed Notify MD of + Sepsis Screen NOW Care 07/21/19 01:23 Active Notify Physician As Ordered Care 07/21/19 01:23 Active CHEST-PORTABLE [RAD] Stat Exams 07/21/19 00:[address] HEAD W/O CONTRAST [CT] Stat Exams 07/21/19 01:02 Taken ABG [RESP] Routine Lab 07/21/19 01:40 Completed AMMONIA [CHEM] Stat Lab 07/21/19 00:35 Completed BLOOD CULTURE [BLDCUL] Stat Lab 07/21/19 00:35 Results CBC WITH DIFF [HEME] Stat Lab 07/21/19 00:35 Completed CK PROFILE [SP CHEM] Stat Lab 07/21/19 00:35 Completed COMPREHENSIVE METABOLIC PANEL [CHEM] Stat Lab 07/21/19 00:35 Completed INFLUENZA SCREEN A/B Stat Lab 07/21/19 00:38 Completed LACTATE, PLASMA [CHEM] Q3H Lab 07/21/19 03:17 Uncollected LACTATE, PLASMA [CHEM] Q3H Lab 07/21/19 06:17 Uncollected LACTATE, PLASMA [CHEM] Stat Lab 07/21/19 00:35 Completed PROTIME WITH INR [COAG] Stat Lab 07/21/19 00:35 Completed PTT [COAG] Stat Lab 07/21/19 00:35 Completed TROPONIN T HIGH SENSITIVITY Stat Lab 07/21/19 00:35 Completed UA NIMS W/REFLEX CULT [URINALYSIS] Stat Lab 07/21/19 02:00 Completed URINE CULTURE [RM] Routine Lab 07/21/19 04:04 Ordered 0.9% Sodium Chloride Inj [Ns] 1,000 ml Med 07/21/19 01:28 Discontinued IV 999 mls/hr 0.9% Sodium Chloride Inj [Ns] 2,500 ml Med 07/21/19 01:55 Active IV 999 mls/hr Piperacillin/Tazobactam [Zosyn] 2.275 gm Med 07/21/19 01:29 Discontinued 0.9% Sodium Chloride Inj [Ns] 50 ml IV NOW Vancomycin 1 gm/Ns Med 07/21/19 04:08 Active 1 gm in 250 ml IV NOW Oxygen Device Stat Oth 07/21/19 01:23 Active Result Diagrams: 07/21/19 00:35 07/21/19 00:35 - EKG 1 Time of EKG reading by physician:: 02:07 EKG Read and Signed by:: Keaton Galvan EKG Interpretation (*Must complete 3 of following elements*): Abnormal Rate: 84 Rhythm: nsr ST Wave: non-specific ST changes - CT/MRI 1 CT Study: Head Impression: Normal, See EMR Report (no acute findings.) - CONSULTS/PCP/HOSPITALIST Notification #1 *Consult/PCP/Hospitalist*: Dr Ba Time Discussed: 04:10 Consult Disposition: Will see in ED, Admit Departure - Departure Date of Disposition Decision: 07/21/19 Time of Disposition Decision: 03:00 DIAGNOSIS: Toxic metabolic encephalopathy, UTI (urinary tract infection), Sepsis, Renal insufficiency, Hypokalemia Disposition: ADMITTED INPATIENT 09 Certified Medical Emergency: Emergent Condition: Fair Referrals and Follow-Ups: Haile Tovar MD [Primary Care Provider] - - Critical Care Note This patient required my direct & personal management of CC.: Yes Total Time (mins): 35 Critical Care Statement: This patient required my direct personal management to treat or rule out processes, the absence of which, could potentiallly result in sudden, clinically significant life or limb threatening deterioration. Attestation - Physician/ JAVIER Attestation Patient care was provided by Advanced Practice Provider:: No The physician spent face to face time with patient:: Yes Advanced Practice Provider documentation review:: Supervising physician onsite and consulted in the evaluation and care of this patient. The physician did have a face to face encounter with the patient. Sepsis: Tissue Perfusion Assmt - Physical Exam Assessment Date: 07/21/19 Time Assessment Initialized: 03:02 Vital Signs: Last Vital Signs Temp 99.5 F 07/21/19 00:18 Pulse 93 H 07/21/19 01:10 Resp 24 07/21/19 01:10 BP 80/47 07/21/19 00:18 Pulse Ox 94 L 07/21/19 00:18 Height 5 ft 5 in Weight 115.666 kg 07/21/19 03:02 See nurses note: Lung Sounds:: lungs clear Heart Sounds:: Regular Capillary Refill Time: Less Than 2 Seconds Peripheral Pulse Evaluation:: radial (R): 4+, radial (L): 4+, dorsalis-pedis (R): 4+, dorsalis-pedis (L): 4+ Skin Exam:: flushed - Impression Impression:: Tissue Perfusion Adequate - Plan Plan:: See Orders This chart was documented by the indicated scribe, (Keyanna Dennis Scrsergio) and accurately reflects the services I performed and decisions made by me, Keaton Galvan MD, as attested by the provider's signature.
--- NOTE | 2019-07-21 06:24 | Diag Imaging Result Doc PS360 ---
CHEST-PORTABLE - 07/21/2019 INDICATION: AMS COMPARISON: 05/02/2019 FINDINGS: The lungs are normally expanded and clear. Heart size and mediastinal contours are normal. No pneumothorax or pleural effusion. IMPRESSION: Negative exam. Electronically signed by Rajat Zamora 07/21/2019 6:21 AM
--- NOTE | 2019-07-21 07:08 | HISTORY AND PHYSICAL ---
CHIEF COMPLAINT: Altered mentation. HISTORY OF PRESENT ILLNESS: This is a 59-year-old female who came from home with altered mentation. She is a diabetic. I believe she has CAD history. She is also on chronic pain medications. In any case, she came from home. She responded to questions, admits to weakness, arm pain. She was normal at baseline around 2100. She has had a history of UTIs, and she had strong smelling dark urine, and she has had urosepsis before. Her initial blood pressure was 80/47, temperature 99.5 degrees. Her white count is 15,000. She has chronic renal insufficiency. Her creatinine is around there and lactate 4.2, so she did undergo sepsis protocol. Her troponin was elevated, but she has renal insufficiency consistent with UTI with sepsis. PAST MEDICAL HISTORY: 1. Again, type 2 diabetes insulin dependent. 2. CAD status post stent. 3. Dyslipidemia. 4. Atrial fibrillation. She has had an ablation apparently. 5. COPD. 6. GERD. 7. Sleep apnea. 8. Pulmonary hypertension. 9. Chronic renal failure stage 3. 10. Bipolar disorder. PAST SURGICAL HISTORY: 1. Cholecystectomy. 2. Appendectomy. 3. Hysterectomy. 4. Ankle surgery. SOCIAL HISTORY: No tobacco or ethanol. ALLERGIES: Latex. FAMILY HISTORY: Positive for diabetes, also renal insufficiency. MEDICATIONS: Her medications are being compiled. I do not have a verified list. Reportedly, Lopressor, aspirin, chlorthalidone, Effexor, isosorbide dinitrate, Klor-Con, Lamictal, Lantus, Linzess, Lipitor, Risperdal, torsemide, albuterol, apixaban. REVIEW OF SYSTEMS: Otherwise negative times a 10-point review of systems. PHYSICAL EXAMINATION: VITAL SIGNS: Current blood pressure, her most recent was 120/70, heart rate 93, respiratory rate 24, temperature 99.5 degrees, and 94% oxygen saturation on 3 liters. GENERAL: A well-developed female in no acute distress. HEENT: Head exam was normocephalic, atraumatic. Eye exam, pupils are equal, round, reactive to light. Extraocular movements were intact. Ear, nose, and throat exam, she had moist mucous membranes. NECK: Exam was supple. CARDIOVASCULAR: Regular rate and rhythm. PULMONARY: Bilateral breath sounds, diminished at the bases. GASTROINTESTINAL: Soft, nontender, nondistended. Bowel sounds are positive. She had no suprapubic tenderness. No CVA tenderness. NEUROLOGIC: Unremarkable except for the fact that she had kind of slowness to respond. LABORATORY DATA: Her white count is 15,000, hemoglobin and hematocrit are 9 and 33, platelets 300,000. INR 1.6. Her pH is 7.55, pCO2 of 41 PaO2 of 110. Potassium 3.3, creatinine of 2.5, which is close to baseline. Troponin 117. Plasma lactate 4.2. White blood cells and red blood cells in urine are too numerous to count. PROBLEM LIST: This is a 59-year-old female with diabetes, hypertension, presenting with urinary tract infection and sepsis. 1. Urinary tract infection and sepsis. We will continue empiric antibiotics. Follow up on urine and blood cultures. Follow up on lactate levels after her volume resuscitation, make sure her lactate has come down. 2. Encephalopathy, likely related to sepsis. We will continue to monitor. Her head CT, I believe, was unremarkable. 3. Type 2 diabetes. We will continue to follow her blood sugars, sliding scale and fasting blood sugars. 4. Coronary artery disease. She does have a mildly elevated troponin, but she has got chronic renal failure which is at baseline. We will trend her troponins. This may be just a demand mismatch issue from her hypotension and multiple other issues. She had a myocardial perfusion scan in April that, I guess, was inconclusive, but we will continue to follow. EKG is relatively nonspecific regarding that. cc: Dino Ba MD
--- NOTE | 2019-07-21 07:32 | Diag Imaging Result Doc PS360 ---
EXAM: CT HEAD W/O CONTRAST INDICATION: altered mental status TECHNIQUE: This exam was performed using automated exposure control, adjustment of mA or kV according to patient size, and/or use of iterative reconstruction technique. COMPARISON: 04/04/2019 FINDINGS: There is suggestion of minimal periventricular and subcortical white matter microangiopathy, stable. There is no definite acute infarct given the limited sensitivity of CT versus MRI. There is no discrete intracranial mass, mass effect, or intracranial hemorrhage. The surrounding soft tissues and bony structures are essentially unremarkable. IMPRESSION: Stable minimal chronic appearing white matter changes. No definite acute intracranial pathology. Electronically signed by Henri March 07/21/2019 7:30 AM
--- NOTE | 2019-07-21 07:51 | EKG Report ---
Test Performed on : 07/21/2019 02:07:59 AM Test Reason : AMS Blood Pressure : / mmHG Vent. Rate : 084 BPM Atrial Rate : 084 BPM P-R Int : 190 ms QRS Dur : 072 ms QT Int : 382 ms P-R-T Axes : 072 084 060 degrees QTc Int : 451 ms Normal sinus rhythm. Low voltage QRS Nonspecific ST abnormality Abnormal ECG When compared with ECG of 01-MAY-2019 06:05, (Unconfirmed) Non-specific change in ST segment in Lateral leads Unconfirmed Result
[2019-07-21] MEDS: HUMULIN R SUBQ SCH ×4 (08:32→21:00)
[2019-07-21] MEDS: TYLENOL PO PRN ×2 (10:45→21:15)
[2019-07-21] MEDS: ZOSYN 2.25 GM in NS 50 ML IV SCH ×3 (11:46→21:10)
[2019-07-21] MEDS: ZOFRAN IV PRN ×2 (11:50→16:28)
--- NOTE | 2019-07-21 18:02 | PROGRESS NOTE ---
DATE: 07/21/2019 SUBJECTIVE: Ms. Gamble was admitted with altered mental status. The patient does have a UTI, chronic kidney disease. Her troponin is elevated. The patient has a longstanding diabetes. Admission history and physical noted. I evaluated the patient. The patient seems to be doing better. When I evaluated her, she was much more alert and awake. No nausea or vomiting. OBJECTIVE: Vital Signs: Noted. Neck: Supple. Lungs: Bibasilar crepitations. Heart: S1 and S2 heard. Abdomen: Soft, globular. Bowel sounds present. Extremities: Minimal swelling in the legs. 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 Able to move all 4 limbs. PLAN: We will continue home medicine, IV antibiotics, BiPAP as per home settings. Overall plan discussed at length with the patient. Repeat blood work in the morning. cc: Haile Tovar MD
[2019-07-21] MEDS: HUMALOG SUBQ SCH (18:22)
[2019-07-21] MEDS ORDERED: DUONEB (A & A) INH PRN (18:22)
[2019-07-21] MEDS ORDERED: VENTOLIN HFA INH PRN (18:22)
[2019-07-21] MEDS ORDERED: DEMADEX PO SCH (21:00)
[2019-07-21] MEDS: LANTUS INSULIN SUBQ SCH (21:15)
[2019-07-21] MEDS: HYGROTON PO SCH (21:15)
[2019-07-21] MEDS: KLOR-CON PO SCH (21:15)
[2019-07-21] MEDS ORDERED: NS 1,000 ML ONE (21:16)
[2019-07-21] MEDS ORDERED: PERCOCET-10 PO ONE (21:49)
--- NOTE | 2019-07-21 22:05 | CARDIOLOGY CONSULTATION ---
DATE: 07/21/2019 CHIEF COMPLAINT: Altered mental status. HISTORY OF PRESENT ILLNESS: Ms. Gamble is a 59-year-old white female with a history of coronary artery disease, diabetes, and previous PCI, who presented for the above noted issues. The patient reports she has not felt well over the last week, feeling fatigued and weak. She denies any significant pain complaints. She has been somewhat short of breath. She has noted over the last 24 to 48 hours that she has had subjective fevers and chills at home. She reports compliance with her medications. PAST MEDICAL HISTORY: Significant for: 1. Coronary artery disease. Last cardiac catheterization was in [address] Perez. On that study, she had separate ostia for LAD and circumflex. She had a patent proximal LAD stent, circumflex was normal, and RCA was normal. Her last myocardial perfusion scan was performed in April 2019, and showed a moderate-sized fixed defect in the anterior wall as the apex, with normal wall motion. Ejection fraction was 75%. She had an echocardiogram at that same time demonstrating an EF of 65%, with no obvious wall motion abnormalities. 2. COPD. 3. Diastolic heart failure. 4. Pulmonary hypertension. 5. Atrial fibrillation. 6. Hypertension. 7. Hyperlipidemia. 8. Diabetes. 9. Chronic kidney disease. 10. Obesity with sleep apnea. SOCIAL HISTORY: No tobacco or alcohol use. FAMILY HISTORY: Significant for diabetes as well as chronic kidney disease. REVIEW OF SYSTEMS: A 10 system review of systems is negative except for those things mentioned in HPI. PHYSICAL EXAMINATION: Vital signs: The patient had a T-max of 100.4 degrees here, heart rate of 80, blood pressure 145/69. General: She is in no acute distress. HEENT: Oropharynx is moist. Poor dentition. Eye examination is pink conjunctivae, white sclerae. Neck: Examination shows no obvious thyromegaly or thyroid tenderness. Cardiovascular: She sounds to be in a regular rate and rhythm. She has no obvious murmurs. She has no S3. She has no lower extremity edema. Chest: Clear bilaterally. She has no increased work of breathing. Abdomen: Soft, nontender, and nondistended. She has no obvious organomegaly. Skin: Warm and dry throughout. She has some mild lacerations diffusely on her upper and lower extremities that appear clean and dry. Neurological: She is moving all extremities well with no lateralizing deficits. PERTINENT DATA: Her chest x-ray shows no obvious acute abnormalities. She had a head CT performed that shows stable minimal chronic appearing white matter changes with no acute findings noted. She had an electrocardiogram interpreted by me that shows sinus rhythm, with no ischemic changes or evidence of infarct. Her white count is 15, hematocrit 33, platelet count is 300,000. She has a left shift noted. Sodium is 134, potassium is 3.3, BUN 76, creatinine is 2.5. Her troponin, a high sensitivity study, was 117 on presentation and has trended between 114 and 118. Her lactate was elevated at 4.2 on presentation. She has been noted to have systolic blood pressures as low as 80/47. ASSESSMENT: Ms. Gamble is a 59-year-old female who presents with a picture consistent with sepsis. Her urinalysis would suggest a urinary source. PLAN: At this point, I would not recommend further ischemic evaluation. We will check an echocardiogram to evaluate for wall motion abnormalities. If this is unremarkable, then the most likely etiology to her troponin elevation would be sepsis with hypotension and renal insufficiency. If the echocardiogram is unremarkable, we will likely sign off at that time. cc: MD Haile Burdick MD
[2019-07-21] MEDS: DEMADEX PO SCH (22:17)
[2019-07-21] MEDS: LAMICTAL PO SCH (22:18)
[2019-07-21] MEDS: TOPROL XL PO SCH (22:20)
[2019-07-21] MEDS: RISPERDAL PO SCH (22:20)
[2019-07-21] MEDS: LIPITOR PO SCH (22:20)
[2019-07-21] MEDS: ELIQUIS PO SCH (22:21)
[2019-07-21] MEDS: ISORDIL PO SCH (22:21)
[2019-07-22] MEDS: ZOSYN 2.25 GM in NS 50 ML IV SCH ×4 (02:32→23:46)
[2019-07-22 06:50] LABS: BASO# 0.03 X1000 (0.0-0.2); BASO% 0.2 % (0.0-0.8); EOS# 0.19 X1000 (0.0-0.7); EOS% 1.3 % (0.0-10.0); HEMATOCRIT 31.8 % (37.0-47.0); HEMOGLOBIN 9.2 g/dL (12.0-16.0); IMM GRAN# 0.03 X1000 (0.0-0.04); IMM GRAN% 0.2 % (0.0-0.5); LYMPH# 0.48 X1000 (1.2-3.4); LYMPH% 3.4 % (20.5-51.1); MCH 26.6 PG (27-31); MCHC 28.9 g/dL (33-37); MCV 91.9 FL (81-99); MONO# 1.06 X1000 (0.11-0.59); MONO% 7.5 % (1.7-9.3); MPV 9.4 FL (7.4-10.4); NEUT# 12.43 X1000 (1.4-6.5); NEUT% 87.4 % (42.2-75.2); PLT 209 X1000 (130-400); RBC 3.46 XMIL (4.2-5.4); RDW 16.7 % (11.5-14.5); WBC 14.22 X1000 (4.8-10.8)
[2019-07-22 07:11] LABS: HEMOGLOBIN A1C 7.6 % (4.8-6.0)
[2019-07-22 07:24] LABS: ALB/GLOB RATIO 0.7; ALBUMIN 2.9 g/dL (3.5-5.0); CALCIUM 8.5 mg/dL (8.8-10.2); CREATININE 2.3 mg/dL (0.5-0.9); POTASSIUM 3.6 mmol/L (3.5-5.1); TOTAL BILIRUBIN 0.41 mg/dL (0.20-1.00); TOTAL PROTEIN 6.9 g/dL (6.3-8.3)
[2019-07-22] MEDS: SYMBICORT 160/4.5 MICROGM INHALER INH SCH (07:30)
[2019-07-22 07:40] LABS: LYMPHS 4 % (21-51); MONO 6 % (1-9); SEGS 90 % (42-75)
[2019-07-22] MEDS: HUMALOG SUBQ SCH ×3 (08:00→17:00)
--- NOTE | 2019-07-22 08:31 | PROGRESS NOTE ---
DATE: 07/22/2019 SUBJECTIVE: Ms. Gamble is doing fair. The patient does get short of breath with undue exertion. The patient did have a migraine headache last night, responded to her pain medications. No typical chest pain. No high-grade fever or chills. Her mentation seems to be getting better. The patient is tolerating medication well. No major hypoglycemic episode. The patient admitted with altered mental status. Found to have UTI. Admission history and physical noted. OBJECTIVE: Vital Signs: Blood pressure 168/69, pulse 82, respirations 20, temperature normal. Neck: Supple. No JVD. Lungs: Bibasilar crepitations. Heart: S1 and S2 heard. Abdomen: Soft. No distention. Globular bowel sounds present. SEWING DEPARTMENT SUPERVISOR: Alert, awake. Able to move all 4 limbs. Extremities: Patient does have minimal swelling both the legs. LABORATORY DATA: Done today, WBC count 14.22, hemoglobin 9.2, hematocrit 31.8. Platelet count 209,000. CONSIDERATION: Patient admitted with metabolic encephalopathy. The patient did have urinary tract infection. Her troponin was elevated. The patient does have chronic kidney disease, chronic obstructive pulmonary disease and cor pulmonale. We will continue IV antibiotics. The patient does have chronic respiratory failure on BiPAP. Will resume it. Morbid obesity, diabetes mellitus. The patient had elevated troponin. Field Producer following patient with us. Overall plan discussed with the patient. Continue current treatment. Patient is waiting for PVC bed if clinical condition permits. The plan is to discharge patient home on Thursday. cc: Haile Tovar MD
[2019-07-22] MEDS: LANTUS INSULIN SUBQ SCH ×2 (09:00→20:32)
[2019-07-22] MEDS: HUMULIN R SUBQ SCH ×4 (09:17→20:31)
[2019-07-22] MEDS: ASPIRIN PO SCH (11:47)
[2019-07-22] MEDS: DEMADEX PO SCH ×2 (11:48→20:32)
[2019-07-22] MEDS: ELIQUIS PO SCH ×2 (11:49→20:33)
[2019-07-22] MEDS: HYGROTON PO SCH (11:49)
[2019-07-22] MEDS: ISORDIL PO SCH ×3 (11:49→17:01)
[2019-07-22] MEDS: LAMICTAL PO SCH ×2 (11:50→20:32)
[2019-07-22] MEDS: KLOR-CON PO SCH ×2 (11:50→20:33)
[2019-07-22] MEDS: LINZESS PO SCH (11:51)
[2019-07-22] MEDS: PERCOCET-5 PO PRN (11:59)
--- NOTE | 2019-07-22 13:17 | ECHO REPORT ---
ORDER DATE: 07/22/2019 INDICATION FOR THE STUDY: Troponin elevation. FINDINGS: 1. Right atrium appears normal size. 2. Mild tricuspid regurgitation. RV systolic pressure of 57 suggesting pulmonary hypertension. 3. Normal RV size and systolic function. 4. Trace pulmonic insufficiency. 5. Normal left atrial size at 3.9 cm. 6. No mitral valve prolapse. Mild mitral regurgitation. Suggestion of mild mitral stenosis with mean gradient of 6.8mmHg 7. Normal LV size, end-diastolic dimension of 4.6 cm. Mild left ventricular hypertrophy with a posterior and interventricular septal wall thickness 1.2 cm each. Normal LV systolic function. The estimated EF is 60% to 65% with normal wall motion. 8. Aortic valve appears to open reasonably well on 2-dimensional imaging. There is a mean gradient of 9.5 across the valve with a valve area of 2.8 cm2. I do not believe based on visual inspection of valve that there is any significant degree of aortic stenosis. 9. The aorta appears normal in visualized segments. 10. There is no clear evidence of pericardial effusion. On some views, suggestion of pericardial fat. cc: MD Haile Burdick MD MTDD
[2019-07-22] MEDS: LIPITOR PO SCH (20:33)
[2019-07-22] MEDS: RISPERDAL PO SCH (20:33)
[2019-07-22] MEDS: TOPROL XL PO SCH (20:33)
--- NOTE | 2019-07-22 20:49 | CARDIOLOGY PROGRESS NOTE ---
DATE: 07/22/2019 SUBJECTIVE: Ms. Gamble reports she feels better. She appears improved today and more alert. OBJECTIVE: Vital signs: She was febrile to 100.4 yesterday morning at 10. Her heart rate is in the 90s to low 100s. Blood pressure 134/44. General: No acute distress. Cardiovascular: She sounds to be in a regular rate and rhythm. She has no murmurs. She has no S3. She has no lower extremity edema. Respiratory: Her chest exam sounds relatively clear with poor inspiratory effort. Abdomen: Soft, nontender. PERTINENT DATA: Sodium 141, potassium 3.6, BUN 71, creatinine 2.3. Her troponins were elevated and flat in a 114 to 118 range. She had an echocardiogram that showed a preserved ejection fraction of 60% to 65% with no wall motion abnormalities. She does have evidence of mild mitral stenosis. ASSESSMENT: Ms. Gamble is a 59-year-old female who presented septic with hypotension and renal insufficiency. PLAN: Her troponin elevation is secondary to supply-demand mismatch and is due to hypotension, sepsis and renal insufficiency. This is not acute coronary syndrome. She has a preserved ejection fraction. At this point, I do not have any further cardiovascular recommendations, and we will sign off. Please contact us if we can be of further assistance. cc: MD Haile Burdick MD
[2019-07-23] MEDS: ZOSYN 2.25 GM in NS 50 ML IV SCH ×4 (06:22→23:23)
[2019-07-23] MEDS: HUMULIN R SUBQ SCH ×4 (06:25→21:17)
[2019-07-23] MEDS: SYMBICORT 160/4.5 MICROGM INHALER INH SCH (07:59)
[2019-07-23] MEDS: DEMADEX PO SCH ×2 (08:33→20:54)
[2019-07-23] MEDS: LAMICTAL PO SCH ×2 (08:33→20:54)
[2019-07-23] MEDS: ISORDIL PO SCH ×3 (08:34→17:46)
[2019-07-23] MEDS: ELIQUIS PO SCH ×2 (08:34→20:54)
[2019-07-23] MEDS: HYGROTON PO SCH (08:34)
[2019-07-23] MEDS: LINZESS PO SCH (08:34)
[2019-07-23] MEDS: KLOR-CON PO SCH ×2 (08:34→20:54)
[2019-07-23] MEDS: ASPIRIN PO SCH (08:34)
[2019-07-23] MEDS: LANTUS INSULIN SUBQ SCH ×2 (08:45→20:54)
[2019-07-23] MEDS: HUMALOG SUBQ SCH ×3 (08:46→17:47)
[2019-07-23] MEDS: PERCOCET-5 PO PRN (18:53)
--- NOTE | 2019-07-23 20:11 | PROGRESS NOTE ---
DATE: 07/23/2019 SUBJECTIVE: A 59-year-old white female was admitted on 07/21/2019 for urinary tract infection, and it is due to Escherichia coli, ESBL negative. The patient has a Melgar catheter. Sitting out of the bed. She wants to ambulate. REVIEW OF SYSTEMS: Denies any complaints today. PAST MEDICAL HISTORY: Reviewed. PAST SURGICAL HISTORY: Reviewed. MEDICINES: Reviewed. ALLERGIES: Latex. OBJECTIVE: On examination, temperature is 98.4 degrees, pulse is 80, blood pressure is 113/53, 3 L nasal cannula 99%.HEENT: Atraumatic, normocephalic. Pupils equal and react to light. Tongue is in midline. Neck is supple. No lymphadenopathy. Chest: Bilateral air entry. Distant heart sounds. Belly is soft, obese, nontender. No peripheral edema. No obvious deficits. LABORATORY DATA: Yesterday, white cell count 14.2, hematocrit 31, platelets 209,000. Sodium 141, potassium 3.7, BUN 17, creatinine 2.3, glucose 238. Urinalysis positive for infection. Blood cultures are negative. Urine cultures: ESBL-negative E. coli. Influenza screen was negative. DIAGNOSTIC DATA: 1. CT head: Chronic-appearing white matter changes. 2. Chest x-ray negative. 3. EKG: Normal sinus, low voltage complex, nothing acute. 4. Echocardiography report: EF is 65%. Pulmonary hypertension noted. ASSESSMENT AND PLAN: 1. Altered mental status due to delirium, improving. 2. Urinary tract infection due to extended-spectrum [id number]-ponnyllt Escherichia coli. Intravenous Zosyn 2.25 intravenously q.6. 3. Chronic kidney disease. Creatinine is stable. 4. Coronary artery disease with a stent. 5. Atrial fibrillation, status post ablation. Currently on aspirin 81 mg daily, Eliquis 5 mg p.o. b.i.d., metoprolol 25 daily. 6. Hyperlipidemia, on Lipitor 40 daily. 7. Type 2 diabetes with chronic kidney disease, on Lantus 50 units subcutaneous b.i.d., Humalog 15 units with meals t.i.d., and subcutaneous insulin. 8. Bipolar disorder, on Lamictal 150 p.o. b.i.d., Risperdal 3 mg at bedtime. 9. Positive troponin. Echocardiogram: Normal left ventricular function. Currently on Demadex 100 p.o. b.i.d., chlorthalidone 25 daily. 10. History of chronic obstructive pulmonary disease, asthmatic bronchitis. On albuterol, budesonide and formoterol 1 puff daily. 11. Chronic pain, on Percocet as needed. Plan of care: Discontinue the Melgar catheter. Repeat the labs in the morning. Level of documentation 25 minutes. cc: MD Haile Reyes MD
[2019-07-23] MEDS: LIPITOR PO SCH (20:54)
[2019-07-23] MEDS: RISPERDAL PO SCH (20:54)
[2019-07-23] MEDS: TOPROL XL PO SCH (20:55)
[2019-07-24] MEDS: ZOSYN 2.25 GM in NS 50 ML IV SCH ×3 (05:23→17:10)
[2019-07-24] MEDS: HUMULIN R SUBQ SCH ×4 (06:30→21:13)
[2019-07-24 06:36] LABS: BASO# 0.04 X1000 (0.0-0.2); BASO% 0.5 % (0.0-0.8); EOS% 3.6 % (0.0-10.0); HEMATOCRIT 28.7 % (37.0-47.0); HEMOGLOBIN 8.5 g/dL (12.0-16.0); IMM GRAN# 0.03 X1000 (0.0-0.04); IMM GRAN% 0.4 % (0.0-0.5); LYMPH# 1.12 X1000 (1.2-3.4); LYMPH% 13.3 % (20.5-51.1); MCH 26.8 PG (27-31); MCHC 29.6 g/dL (33-37); MCV 90.5 FL (81-99); MONO# 0.75 X1000 (0.11-0.59); MONO% 8.9 % (1.7-9.3); MPV 9.5 FL (7.4-10.4); NEUT# 6.18 X1000 (1.4-6.5); NEUT% 73.3 % (42.2-75.2); PLT 238 X1000 (130-400); RBC 3.17 XMIL (4.2-5.4); RDW 16.5 % (11.5-14.5); WBC 8.42 X1000 (4.8-10.8)
[2019-07-24 07:58] LABS: CALCIUM 9.1 mg/dL (8.8-10.2); CREATININE 2.4 mg/dL (0.5-0.9); POTASSIUM 3.3 mmol/L (3.5-5.1)
[2019-07-24] MEDS: SYMBICORT 160/4.5 MICROGM INHALER INH SCH (08:20)
[2019-07-24] MEDS: ISORDIL PO SCH ×4 (08:54→16:51)
[2019-07-24] MEDS: LAMICTAL PO SCH ×2 (08:54→20:16)
[2019-07-24] MEDS: LANTUS INSULIN SUBQ SCH ×2 (08:54→20:15)
[2019-07-24] MEDS: LINZESS PO SCH (08:54)
[2019-07-24] MEDS: DEMADEX PO SCH ×2 (08:54→20:17)
[2019-07-24] MEDS: ELIQUIS PO SCH ×2 (08:55→20:16)
[2019-07-24] MEDS: ASPIRIN PO SCH (08:55)
[2019-07-24] MEDS: KLOR-CON PO SCH ×2 (08:55→20:17)
[2019-07-24] MEDS: HUMALOG SUBQ SCH ×3 (08:59→16:52)
[2019-07-24] MEDS: PERCOCET-5 PO PRN ×2 (10:11→20:15)
[2019-07-24] MEDS: HYGROTON PO SCH (10:27)
[2019-07-24] MEDS ORDERED: KLOR-CON PO ONE (11:30)
--- NOTE | 2019-07-24 15:15 | PROGRESS NOTE ---
DATE: 07/24/2019 SUBJECTIVE: This is a 59-year-old white female basically off Melgar catheter last night. She is more mobile, going to the bathroom, peeing very well. REVIEW OF SYSTEMS: None reported. OBJECTIVE: Vital Signs: Temperature is 98.6 degrees, pulse 78, blood pressure 135/56. 3 L nasal cannula 100% and I's and O's 92 -160 mL. She is heavyset not in distress. Heart: Distant heart sounds. Chest: Clear. Belly is soft, obese, nontender. No obvious deficits. INVESTIGATIONS: White cell count 8.4, hematocrit 28.7, platelets 238,000. Sodium 144, potassium 3.6, BUN 75, creatinine 2.4, glucose 91, and urine cultures are Escherichia coli. Blood cultures were negative. ASSESSMENT AND PLAN: 1. Delirium improving. 2. Urinary tract infection. Continue IV Zosyn 2.2 IV q.6. 3. Chronic kidney disease stable. 4. Coronary artery disease status post stent. 5. Paroxysmal atrial fibrillation. Continue aspirin, Eliquis, and metoprolol. 6. Type 2 diabetes, currently on Lantus 50 units subcutaneous b.i.d., Humalog 15 units with meals. Bipolar disorder on Lamictal and Risperdal and history of chronic obstructive pulmonary disease, stable and continue present treatment. LEVEL OF DOCUMENTATION: 25 minutes. cc: MD Haile Reyes MD
[2019-07-24] MEDS: LIPITOR PO SCH (20:15)
[2019-07-24] MEDS: TOPROL XL PO SCH (21:15)
[2019-07-24] MEDS: RISPERDAL PO SCH (21:15)
[2019-07-25] MEDS: PERCOCET-5 PO PRN (02:10)
[2019-07-25] MEDS: ZOSYN 2.25 GM in NS 50 ML IV SCH ×2 (03:57→09:42)
[2019-07-25] MEDS: HUMULIN R SUBQ SCH (06:23)
[2019-07-25 06:47] LABS: BASO# 0.03 X1000 (0.0-0.2); BASO% 0.3 % (0.0-0.8); EOS# 0.29 X1000 (0.0-0.7); EOS% 3.2 % (0.0-10.0); HEMATOCRIT 31.9 % (37.0-47.0); HEMOGLOBIN 9.1 g/dL (12.0-16.0); IMM GRAN# 0.05 X1000 (0.0-0.04); IMM GRAN% 0.5 % (0.0-0.5); LYMPH# 1.54 X1000 (1.2-3.4); LYMPH% 16.8 % (20.5-51.1); MCH 26.1 PG (27-31); MCHC 28.5 g/dL (33-37); MCV 91.4 FL (81-99); MONO# 0.67 X1000 (0.11-0.59); MONO% 7.3 % (1.7-9.3); MPV 9.3 FL (7.4-10.4); NEUT# 6.61 X1000 (1.4-6.5); NEUT% 71.9 % (42.2-75.2); PLT 293 X1000 (130-400); RBC 3.49 XMIL (4.2-5.4); RDW 16.6 % (11.5-14.5); WBC 9.19 X1000 (4.8-10.8)
[2019-07-25 07:23] LABS: CALCIUM 9.1 mg/dL (8.8-10.2); CREATININE 2.3 mg/dL (0.5-0.9)
[2019-07-25 08:07] VITALS: BP 114/51
[2019-07-25] MEDS: SYMBICORT 160/4.5 MICROGM INHALER INH SCH (08:12)
[2019-07-25] MEDS: HYGROTON PO SCH (08:22)
[2019-07-25] MEDS: KLOR-CON PO SCH (08:22)
[2019-07-25] MEDS: DEMADEX PO SCH (08:22)
[2019-07-25] MEDS: ISORDIL PO SCH (08:22)
[2019-07-25] MEDS: ASPIRIN PO SCH (08:22)
[2019-07-25] MEDS: LAMICTAL PO SCH (08:22)
[2019-07-25] MEDS: ELIQUIS PO SCH (08:23)
[2019-07-25] MEDS: LANTUS INSULIN SUBQ SCH (08:23)
[2019-07-25] MEDS: LINZESS PO SCH (08:23)
[2019-07-25] MEDS: HUMALOG SUBQ SCH (08:23)
--- NOTE | 2019-07-26 08:46 | DISCHARGE SUMMARY ---
ADMISSION DATE: 07/21/2019 DISCHARGE DATE: 07/25/2019 FINAL DISCHARGE DIAGNOSES: 1. Metabolic encephalopathy. 2. Urinary tract infection. 3. Chronic respiratory failure. 4. Diabetes mellitus. 5. Cor pulmonale. 6. Hypertension. 7. Gastritis. 8. Chronic kidney disease. 9. Coronary artery disease, status post stent. 10. Paroxysmal atrial fibrillation. 11. Morbid obesity. 12. Chronic low back pain. 13. Osteoarthritis. 14. Stasis dermatitis. HOSPITAL COURSE: Ms. Gamble is a 59-year-old, white, female patient admitted with altered mental status. The patient has diabetes mellitus. Found to have a UTI. Her urine was strong-smelling and dark. Lactate was 4.2. Lab data, urinalysis did reveal urine leukocytes large, too numerous to count WBCs and RBCs. Her initial CBC did reveal leukocytosis with left shift. Her blood sugar was elevated. The patient also had hypokalemia and hyponatremia. Initially, patient was given IV hydration, IV antibiotics. We continued her BiPAP, close observation. Her clinical condition gradually improved. The patient was admitted to stepdown unit. The patient is doing better. Her mentation improved. No high-grade fever or chills. Clinically, patient is doing better. Blood sugar seems to be doing better. I decided to discharge patient home today. 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 PHYSICAL EXAMINATION: Vital Signs: Noted. Neck: Supple. No JVD. Lungs: Bibasilar crepitation. Heart: S1 and S2 heard. Abdomen: Soft, globular. Bowel sounds present. THREAD CHECKER: Alert, awake. Able to move all 4 limbs. Answering questions fairly well. DISCHARGE INSTRUCTIONS: Overall, patient received maximum benefit of hospitalization. I am planning to discharge patient home today. Discussed at length with the patient how to gradually increase her Lantus and Humalog, monitor for hypoglycemia, monitor Accu-Chek. Offered patient home health but she declined. Take medicine regularly. Follow up with psychiatrist as scheduled. In case of more distress, call us back or go to emergency room. Overall discharge condition satisfactory. OTHER LABORATORY DATA: Revealed her electrolytes, sodium 145, BUN 72, creatinine 2.3, potassium was 4. PT/INR 1.66. Chest x-ray revealed negative exam. CT scan of the brain, results reviewed. Follow up with me in a week's time. In case of more distress, call us back or go to emergency room. I discharged her home on Macrobid 100 mg twice a day. Continue rest of the treatment. Fall precaution. Continue BiPAP, home oxygen, and nebulizer treatment. cc: Haile Tovar MD
--- NOTE | 2019-07-31 15:43 | DISCHARGE SUMMARY ---
ADMISSION DATE: 07/21/2019 DISCHARGE DATE: 07/25/2019 PLAN: I reviewed Trinh Gamble's record. He presentation more due to UTI and its consequences. Patient doesn't fit into sepsis. cc: Haile Tovar MD
== END 2019-07-25 10:23 | disposition home or self-care (01) | DRG 689 ==
LOC: ED 00:17 → EDIPHOLD 06:46 → SUATTDRO 06:46 → 2N 07-22 13:28
PROVIDERS: ADMIT Internal Medicine; ATTEND Internal Medicine

== ENCOUNTER 2019-10-06 11:09 | Observation (INO) ==
[2019-10-06] MEDS ORDERED: 1/2 NS 1,000 ML IV SCH (12:00)
--- NOTE | 2019-10-06 12:18 | EKG Report ---
Test Performed on : 10/06/2019 12:04:39 PM Test Reason : baseline Blood Pressure : / mmHG Vent. Rate : 068 BPM Atrial Rate : 312 BPM P-R Int : 000 ms QRS Dur : 080 ms QT Int : 434 ms P-R-T Axes : 063 070 078 degrees QTc Int : 461 ms Atrial flutter. Low voltage QRS Cannot rule out Anteroseptal infarct (cited on or before 30-JUL-2019) Abnormal ECG When compared with ECG of 03-AUG-2019 12:36, Atrial flutter. has replaced Sinus rhythm. Confirmed by Kerline ARAGON, Pedro Herndon ([id number]) on 10/06/2019 2:52:49 PM
--- NOTE | 2019-10-06 13:11 | Diag Imaging Result Doc PS360 ---
EXAM: CHEST-PORTABLE HISTORY: baseline TECHNIQUE: Single view COMPARISON: 07/30/2019 FINDINGS: The lungs are well expanded. The heart is mildly prominent. The vessels are not distended. There are no infiltrates. No effusion identified. IMPRESSION: Stable chest Electronically signed by Davin Barragan 10/06/2019 1:09 PM
[2019-10-06 14:07] LABS: BASO# 0.02 X1000 (0.0-0.2); BASO% 0.2 % (0.0-0.8); EOS# 0.22 X1000 (0.0-0.7); EOS% 2.2 % (0.0-10.0); HEMATOCRIT 32.2 % (37.0-47.0); HEMOGLOBIN 9.7 g/dL (12.0-16.0); IMM GRAN# 0.05 X1000 (0.0-0.04); IMM GRAN% 0.5 % (0.0-0.5); LYMPH# 0.89 X1000 (1.2-3.4); LYMPH% 8.8 % (20.5-51.1); MCH 27.2 PG (27-31); MCHC 30.1 g/dL (33-37); MCV 90.4 FL (81-99); MONO# 0.85 X1000 (0.11-0.59); MONO% 8.4 % (1.7-9.3); MPV 9.5 FL (7.4-10.4); NEUT# 8.11 X1000 (1.4-6.5); NEUT% 79.9 % (42.2-75.2); PLT 273 X1000 (130-400); RBC 3.56 XMIL (4.2-5.4); RDW 18.3 % (11.5-14.5); WBC 10.14 X1000 (4.8-10.8)
[2019-10-06 14:26] LABS: ALB/GLOB RATIO 0.8; ALBUMIN 3.2 g/dL (3.5-5.0); CALCIUM 9.5 mg/dL (8.8-10.2); CREATININE 2.8 mg/dL (0.5-0.9); POTASSIUM 3.3 mmol/L (3.5-5.1); TOTAL BILIRUBIN 0.29 mg/dL (0.20-1.00); TOTAL PROTEIN 7.2 g/dL (6.3-8.3); URIC ACID 18.8 mg/dL (2.4-5.7)
[2019-10-06] MEDS ORDERED: ALBUTEROL NEB INH PRN (15:10)
[2019-10-06] MEDS ORDERED: MILK OF MAGNESIA PO PRN (15:23)
[2019-10-06] MEDS ORDERED: SOLU-MEDROL IV ONE (16:18)
[2019-10-06] MEDS ORDERED: COLCRYS PO ONE (16:19)
[2019-10-06] MEDS: PERCOCET-5 PO PRN (16:19)
[2019-10-06] MEDS: ISORDIL PO SCH (16:37)
[2019-10-06] MEDS ORDERED: HUMALOG SUBQ SCH (17:00)
[2019-10-06] MEDS: KEFZOL 1 GM/D5W 1 GM/50 ML IVPB IV SCH (17:16)
[2019-10-06] MEDS ORDERED: ALBUTEROL NEB INH SCH (18:15)
--- NOTE | 2019-10-06 19:17 | CONSULTATION ---
DATE OF CONSULTATION: 10/06/2019 CHIEF COMPLAINT: Infected right thumb. The patient also had infection in the left thumb, left wrist and shoulder pain. HISTORY OF PRESENT ILLNESS: Ms. Gamble is a 59-year-old white female patient with multiple medical problems including hypertension, hyperlipidemia, chronic kidney disease, COPD, pulmonary hypertension, cor pulmonale, osteoarthritis, diabetes mellitus, paroxysmal atrial fibrillation, depression, sleep apnea and mood disorder. The patient was in her usual state of health. The patient came to see me last week. At that time the patient had symptoms suggestive of abscess on the right thumb. I offered the patient evaluation by a surgeon for possible incision and drainage, but the patient declined. I started her on Augmentin. The patient took the medicine and she was feeling better. Today the patient called me. She had throbbing pain in the right thumb. Also pain in the left wrist and shoulder. Pain was moderate in intensity. More pain with movement. The patient also had evidence of inflammatory arthritis of the left wrist and shoulder. I referred her to surgeon Dr. Serna, who evaluated the patient and admitted her for IV antibiotics and further care. The patient did have chills, low-grade fever. Her blood sugar does fluctuate. The patient is noncompliant to diet and medication. Complaining of vague chest pain, at times palpitations. The patient does get short of breath with exertion. No nausea or vomiting. Oral intake was fair. The patient does have problems with constipation. No bleeding per rectum. Denied any vaginal discharge, spotting or bleeding. No heat or cold intolerance. No major depression or mood swings. After admission the patient was complaining of pain in the left side of the [*]going to the left upper limb. Cardiology consult obtained. No hypoglycemic episode. No further history available at this time. ALLERGIES: Latex. PAST MEDICAL HISTORY: As per HPI, COPD, cor pulmonale, paroxysmal atrial fibrillation, pulmonary hypertension, diabetes mellitus, chronic kidney disease stage 4, depression, mood disorder, osteoarthritis, sleep apnea, history of coronary artery disease, constipation. MEDICATIONS: The patient's current medications include amiodarone, Eliquis, aspirin, Lipitor, Symbicort, chlorthalidone, Lantus insulin, Humalog, isosorbide dinitrate, Lamictal, Linzess, Toprol, Percocet, potassium chloride, risperidone, Zoloft, Demadex. The patient had back pain, being followed by pain clinic. PERSONAL HISTORY: Single, lives with her girlfriend. Quit smoking many months ago. Denied alcohol or substance abuse. Needs minimal assistance in activities of daily living. REVIEW OF SYSTEMS: As per HPI. FAMILY HISTORY: Noncontributory. PHYSICAL EXAMINATION: General: Middle-aged white female patient in mild distress. Rest from the chart. Vital Signs: Blood pressure 119/53, pulse 69, respirations 18, temperature 98.2 degrees. O2 saturation was 100% on 3 L via nasal cannula. Skin: Dry turgor. HEENT: Head atraumatic, normocephalic. Garten conjunctivae. Anicteric sclerae. Extraocular muscle movement normal. Fundus cannot be penetrated. Good oral hygiene. No tonsillopharyngeal congestion or exudate. Ears and nose benign. Neck: Supple. No JVD, thyromegaly or lymphadenopathy. Chest: Bilateral good air entry present. Bibasilar crepitations. Occasional wheezing. Cardiovascular: S1 and S2 heard. No gallop or thrill. Abdomen: Soft, globular. Bowel sounds present. Extremities: No cyanosis or clubbing. Minimal swelling in both legs. Central Nervous System: Alert, awake, able to move all 4 limbs. Musculoskeletal: Crepitation in both knee joints. Movement of left wrist and shoulder painful. Could be due to inflammatory arthritis. Abscess on the right thumb looking much better. ASSESSMENT: 1. The patient's problems include possible right thumb abscess, doing well. 2. Inflammatory arthritis, left wrist. Could be due to gout. Her uric acid level was very high, 18.8. 3. Chronic kidney disease stage 4. 4. Diabetes mellitus, on insulin. 5. Chronic obstructive pulmonary disease and cor pulmonale. 6. Bipolar disorder. 7. Sleep apnea. 8. Chronic low back pain. 9. Gastritis and reflux disease. 10. Paroxysmal atrial fibrillation. LABORATORY DATA: Patient admission lab noted. Potassium was 3.3, CO2 was 32, BUN 116, creatinine 2.8. CBC results reviewed. PLAN: Admit patient. Pain management. Symptomatic treatment. Thanks for consult. We will follow the patient with you. Continue home medicine. Overall plan discussed with the patient and she is in agreement. cc: MD Gianni Rob MD
[2019-10-06] MEDS: SYMBICORT 160/4.5 MICROGM INHALER INH SCH (19:45)
--- NOTE | 2019-10-06 19:52 | CARDIOLOGY CONSULTATION ---
DATE: 10/06/2019 CHIEF COMPLAINT: Pain in the left wrist and the right thumb with redness. REASON FOR CONSULTATION: Abnormal EKG, question of atrial flutter. HISTORY: Miss Gamble is a pleasant, 59-year-old, female who is known to me. The patient had been recently admitted to the hospital back in July 2019 with palpitations and evidence of atrial fibrillation. At this time she is presenting to the attention of Dr. Serna because she developed pain and redness of the right thumb and there was a suspected cellulitis that could potentially require a surgical approach. At the time of admission we did an EKG at 12:04 p.m. that shows a lot of tremor artifact and the computer unfortunately is indicating that the patient is in atrial flutter. I have reviewed that EKG myself. There is no such atrial flutter. There is poor R-wave progression across the anterior leads suggesting possible scar in the anterior wall. The patient says that she has had chest pains off and on. That is a pattern of discomfort that she has had before. We have previously evaluated this patient in great length. At this time she is not having any major obvious change in her cardiopulmonary status. Of note, her blood work today shows that her BUN is very elevated at 160 mg/dL, creatinine is 2.8 mg/dL indicating worsening renal function, and in addition her uric acid is markedly elevated at 18.8 mg/dL being normal up to 5.7 mg/dL. Therefore, in the presence of joint inflammation that she does have, this is a case of acute polyarticular gout. PAST MEDICAL HISTORY: The patient's past medical history is very extensive. The patient has coronary heart disease. Back in 2002 when she was living in [place] she underwent stenting to the LAD at the [facility] in [place]. Then the patient moved to the [facility]. She has been known to us since 2010. We have performed a heart catheterization on her back I believe in 2016. At that time we found that her stent was patent. However, she did have severe pulmonary hypertension, and we did refer the patient to [facility] for management of severe pulmonary hypertension. She has some mild degree of mitral stenosis and mitral regurgitation. She has been evaluated for paroxysmal atrial fibrillation recently and we performed a cardioversion on her in the month of July. The patient's history also includes chronic kidney disease, arterial hypertension, hyperlipidemia, deep venous thrombosis, stomach ulcers, and as I said diabetes mellitus type 2. SURGICAL HISTORY: She had appendectomy, cholecystectomy, ankle surgery, jaw surgery, and chronic back pain. SOCIAL HISTORY: She is . She has grown-up children. FAMILY HISTORY: Positive for coronary heart disease in both parents. REVIEW OF SYSTEMS: Noncontributory. HOME MEDICATIONS: Her home medications at this time include the following. She is taking torsemide 100 mg twice a day, chlorthalidone 25 mg daily, aspirin 81 mg daily, apixaban 5 mg twice a day, amiodarone 200 mg daily, potassium chloride 20 mEq b.i.d., metoprolol succinate 50 in the morning and 25 at night, Linzess 72 mcg daily, Lamictal 50 mg twice a day, isosorbide dinitrate 40 mg 3 times a day, insulin lispro 25 units 3 times a day, and insulin glargine twice a day. (refer to MAR to find out units). She also uses an inhaler, Symbicort. Sertraline 100 mg daily, Risperdal 3 mg at bedtime, and oxycodone for pain. ALLERGIES: Latex. REVIEW OF SYSTEMS: As I said, she does have pulmonary hypertension, so she has chronic exertional dyspnea. Lately she has been very little physically active. She is functional class 3 to 4 according to [employer]. She has chest pains off and on. That relates to her pulmonary hypertension. No other issues at this time. PHYSICAL EXAMINATION: vital signs: Blood pressure 134/49, temperature 98.6 degrees, pulse 66, respirations 18. general: She appears to be chronically ill in no distress. She appears to be much older than her stated age. HEENT: No jugular venous distention. Chest: Clear to auscultation and percussion. Heart: Sounds are regular rhythm. I do not hear a gallop. She does have a systolic murmur over the mitral valve area. There is no rub. Abdomen: Obese and nontender. Extremities: Showed deformities due to arthritis. The right thumb is red, tender, increased local temperature, and warm. The left wrist is also very tender and somewhat red. Extremities showed dystrophic skin changes in both pretibial areas with redness and warmth. Some trace edema. That looks more like chronic stasis dermatitis. Neurologic: Follow commands. Moves 4 extremities. BLOOD WORK: White cell count 10,140, hemoglobin 9.7, hematocrit 32.2%. Sodium 140, potassium 3.3, BUN 116, creatinine 2.8. IMPRESSION: 1. A patient who really comes into the hospital with acute polyarticular gout involving the left wrist and right thumb. She also has redness in the pretibial areas of both legs and they are somewhat tender. 2. Abnormal EKG that shows evidence of a septal scar. There is no evidence of atrial flutter on that EKG. 3. History of coronary heart disease. Previous stent to left anterior descending in 2002 with negative cardiac catheterization 3 years ago. 4. Pulmonary hypertension, severe. Managed by [facility] Pulmonary hypertension clinic. 5. Diabetes mellitus type 2. 6. Chronic kidney disease with worsening function. 7. History of deep venous thrombosis on long-term anticoagulation. RECOMMENDATION: 1. At this time, we will make changes to her medications. We will absolutely have to stop the diuretics because they will make the gout worse. She is not in a fluid overload state at this time. 2. We will give her methylprednisolone 1 time and we will put her on colchicine. We may consider giving her Medrol Dosepak thereafter. 3. We will cut down the dosage of Eliquis because her renal function is really poor and the current dose could lead to bleeding. 4. I am going to cut down on the beta natalie and switch her over to a calcium natalie which is more appropriate for pulmonary hypertension. We will follow her hospital course. Thank you for asking us to participate in her evaluation. cc: MD Gianni Vega MD MTDD
[2019-10-06 20:35] LABS: URINE SOURCE CLEAN CATCH
[2019-10-06] MEDS ORDERED: LIPITOR PO SCH (21:00)
[2019-10-06] MEDS ORDERED: DEMADEX PO SCH (21:00)
[2019-10-06] MEDS ORDERED: RISPERDAL PO SCH (21:00)
[2019-10-06] MEDS ORDERED: ASPIRIN PO SCH (21:00)
[2019-10-06] MEDS ORDERED: TOPROL XL PO SCH (21:00)
[2019-10-06] MEDS ORDERED: ELIQUIS PO SCH (21:00)
[2019-10-06] MEDS ORDERED: LAMICTAL PO SCH (21:00)
[2019-10-06 21:04] LABS: BILIRUBIN URINE NEGATIVE (NEGATIVE); BLOOD URINE TRACE (NEGATIVE); COLOR YELLOW; GLUCOSE URINE NEGATIVE (NEGATIVE); KETONE URINE NEGATIVE (NEGATIVE); LEUKOCYTES URINE NEGATIVE (NEGATIVE); NITRITE URINE NEGATIVE (NEGATIVE); PROTEIN URINE NEGATIVE (NEGATIVE); TURBIDITY URINE CLEAR (CLEAR); UROBILINOGEN URINE NORMAL (NORMAL)
[2019-10-06 21:05] LABS: UR EPITHELIAL CELLS <10 /HPF (<10); URINE BACTERIA NEGATIVE /HPF; URINE RBC <10 /HPF (<10); URINE WBC <10 /HPF (<10)
[2019-10-06] MEDS: ELIQUIS PO SCH (21:34)
[2019-10-06] MEDS: KLOR-CON PO SCH (21:35)
[2019-10-06] MEDS: LAMICTAL PO SCH (21:35)
[2019-10-06] MEDS: LANTUS INSULIN SUBQ SCH (21:35)
[2019-10-07] MEDS: KEFZOL 1 GM/D5W 1 GM/50 ML IVPB IV SCH ×2 (00:30→09:49)
[2019-10-07] MEDS: HUMALOG SUBQ SCH ×4 (06:08→11:33)
--- NOTE | 2019-10-07 07:03 | EKG Report ---
Test Performed on : 10/07/2019 06:34:20 AM Test Reason : Pulmonary hypertension/dyspnea Blood Pressure : / mmHG Vent. Rate : 062 BPM Atrial Rate : 062 BPM P-R Int : 200 ms QRS Dur : 092 ms QT Int : 480 ms P-R-T Axes : 075 049 050 degrees QTc Int : 487 ms Normal sinus rhythm. Low voltage QRS Cannot rule out Anterior infarct (cited on or before 30-JUL-2019) Abnormal ECG When compared with ECG of 06-OCT-2019 12:04, Sinus rhythm. has replaced Atrial flutter. Confirmed by Kerline ARAGON, Pedro Herndon ([id number]) on 10/07/2019 3:34:24 PM
--- NOTE | 2019-10-07 07:41 | PROGRESS NOTE ---
DATE: 10/07/2019 SUBJECTIVE: Ms. Gamble is feeling better. Pain and inflammation in the left wrist and shoulder improving. The patient does have some movement. She denied any fever or chills. The patient was started on colchicine. She received 1 dose of Solu-Medrol. No chest pain or palpitation. Appreciate Cardiology help managing this patient. Denied any nausea or vomiting. No dysuria or hematuria. No diarrhea, blood or mucus in the stool. OBJECTIVE: Vital Signs: Noted. Neck: Supple. No JVD. Lungs: Decreased air entry in both the bases. CVS: S1 and S2 heard. Abdomen: Soft, globular. Bowel sounds present. Extremities: Movement of left wrist and shoulder improving. 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 Able to move all 4 limbs. LABORATORY DATA: Lab data done yesterday reviewed. PATIENT'S PROBLEM LIST: 1. Gout. 2. Arthritis. 3. Chronic kidney disease. 4. Paroxysmal atrial fibrillation. 5. Deep vein thrombosis. 6. Diabetes mellitus. PLAN: We will continue current treatment out of bed to chair. We will be careful giving her steroid because of her underlying diabetes. Continue the rest of the treatment. Close observation. cc: MD Gianni Rob MD
[2019-10-07] MEDS ORDERED: CORDARONE PO SCH (09:00)
[2019-10-07] MEDS ORDERED: TOPROL XL PO SCH ×2 (09:00)
[2019-10-07] MEDS ORDERED: ZOLOFT PO SCH (09:00)
[2019-10-07] MEDS ORDERED: LINZESS PO SCH (09:00)
[2019-10-07] MEDS ORDERED: HYGROTON PO SCH (09:00)
[2019-10-07] MEDS ORDERED: COLCRYS PO SCH (09:00)
[2019-10-07] MEDS: ISORDIL PO SCH ×2 (09:49→13:52)
[2019-10-07] MEDS: ELIQUIS PO SCH (09:49)
[2019-10-07] MEDS: KLOR-CON PO SCH (09:49)
[2019-10-07] MEDS: LAMICTAL PO SCH (09:49)
[2019-10-07] MEDS: LANTUS INSULIN SUBQ SCH (09:50)
--- NOTE | 2019-10-07 10:07 | Diag Imaging Result Doc PS360 ---
EXAM: US ABDOMEN-COMPLETE 10/07/2019 HISTORY: BUN and Creatinine elevated TECHNIQUE: Abdominal ultrasound COMMENT: The common bile duct measures less than 4 mm in diameter. The liver is slightly hyperechoic. The pancreatic head is normal in appearance remainder is obscured. There is antegrade flow in the portal vein. The visualized portions of the aorta and inferior vena cava are within normal limits. The spleen is is slightly enlarged at 13.6 cm. There is some prominence of the collecting system of the left kidney and some thinning of the cortex. The kidney is only 9.6 cm in length. This is slightly smaller than the 10.3 cm in length present on the previous study of 04/06/2019. There are no abnormal fluid collections. The gallbladder is surgically absent. IMPRESSION: Left renal atrophy and questionable mild hydronephrosis. Mild hepatic steatosis. Borderline splenomegaly. Electronically signed by Chester Dozier 10/07/2019 10:05 AM
[2019-10-07] MEDS: SYMBICORT 160/4.5 MICROGM INHALER INH SCH (11:24)
[2019-10-07] MEDS: PERCOCET-5 PO PRN (11:30)
[2019-10-07 12:03] VITALS: BP 157/55
--- NOTE | 2019-10-07 14:41 | NEPHROLOGY CONSULTATION ---
DATE: 10/07/2019 REASON FOR CONSULTATION: Chronic kidney disease. HISTORY OF PRESENT ILLNESS: Ms Gamble is a 59-year-old white female who was admitted to the hospital because of pain in the right thumb and left wrist. She was evaluated as an outpatient by Dr. Tovar and by Dr. Serna. Clinical diagnosis of gout. No incision and drainage was performed and no arthrocentesis. She was treated with steroids and with low-dose colchicine with improvement in her symptoms though not resolution. Her creatinine yesterday was 2.8 with BUN of 116. She has baseline creatinine of around 2 to 2.5 and her BUN is frequently around 70 to 80. She does not have new uremic type symptoms. PAST MEDICAL HISTORY: Obesity, gout, diabetes, hypertension, hyperlipidemia, atrial fibrillation, etc. HOME MEDICATIONS: Include Risperdal, Lamictal, atorvastatin, isosorbide, aspirin, potassium, chlorthalidone, apixaban, Linzess, insulin, Symbicort, torsemide, sertraline, oxycodone, metoprolol, amiodarone. ALLERGIES: Latex. SOCIAL HISTORY: She lives with her . Has a history of a mood disorder. FAMILY HISTORY: Otherwise noncontributory. REVIEW OF SYSTEMS: Otherwise noncontributory. PHYSICAL EXAMINATION: Vital Signs: Blood pressure 155/55, heart rate 56, respirations 15, afebrile. General: No acute distress. Skin: Warm and dry, somewhat pale. Bruising. HEENT: Pupils are equal. Conjunctivae are pink. Neck: Neck veins are not distended. Heart: Regular with a murmur. Lungs: Equal. No crackles or wheezes. Abdomen: Soft, nontender. Bowel sounds are present. Extremities: With trace edema. No clubbing or cyanosis. Mild erythema and tenderness left wrist and right 1st PIP. IMPRESSION: 1. Acute gout. Agree with low-dose colchicine. Clinically improving. 2. Chronic kidney disease. Creatinine is above baseline but no clear trend of worsening. She has an appointment with us within the next 4 weeks. We will check labs again in 1 week and see her in the office. Okay for discharge from my perspective. cc: MD Gianni Falcon MD
[2019-10-07] MEDS ORDERED: CARDIZEM CD PO SCH (21:00)
[2019-10-09] MEDS ORDERED: COLCRYS PO SCH (09:00)
== END 2019-10-07 13:53 | disposition home or self-care (01) ==
LOC: DIRADM → 4N 11:09 → 2N 17:21
PROVIDERS: ADMIT Surgery; ATTEND Surgery